=== PATIENT | female | born 1955 | race Caucasian/White ===

== ENCOUNTER 2020-03-10 13:02 | Outpatient (REF) | payer MEDICARE, OTHER, SELFPAY ==
--- NOTE | 2020-03-10 | XR_ITS ---
EXAMINATION: XR SHOULDER, RIGHT CLINICAL INFORMATION: Pain COMPARISON: None TECHNIQUE: Three views of the right shoulder. FINDINGS: Bone alignment is normal. No acute fracture or dislocation is seen. There is an old right ninth and 10th rib fractures. Glenohumeral and acromioclavicular joints are normal. Soft tissues are normal. XR/XR shoulder RT min 2V IMPRESSION: Normal right shoulder. Old right rib fractures.
== END 2020-03-10 13:03 | disposition home or self-care (01) ==
LOC: HO.HMGCX 13:02
PROVIDERS: PCP Internal Medicine; Visit Provider Internal Medicine
DX: M25.511 Pain in right shoulder (principal)
CPT/HCPCS: 73030

== ENCOUNTER 2020-03-27 13:28 | Outpatient (REF) | payer MEDICARE, OTHER, SELFPAY ==
--- NOTE | 2020-03-27 | MR_ITS ---
EXAMINATION: MR SHOULDER WITHOUT CONTRAST, RIGHT CLINICAL INFORMATION: Right shoulder pain. Limited range of motion. COMPARISON: 03/10/2020 TECHNIQUE: MRI of the shoulder without contrast was performed on a high-field scanner. FINDINGS: ROTATOR CUFF: There is mild supraspinatus and subscapularis tendinosis. No rotator cuff tears. No muscle atrophy or fatty infiltration. BICEPS: Normal. CORACOACROMIAL ARCH: The undersurface of the acromion is minimally curved with no subacromial spur. The acromioclavicular joint is normal. LABRUM/CAPSULE: The labrum is intact. The joint capsule is thickened and edematous at the inferior glenohumeral ligament around the axillary pouch and, to a lesser extent, at the coracohumeral and superior glenohumeral ligaments. GLENOHUMERAL JOINT/MARROW: Trace effusion. Small glenoid osteophytes are present. No fracture or malalignment. Articular cartilage appears relatively well-preserved. MR/MR shoulder RT wo con IMPRESSION: 1. Capsular thickening and edema at the right glenohumeral joint are most consistent with adhesive capsulitis provided the appropriate clinical suspicion. A capsular sprain is also possible. 2. Mild supraspinatus and subscapularis tendinosis. No tears. 3. Minimal glenohumeral osteoarthritis.
== END 2020-03-27 13:29 | disposition home or self-care (01) ==
LOC: HO.MRI 13:28
PROVIDERS: Visit Provider Internal Medicine
DX: R52 Pain, unspecified (principal)
CPT/HCPCS: 73221

== ENCOUNTER 2020-04-18 13:00 | Outpatient (RCR) | payer MEDICARE, OTHER, SELFPAY ==
--- NOTE | 2020-05-15 13:20 | MHC.PT.DC ---
[facility] [place] Office [place] [facility] [place] Office [address] Rai Sanders [address] [phone] F: [phone] F: [phone] F: [phone] F: [phone] Physical Therapy Discharge Report Diagnosis: This is a 64 yo female presenting to skilled PT with a script for R shoulder pain. Date of Surgery: Date of Evaluation: 04/02/20 Date of Discharge: 05/15/20 Treatments to Date: 2 Cancellations to Date: 0 No Shows to Date: 0 Discharge Status: Achieved Goals Improved Function Independent with HEP Discharge Summary: Patient tolerated all exercises well without increase in pain. She feels like she can perform the exercises at home for now. Educated her to call the office if needed to review exercises in the mean time otherwise DC to HEP (kept chart open for 30 days prior to DC). Electronically signed by: Evangelina Grant PT Please sign and return to therapist. Thank you for your referral.
== END 2020-05-15 13:20 | disposition home or self-care (01) ==
LOC: HO.PTCHIC 13:00
PROVIDERS: PCP Internal Medicine; Visit Provider Internal Medicine
DX: M25.511 Pain in right shoulder (principal)
CPT/HCPCS: 97110; 97162

== ENCOUNTER → 2020-05-27 08:14 | Outpatient (BNVA) | payer MEDICARE, OTHER, SELFPAY | PROVIDERS: Visit Provider Orthopaedic Surgery | DX: M75.01 Adhesive capsulitis of right shoulder (principal) | CPT/HCPCS: Q3014 ==

== ENCOUNTER 2020-07-02 13:00 | Outpatient (RCR) | payer MEDICARE, OTHER, SELFPAY ==
--- NOTE | 2020-06-02 08:18 | MHC.PT.EP ---
[facility] [place] Office [place] Office [place] Office [address] Rai Sanders [address] [phone] F: [phone] F: [phone] F: [phone] F: [phone] Physical Therapy Plan of Care Date of Evaluation: 06/02/20 Date of Surgery: NA Diagnosis: Adhesive capsulitis R shoulder Assessment: 64 y/o LHD female referred to skilled PT for R shoulder adhesive capsultis. Reports limited with reaching overhead into cabinets, lifting, and reaching behind her back. Examination shows decreased R shoulder A/PROM, decreased shoulder strength, very poor posturing and decreased glenohumeral joint mobility. She demos increased thoracic kyphosis, anteriorly placed GHJ and grossly rounded posturing with forward head. Recommend skilled PT 2x/week for 6 weeks to address impairments, implement HEP, and optimize functional mobility. Frequency and Duration: The patient will be seen 2x/week for 6 weeks Short Term Goals: 3 weeks: 1. I with HEP 2. Improve R shoulder AROM to 130 in standing to assist in reaching overhead 3. Pt will demonstrate no trunk compensation with shoulder AROM exercises [employer] Goals: 6 weeks: 1. I with HEP and self management of sx 2. Pt will be improve R shoulder strength by 1 MMT grade to assist in carrying 15# grocery bags with pain < 2/10 Treatment Plan: Modalities to reduce pain, spasms and effusion. Manual therapy to restore motion and function. Therapeutic exercise to improve strength and flexibility. Neuromuscular re-education for posture and balance. Therapeutic activities to return to functional activities of daily living. Electronically signed by: Kamila Reynoso PT Please sign and return to therapist. Thank you for your referral.
--- NOTE | 2020-07-11 08:29 | MHC.PT.DC ---
[facility] [place] Office [place] Office [place] Office [address] Rai Sanders [address] [phone] F: [phone] F: [phone] F: [phone] F: [phone] Physical Therapy Discharge Report Diagnosis: Adhesive capsulitis R shoulder Date of Surgery: NA Date of Evaluation: 06/02/20 Date of Discharge: 07/11/20 Treatments to Date: 6 Cancellations to Date: 0 No Shows to Date: 0 Discharge Status: Improved Function Independent with HEP Discharge Summary: Pt called and reported seeing [facility]. Per patient, they said she has full ROM and no longer needs PT. She was going to come for last visit today but she is sick so sef-discharge via phone. She is I with HEP and improved function. D/c at this time. Electronically signed by: Meg Arroyo PTA Please sign and return to therapist. Thank you for your referral.
== END 2020-07-11 08:30 | disposition home or self-care (01) ==
LOC: HO.PTCHIC 13:00
PROVIDERS: Visit Provider Orthopaedic Surgery
DX: M75.01 Adhesive capsulitis of right shoulder (principal)
CPT/HCPCS: 97110; 97140; 97161

== ENCOUNTER → 2020-07-08 11:39 | Outpatient (BNVA) | payer MEDICARE, OTHER, SELFPAY | PROVIDERS: Visit Provider Orthopaedic Surgery | DX: M75.01 Adhesive capsulitis of right shoulder (principal) | CPT/HCPCS: 99212 ==

== ENCOUNTER 2020-09-18 13:50 | Outpatient (REF) | payer MEDICARE, OTHER, SELFPAY ==
--- NOTE | ~2020-09-18 | US_ITS ---
EXAMINATION: US RETROPERITONEAL LIMITED (RENAL ONLY) CLINICAL INFORMATION: Lipomatous neoplasm of kidney. COMPARISON: Renal ultrasound 09/19/2019 and 10/20/2018. CT abdomen and pelvis 01/07/2015. TECHNIQUE: Real-time imaging of the kidneys. FINDINGS: RIGHT KIDNEY: 9.9 x 5.1 x 4.9 cm (SAG x AP x TRV). The kidney is normal in size, contour, and echogenicity. Renal cortical thickness is normal. No renal calculi or hydronephrosis. There is an anechoic cyst in the mid pole measuring 1.0 x 0.7 x 1.1 cm and a lower pole cyst measuring 0.7 x 0.6 x 0.7 cm. There is an echogenic solid mass in the mid pole medially measuring 1.2 x 1.8 x 1.7 cm, angiomyolipoma; previously it measured 2.2 x 2.0 x 1.[address] of 2014, it measured 2.1 x 1.8 x 1.6 cm. LEFT KIDNEY: 10.6 x 4.9 x 5 cm (SAG x AP x TRV). The kidney is normal in size, contour, and echogenicity. Renal cortical thickness is normal. No calculi or focal parenchymal lesions. No hydronephrosis. US/US renal BI IMPRESSION: Stable right renal angiomyolipoma. There are 2 right renal cysts. The interpolar cyst was seen previously and measured 0.8 cm and appears unchanged. There is a new cyst in the mid pole measuring 1.0 cm. Unremarkable left kidney.
== END 2020-09-18 13:51 | disposition home or self-care (01) ==
LOC: HO.US 13:50
PROVIDERS: Visit Provider Urology
DX: D17.71 Benign lipomatous neoplasm of kidney (principal)
CPT/HCPCS: 76775

== ENCOUNTER → 2020-09-23 13:32 | Outpatient (BNVA) | payer MEDICARE, OTHER, SELFPAY | PROVIDERS: PCP Internal Medicine; Referring Provider Internal Medicine; Visit Provider Urology | DX: D17.71 Benign lipomatous neoplasm of kidney (principal) | CPT/HCPCS: Q3014 ==

== ENCOUNTER 2020-10-10 15:53 | Outpatient (REF) | payer MEDICARE, OTHER, SELFPAY ==
--- NOTE | ~2020-10-10 | MM_ITS ---
EXAMINATION: MM SCREENING DIGITAL BREAST TOMOSYNTHESIS, BILATERAL CLINICAL INFORMATION: Screening. Asymptomatic. The lifetime risk of breast cancer based on the Tyrer-Cuzick Model is 5%. COMPARISON: Mammography: 02/05/2019, 12/15/2017, 11/10/2016 TECHNIQUE: Digital breast tomosynthesis is performed in both the craniocaudal and mediolateral oblique views along with computer-aided detection (CAD). Synthesized 2D images are generated from the tomosynthesis. FINDINGS: The breasts are heterogeneously dense, which may obscure small masses (ACR BI-RADS breast composition Category c). Breast tissue composition borders on extremely dense. Parenchymal pattern is similar to prior studies. There is asymmetry of the breasts, larger on left similar to prior exam. Again, there are diffuse calcifications present, more numerous on left. There is no interval mass or architectural abnormality or developing density. The axilla and skin contours are unremarkable. MM/MM tomosynthesis screening BI IMPRESSION: No mammographic evidence of malignancy. No significant changes from prior studies. ASSESSMENT: BI-RADS 2: Benign RECOMMENDATION: Routine annual mammography screening. This patient's information was entered into a reminder system with a target due date for their next mammogram.
== END 2020-10-10 15:54 | disposition home or self-care (01) ==
LOC: HO.MAMMO 15:53
PROVIDERS: PCP Internal Medicine; Visit Provider Internal Medicine
DX: Z12.31 Encounter for screening mammogram for malignant neoplasm of breast (principal)
CPT/HCPCS: 77063; 77067

== ENCOUNTER 2020-12-29 08:32 | Day surgery (SDC) | payer MEDICARE, OTHER, SELFPAY ==
[2020-12-19 16:11] VITALS: BMI 18.9
--- NOTE | 2020-12-29 07:05 | MHC.SHP ---
Pre-Procedural Eval Section A Date of Service: 12/29/20 Section B Chief Complaint: Right Eye Cataract Allergies: Allergies Allergy/AdvReac Type Severity Reaction Status Date / Time aspirin AdvReac Unknown has an Uncoded 12/19/20 16:11 ulcer naproxen AdvReac Unknown ulcer Uncoded 12/19/20 16:11 Plan I have reviewed the history and physical and performed a pertinent physical examination on my patient. No changes have occurred unless specified.
[2020-12-29 11:29] VITALS: BP 153/69; PULSE 72; RESP 16; TEMP 37.1; O2SAT 99
[2020-12-29] MEDS: Lactated Ringers 500 ML 50 ML IVCONT (11:43)
[2020-12-29] MEDS: Tetracaine HCl/PF 0.5% Oph Sol 4 ML DROPS 1 DROP EYE-RIGHT (11:46)
[2020-12-29] MEDS: Tropicamide 1 % Ophth Sol 3 ML BTL 1 DROP EYE-RIGHT ×3 (11:47→11:56)
[2020-12-29] MEDS: Phenylephrine HCL 2.5% Oph SoL 2 ML BOTTLE 1 DROP EYE-RIGHT ×3 (11:50→11:59)
--- NOTE | 2020-12-29 12:00 | P.CONAN_ITS ---
HPI - Anesthesia Eval Consult details Narrative: Right eye cataract PMFSH Active Problems Active Problems: All Active Problems (Updated 12/19/20 @ 16:11 by Ava Sherman) Adhesive capsulitis of right shoulder (Acute) Angiomyolipoma of kidney (Acute) Past Medical History Medical History Benign tumor of kidney COVID-19 vaccine series completed Hx of gastric ulcer Hypertension Osteoporosis Family History Family history of problems with anesthesia: No Surgical History Surgical History History of tonsillectomy and adenoidectomy Hx of colonoscopy Hx of left cataract extraction S/P ear surgery [place] teeth extracted History of Problems with Anesthesia: No Social History Social History Are you a primary aged or disabled care worker to a significant other at home: No Do you presently have visiting nurse or other home services: No Patient Tobacco Use Status: Never used Tobacco Use of substances other than those prescribed or required for medical reasons: No Have you been hit, kicked, punched, or otherwise hurt by someone within the past year? If so, by whom?: No Are you DNR?: No Advance Directives: No Advance Directives Information Provided: No Advance Directives on File: No Recently lost weight without trying: No Eating poorly because of decreased appetite: No Nutrition Risks: No Nutritional Risk Patient : No Current occupational status: retired Current occupation: Left Handed Meds Allergies Allergy/AdvReac Type Severity Reaction Status Date / Time aspirin AdvReac Unknown has an Uncoded 12/29/20 11:28 ulcer naproxen AdvReac Unknown ulcer Uncoded 12/29/20 11:28 Active Medications: Current Medications Generic Name Dose Route Start Last Admin Trade Name Freq PRN Reason Stop Dose Admin Lactated Ringer's 1,000 mls @ 50 mls/hr 12/26/20 12:15 Lr IVCONT .Q20H CLOVER Lactated Ringer's 500 mls @ 50 mls/hr 12/29/20 07:45 12/29/20 11:43 Lr IVCONT 50 mls/hr .Q10H CL[place] Administration Povidone Iodine 1 appl 12/29/20 07:05 Povidone Iodine 5 % Ophth Soln 30 Ml Bottle EYE-RIGHT PREOP PRN Pre-Op Surgical Implant Prophy Home Medications Medication Instructions Recorded Confirmed Last Taken Type alendronate 70 mg tablet 70 mg PO QWEEK 04/15/20 12/19/20 Unknown History atorvastatin 20 mg tablet 20 mg PO BEDTIME 04/15/20 12/19/20 Unknown History losartan 50 mg tablet 50 mg PO DAILY 09/23/20 12/19/20 12/29/20 06:00 History omeprazole 20 mg capsule,delayed 20 mg PO DAILY 12/19/20 12/19/20 12/29/20 06:00 History release Exam Exam Date and Time: December 29, 20201199 Height,Weight and Vital Signs: Height 5 ft 5 in Weight 51.71 kg Last Vital Signs Temp 98.7 F 12/29/20 11:29 Pulse 72 12/29/20 11:29 Resp 16 12/29/20 11:29 BP 153/69 H 12/29/20 11:29 Pulse Ox 99 12/29/20 11:29 Airway Mallampati Class: II TM Dist: >3cm Neck ROM: Full Denture: Upper and Lower Loose/Missing/Broken Teeth: Yes Heart: [id number] Lungs: cta b/l Assessment and Plan Assessment Anesthesia Assessment: Anesthesia Plan Discussed and Chart Reviewed Final Anesthetic Review Family History of Problems with Anesthesia: No History of Problems with Anesthesia: No NPO: Yes ASA Class: III Final Preanesthetic Review: No Changes in Pt Med Stat, Meds/Allgs Chart Reviewed, Consent Obtained/Reviewed and Anes Risks/Benef Reviewed Patient Risk: Intermediate Procedure Risk: Low Assessment/Block/Sedation in SS: Assess/Block/Sedation-SS Anesthetic Plan Anesthetic Plan: MAC: and Agree w/ Assess. and Plan Disposition: Standard PACU
--- NOTE | 2020-12-29 12:42 | HO.PNOPHT ---
Ophthalmology Procedure Procedure Date of Service: 12/29/20 Ophthalmology Viscoelastic: Crystal Oharat Dual Pack Pro Ophthalmology Lenses: TECNIS [id number] (16.5) Procedure Notes: PREOPERATIVE DIAGNOSIS: Decreased visual acuity right eye secondary to cataract POSTOPERATIVE DIAGNOSIS: Same PROCEDURE: Right cataract extraction with intraocular lens insertion with Posterior Capsulotomy SURGEON: Damien Bui M.D. ANESTHESIA: Topical/MAC ESTIMATED BLOOD LOSS: None COMPLICATIONS: None After obtaining informed consent, the patient was brought to the operating room suite and placed in the supine position. After adequate sedation per anesthesia, topical drops of Tetracaine were given to the right eye. The eye was then prepped and draped in the usual sterile fashion. The operating room microscope was then positioned over the operative eye and a lid speculum placed. A paracentesis was created. Viscoelastic was then instilled into the anterior chamber. A three plane incision was then created temporally, utilizing a 2.85 mm keratome. Capsulotomy forceps were then utilized to create a circular tear capsulotomy. Hydrodissection and hydrodelineation were carried out until adequate mobilization of the nucleus occurred. Phacoemulsification was then utilized to remove the dense central nucleus followed by removal of the cortical material utilizing the automated aspiration irrigation unit. Viscoelastic was instilled into the posterior capsular bag followed by a Posterior Capsulotomy due to a dense posterior capsular opcaity. Placement of a posterior chamber intraocular lens withoutdifficulty into the sulcus with Optic capture The residual Viscoelastic was then removed utilizing the automated IA machine. The wound was checked and found to be watertight. The patient tolerated the procedure well and the lid speculum was removed. Intracameral injection of Vigamox 0.1 mL followed by a subtenon injection of Kenalog-40 0.2 mL were administered. The patient will be seen in the a.m.
[2020-12-29 13:30] VITALS: BP 146/64; PULSE 58; RESP 16; TEMP 36.7; O2SAT 98
[2020-12-29] MEDS: Acetaminophen 325 MG TABLET 650 MG PO (13:30)
== END 2020-12-29 13:46 | disposition home or self-care (01) ==
PROVIDERS: PCP Internal Medicine; Visit Provider Ophthalmology
PROC: (CPT 66985; principal; 2020-12-29 11:40)
DX: H25.11 Age-related nuclear cataract, right eye (principal); H54.7 Unspecified visual loss; Z96.1 Presence of intraocular lens; I10 Essential (primary) hypertension; M81.0 Age-related osteoporosis without current pathological fracture; Z79.899 Other long term (current) drug therapy
CPT/HCPCS: 66984; J3010; J3300; V2632

== ENCOUNTER 2021-09-23 15:36 | Outpatient (REF) | payer MEDICARE, OTHER, SELFPAY ==
--- NOTE | ~2021-09-23 | US_ITS ---
EXAMINATION: US RETROPERITONEAL LIMITED (RENAL ONLY) CLINICAL INFORMATION: Calculus of kidney. COMPARISON: Renal ultrasound 09/18/2020, renal ultrasound 09/19/2019, CT abdomen and pelvis 01/07/2015 TECHNIQUE: Real-time imaging of the kidneys. FINDINGS: RIGHT KIDNEY: 9.4 x 3.3 x 4.3 cm (SAG x AP x TRV). Renal cortical thickness is normal. No renal calculi or hydronephrosis. There are 3 subcentimeter cysts present two of which are within the midpole region and the third is in the lower pole. Within the interpolar region there is a homogeneously hyperechoic lesion measuring 2.0 x 1.7 x 1.7 cm in size representing a stable angiomyolipoma. LEFT KIDNEY: 10.3 x 4.8 x 4.3 cm (SAG x AP x TRV). The kidney is normal in size, contour, and echogenicity. Renal cortical thickness is normal. No calculi or focal parenchymal lesions. No hydronephrosis. US/US renal BI IMPRESSION: Stable renal ultrasound study demonstrating multiple right renal subcentimeter cysts as well as a stable angiomyolipoma.
== END 2021-09-23 15:37 | disposition home or self-care (01) ==
LOC: HO.US 15:36
PROVIDERS: Visit Provider Urology
DX: D17.71 Benign lipomatous neoplasm of kidney (principal); N20.0 Calculus of kidney
CPT/HCPCS: 76775

== ENCOUNTER → 2021-11-17 10:08 | Outpatient (BNVA) | payer MEDICARE, OTHER, SELFPAY | PROVIDERS: PCP Internal Medicine | DX: D17.71 Benign lipomatous neoplasm of kidney (principal) | CPT/HCPCS: Q3014 ==

== ENCOUNTER 2021-11-26 10:11 | Outpatient (REF) | payer MEDICARE, OTHER, SELFPAY ==
--- NOTE | ~2021-11-26 | MM_ITS ---
EXAMINATION: MM SCREENING DIGITAL BREAST TOMOSYNTHESIS, BILATERAL CLINICAL INFORMATION: Screening. Asymptomatic. The lifetime risk of breast cancer based on the Tyrer-Cuzick Model is 5%. COMPARISON: Mammography: 10/10/2020, 02/05/2019, 12/15/2017 TECHNIQUE: Digital breast tomosynthesis is performed in both the craniocaudal and mediolateral oblique views along with computer-aided detection (CAD). Synthesized 2D images are generated from the tomosynthesis. Additional bilateral MLO views are provided. FINDINGS: The breasts are heterogeneously dense, which may obscure small masses (ACR BI-RADS breast composition Category c). Mammography and is similar to prior studies. There is no interval mass or developing density or architectural abnormality. Breast tissue composition borders on extremely dense. The axilla and skin contours are unremarkable. Again, there are numerous punctate round calcifications, greater in number on left. Distribution and number appears similar to prior studies. Again, there are breast asymmetry, left larger. No significant changes. MM/MM tomosynthesis screening BI IMPRESSION: No significant changes from prior studies. ASSESSMENT: BI-RADS 2: Benign RECOMMENDATION: Routine annual mammography screening. This patient's information was entered into a reminder system with a target due date for their next mammogram.
== END 2021-11-26 10:12 | disposition home or self-care (01) ==
LOC: HO.MAMMO 10:11
PROVIDERS: Visit Provider Internal Medicine
DX: Z12.31 Encounter for screening mammogram for malignant neoplasm of breast (principal)
CPT/HCPCS: 77063; 77067

== ENCOUNTER 2022-04-05 12:40 | Outpatient (REF) | payer MEDICARE, OTHER, SELFPAY | END 2022-04-05 12:41 | disposition home or self-care (01) | LOC: HO.HAP 12:40 | PROVIDERS: Visit Provider Internal Medicine | DX: Z13.89 Encounter for screening for other disorder (principal) ==

== ENCOUNTER 2022-05-03 08:23 | Outpatient (REF) | payer SELFPAY | END 2022-05-03 08:24 | disposition home or self-care (01) | LOC: HO.HAP 08:23 | PROVIDERS: Visit Provider Internal Medicine | DX: Z46.1 Encounter for fitting and adjustment of hearing aid (principal); H90.3 Sensorineural hearing loss, bilateral | CPT/HCPCS: V5014 ==

== ENCOUNTER 2022-08-23 10:23 | Outpatient (REF) | payer MEDICARE, OTHER, SELFPAY ==
--- NOTE | ~2022-08-23 | US_ITS ---
EXAMINATION: US RETROPERITONEAL LIMITED (RENAL ONLY) CLINICAL INFORMATION: Benign lipomatous neoplasm of kidney. COMPARISON: Renal ultrasound 09/23/2021 CT abdomen and pelvis 01/07/2015. TECHNIQUE: Real-time imaging of the kidneys. FINDINGS: RIGHT KIDNEY: 9.8 x 3.8 x 5.6 cm (SAG x AP x TRV). The kidney is normal in size, contour, and echogenicity. Renal cortical thickness is normal. No hydronephrosis. Benign-appearing renal cysts measuring up to 0.9 cm. A 1.7 cm echogenic avascular right lower pole renal lesion corresponding to a macroscopic fat-containing angiomyolipoma on prior CT, previously 1.8 cm. Right renal parenchymal cortical scarring. 2 mm nonobstructing lower pole renal stone. LEFT KIDNEY: 10.9 x 3.7 x 4.5 cm (SAG x AP x TRV). The kidney is normal in size, contour, and echogenicity. Renal cortical thickness is normal. No calculi or focal parenchymal lesions. No hydronephrosis. US/US renal BI IMPRESSION: 1. A 2.7 cm echogenic avascular right lower pole renal lesion corresponding to a macroscopic fat-containing angiomyolipoma on prior CT. 2. A 2 mm nonobstructing right lower pole renal stone.
== END 2022-08-23 10:24 | disposition home or self-care (01) ==
LOC: HO.HMGCX 10:23
PROVIDERS: PCP Internal Medicine; Visit Provider Nurse Practitioner Family
DX: D17.71 Benign lipomatous neoplasm of kidney (principal)
CPT/HCPCS: 76775

== ENCOUNTER 2022-12-23 14:16 | Outpatient (REF) | payer MEDICARE, OTHER, SELFPAY ==
--- NOTE | ~2022-12-23 | MM_ITS ---
EXAMINATION: MM SCREENING DIGITAL BREAST TOMOSYNTHESIS, BILATERAL CLINICAL INFORMATION: Screening. Asymptomatic. COMPARISON: Mammography: This study is compared with prior exams dating back to 2018. TECHNIQUE: Digital breast tomosynthesis is performed in both the craniocaudal and mediolateral oblique views along with computer-aided detection (CAD). Synthesized 2D images are generated from the tomosynthesis. FINDINGS: The breasts are heterogeneously dense, which may obscure small masses (ACR BI-RADS breast composition Category c). There are no significant masses, abnormal calcifications, or other abnormalities. Bilateral benign calcifications are present in each breast. MM/MM tomosynthesis screening BI IMPRESSION: No mammographic evidence of malignancy. ASSESSMENT: BI-RADS BI-RADS 2 - Benign Findings RECOMMENDATION: Routine annual mammography screening. 1 year F/U This examination should not preclude the clinical evaluation of a suspicious palpable abnormality. This patient's information was entered into a reminder system with a target due date for their next mammogram.
== END 2022-12-23 14:17 | disposition home or self-care (01) ==
LOC: HO.MAMMO 14:16
PROVIDERS: PCP Internal Medicine; Visit Provider Internal Medicine
DX: Z12.31 Encounter for screening mammogram for malignant neoplasm of breast (principal)
CPT/HCPCS: 77063; 77067

== ENCOUNTER → 2022-12-23 15:15 | Outpatient (BNV) | payer MEDICARE, OTHER, SELFPAY | PROVIDERS: PCP Internal Medicine; Visit Provider Radiology Diagnostic Radiology | DX: Z12.31 Encounter for screening mammogram for malignant neoplasm of breast (principal) | CPT/HCPCS: 77063; 77067 ==

== ENCOUNTER 2022-12-24 09:40 | Outpatient (AMB) | payer MEDICARE, OTHER, SELFPAY ==
--- NOTE | 2022-12-24 09:45 | A.OFFVIS_ITS ---
Intake Intake Visit Reasons: 1 year follow up with US(set) Intake Note: Patient is present for follow up angiomyolipoma of kidney/ultrasound (imaging 08/23/22) Urology Medication: None Blood Thinner: None Software Quality Assurance Analyst Required: No Accompanied by: Self / Same As Patient Allergies aspirin Adverse Reaction (Unknown, Uncoded 12/24/22 10:06) has an ulcer naproxen Adverse Reaction (Unknown, Uncoded 12/24/22 10:06) ulcer Medication List - Last Reconciled 12/24/22 by LESIA Danielle alendronate 70 mg PO QWEEK atorvastatin 20 mg PO BEDTIME loratadine 10 mg PO DAILY losartan 50 mg PO DAILY omeprazole 20 mg PO DAILY propranolol ER 160 mg PO DAILY pyridoxine (vitamin B6) 100 mg PO DAILY 90 days HPI HPI Comments History of Present Illness Details Zoe is a very pleasant 67-year-old female patient of Dr. Fontanez. She has a past medical history of gastric ulcer, hypertension, and osteoporosis. She presents to the office today for follow-up of her angiomyolipoma. In discussion with the patient today she reports to be doing and feeling well. Recent renal imaging results reviewed with the patient today. Right kidney with benign-appearing renal cysts measuring up to 0.9 cm. A 1.7 echogenic avascular right lower pole renal lesion corresponding to a microscopic fat containing angiolipoma on prior CT previously 1.8 cm. 2 mm non obstructing lower pole renal calculi. Left kidney with no calculi, lesions, and or hydronephrosis noted. Patient denies any urinary issues or concerns at this time. When asked she denies urinary urgency, urinary frequency, incontinence, nocturia, hematuria, dysuria, foul smelling urine, changes to urinary stream, flank pain, fever, and or chills. She is happy with her current voiding parameters. In office urinalysis results reviewed with the patient today. Discussed at length importance of drinking plenty of water daily. She otherwise offers no issues or concerns. [facility] Medical History Benign tumor of kidney COVID-19 vaccine series completed Hx of gastric ulcer Hypertension Osteoporosis Surgical History History of tonsillectomy and adenoidectomy Hx of colonoscopy Hx of left cataract extraction S/P ear surgery [place] teeth extracted Social History Are you a primary patient care provider to a significant other at home: No Do you presently have visiting nurse or other home services: No Patient Tobacco Use Status: Never used Tobacco Current occupational status: retired Current occupation: Left Handed Review of Systems Eyes Reports no additional complaints ENT Reports no additional complaints Card Reports as per HPI Resp Reports no additional complaints GI Reports no additional complaints Reports as per HPI Musc Reports as per HPI Neuro Reports no additional complaints Psych Reports no additional complaints Endo Reports no additional complaints Physical Exam Const General: cooperative, healthy appearing, comfortable, no acute distress, well developed, alert and awake Orientation/consciousness: patient oriented x3 Limitations: no limitations HEENT Head: Yes normal to inspection, Yes normocephalic and Yes atraumatic Ears: hearing grossly normal bilaterally Eyes General: appearance normal, both eyes and all related structures Neck Neck: Yes normal visual inspection and Yes trachea midline Chest Chest palpation & inspection: normal inspection of the chest Resp Effort & Inspection: normal respiratory effort and able to speak in complete sentences Cardio Rate: regular rate GI Inspection: Yes normal to inspection General: Yes no CVA tenderness Back/Spine/Pelvis Back: no CVA tenderness Skin General skin exam: no rashes or lesions noted Neuro General: patient oriented x3 Extrem General: Yes normal to inspection Psych Appearance: grossly normal and well kempt Mental Status: mental status grossly normal Speech and movement: Normal speech and movement present and Clear speech present Affect: normal affect Attitude: cooperative Thought process: Normal thought process present Thought content: Normal thought content present Insight: Good insight present (Psych) Judgement: Good judgement present (Psych) Results AMB Urinalysis, Automated UA Leukoctes 0 Peter/uL Last Edit by Bandar Plunkett on 12/24/22 09:56 UA Nitrite Negative Last Edit by Bandar Plunkett on 12/24/22 09:56 UA Urobilinogen 0.2 mg/dL Last Edit by Bandar Plunkett on 12/24/22 09:56 UA Protein 0 mg/dL Last Edit by Bandar Plunkett on 12/24/22 09:56 UA pH 6.5 Last Edit by Bandar Plunkett on 12/24/22 09:56 UA Blood 10 Jayjay/uL Last Edit by Bandar Plunkett on 12/24/22 09:56 UA Specific [place] 1.010 Last Edit by Bandar Plunkett on 12/24/22 09:56 UA Ketone Negative Last Edit by Bandar Plunkett on 12/24/22 09:56 UA Bilirubin 0 mg/dL Last Edit by Bandar Plunkett on 12/24/22 09:56 UA Glucose 0 mg/dL Last Edit by Bandar Plunkett on 12/24/22 09:56 Results Reviewed Results Reviewed: Laboratory Last Values Urine pH (Auto) 6.5 12/24/22 09:47 Specific [place] (Auto) 1.010 12/24/22 09:47 Urine Protein (Auto) 0 mg/dL 12/24/22 09:47 Glucose (UA)(Auto) 0 mg/dL 12/24/22 09:47 Urine Ketones (Auto) Negative 12/24/22 09:47 Urine Blood (Auto) 10 Jayjay/uL 12/24/22 09:47 Urine Nitrite (Auto) Negative 12/24/22 09:47 Urine Bilirubin (Auto) 0 mg/dL 12/24/22 09:47 Urine Urobilinogen (Auto) 0.2 mg/dL 12/24/22 09:47 Leukocyte Esterase (Auto) 0 Peter/uL 12/24/22 09:47 Date of Service: 08/23/22 EXAMINATION: US RETROPERITONEAL LIMITED (RENAL ONLY) FINDINGS: RIGHT KIDNEY: 9.8 x 3.8 x 5.6 cm (SAG x AP x TRV). The kidney is normal in size, contour, and echogenicity. Renal cortical thickness is normal. No hydronephrosis. Benign-appearing renal cysts measuring up to 0.9 cm. A 1.7 cm echogenic avascular right lower pole renal lesion corresponding to a macroscopic fat-containing angiomyolipoma on prior CT, previously 1.8 cm. Right renal parenchymal cortical scarring. 2 mm nonobstructing lower pole renal stone. LEFT KIDNEY: 10.9 x 3.7 x 4.5 cm (SAG x AP x TRV). The kidney is normal in size, contour, and echogenicity. Renal cortical thickness is normal. No calculi or focal parenchymal lesions. No hydronephrosis. IMPRESSION: 1.? A 2.7 cm echogenic avascular right lower pole renal lesion corresponding to a macroscopic fat-containing angiomyolipoma on prior CT. 2.? A 2 mm nonobstructing right lower pole renal stone. Assessment & Plan Assessment & Plan (1) Angiomyolipoma of kidney: Code(s): D17.71 - Benign lipomatous neoplasm of kidney (2) Nephrolithiasis: Code(s): N20.0 - Calculus of kidney (3) Renal cyst: Code(s): N28.1 - Cyst of kidney, acquired Plan In office urinalysis results reviewed with the patient today; as noted above Recent renal imaging results reviewed with the patient today; as noted above Discussed, educated, instructed on the importance of drinking plenty of water daily. Patient denies any urinary issues or concerns at this time and reports to be happy with her current voiding parameters. Discussed adding 1 oz of lemon juice to water daily. Start Vitamin B6 as discussed and prescribed Will continue with surveillance monitoring monitoring of renal cysts/angiolipoma Renal ultrasound in 1 year Follow-up in 1 year with imaging to be completed prior; or sooner with any questions, concerns, or issues. Orders: Orders US renal BI 364 Days D17.71 - Benign lipomatous neoplasm of kidney, N20.0 - Calculus of kidney AMB Urinalysis Automated Today Z13.9 - Encounter for screening, unspecified Medications: New pyridoxine (vitamin B6) 100 mg PO DAILY 90 days 90 tabs 3RF Patient Instructions: The patient had an opportunity to ask questions regarding the treatment plan. All questions were answered. Physical exam, labs, and imaging were discussed and reviewed in detail. As well as risks, benefits, and discussion of treatment choices. No major barriers to understanding were identified. The patient expressed understanding and agreement with the above treatment plan. The patient was made aware they should contact our office by phone for worsening of their current condition, the appearance of new symptoms, or with any questions or concerns. Compliance is encouraged with any medications and follow up testing that is ordered. It is a privilege to be allowed the opportunity to participate in? your urological care.? Again, if you have any questions or concerns If you have any questions or concerns please do not hesitate to contact me. The office is [phone]. This note is constructed using voice recognition software. While every effort has been made to ensure accuracy mechanical tech errors may have been included. Yours sincerely, Ciara Rocha, [employer]- Coding Level of Care Code Est Pt Level 4 (59739) Diagnoses Angiomyolipoma of kidney D17.71 Nephrolithiasis N20.0 Renal cyst N28.1
== END 2022-12-24 10:07 | disposition home or self-care (01) ==
PROVIDERS: Visit Provider Nurse Practitioner Family
DX: D17.71 Benign lipomatous neoplasm of kidney (principal); N20.0 Calculus of kidney; N28.1 Cyst of kidney, acquired
CPT/HCPCS: 99214

== ENCOUNTER → 2022-12-24 09:40 | Outpatient (BNVA) | payer MEDICARE, OTHER, SELFPAY | PROVIDERS: Visit Provider Nurse Practitioner Family | DX: N20.0 Calculus of kidney (principal); N28.1 Cyst of kidney, acquired; D17.71 Benign lipomatous neoplasm of kidney | CPT/HCPCS: 99212 ==

== ENCOUNTER 2023-09-02 11:32 | Emergency (ER) | payer MEDICARE, OTHER, SELFPAY ==
--- NOTE | ~2023-09-02 | XR_ITS ---
STUDY: Lumbar spine, AP pelvis and left hip INDICATION: Pain after fall COMPARISON: None TECHNIQUE: 3 view lumbar spine, AP pelvis, two-view left hip FINDINGS: Lumbar spine: Diffuse demineralization. Levoscoliosis. Mild anterolisthesis L5 on S1. Multilevel spurring, mild anterior wedging upper lumbar and lower thoracic vertebral bodies otherwise vertebral body heights are maintained. Due to positioning and degree of demineralization, pedicles are poorly seen. SI joints appear within normal limits. Dense vascular calcifications. Nonspecific bowel pattern. Pelvis and left hip: Demineralization. Bony pelvis appears intact. Bilateral hip joint narrowings. No acute fracture or dislocation. Phleboliths. XR/XR lumbar spine 2-3V IMPRESSION: Demineralization. Mild anterolisthesis L5 on S1. Mild bilateral hip joint narrowings. No acute bony pathology lumbar spine, pelvis and left hip.
--- NOTE | ~2023-09-02 | XR_ITS ---
STUDY: Lumbar spine, AP pelvis and left hip INDICATION: Pain after fall COMPARISON: None TECHNIQUE: 3 view lumbar spine, AP pelvis, two-view left hip FINDINGS: Lumbar spine: Diffuse demineralization. Levoscoliosis. Mild anterolisthesis L5 on S1. Multilevel spurring, mild anterior wedging upper lumbar and lower thoracic vertebral bodies otherwise vertebral body heights are maintained. Due to positioning and degree of demineralization, pedicles are poorly seen. SI joints appear within normal limits. Dense vascular calcifications. Nonspecific bowel pattern. Pelvis and left hip: Demineralization. Bony pelvis appears intact. Bilateral hip joint narrowings. No acute fracture or dislocation. Phleboliths. XR/XR hip LT w PEL1V IMPRESSION: Demineralization. Mild anterolisthesis L5 on S1. Mild bilateral hip joint narrowings. No acute bony pathology lumbar spine, pelvis and left hip.
[2023-09-02 11:42] VITALS: BP 140/90; PULSE 60; O2SAT 97
--- NOTE | 2023-09-02 11:43 | ED.FALL ---
HPI - Fall General Chief Complaint: Fall Stated Complaint: FALL LOWER BACK PAIN Time Seen by Provider: 09/02/23 11:43 Source: patient Mode of arrival: EMS Limitations: no limitations History of Present Illness HPI Narrative: Patient is a 68-year-old female who presents emergency department via EMS reports while checking out at the grocery store she reports her foot got caught on the carriage and she had lost her balance resulting in a fall landing onto her buttock. Denies any head strike or loss of consciousness. Denies use of anticoagulants or known coagulation disorders. Is experiencing pain to the lower back. reporting pain to the left buttock in the proximal thigh. She was able to stand after the fall with assistance from individuals in the store, but was not able to ambulate afterwards due to the pain. She reports pain is somewhat improved since arriving to the hospital, though she has not moving the extremity. Declines interest in acetaminophen or pain management at this time. Related Data Home Medications ?Medication ?Instructions ?Recorded ?Confirmed alendronate 70 mg tablet 70 mg PO QWEEK 04/15/20 12/19/20 atorvastatin 20 mg tablet 20 mg PO BEDTIME 04/15/20 12/19/20 losartan 50 mg tablet 50 mg PO DAILY 09/23/20 12/19/20 omeprazole 20 mg capsule,delayed 20 mg PO DAILY 12/19/20 12/19/20 release propranolol 160 mg capsule,24 160 mg PO DAILY 11/17/21 hr,extended release loratadine 10 mg tablet 10 mg PO DAILY 12/24/22 Previous Rx's ?Medication ?Instructions ?Recorded pyridoxine (vitamin B6) 100 mg 100 mg PO DAILY 90 days #90 tabs 12/24/22 tablet Allergies Allergy/AdvReac Type Severity Reaction Status Date / Time aspirin AdvReac Unknown has an Uncoded 09/02/23 11:49 ulcer naproxen AdvReac Unknown ulcer Uncoded 09/02/23 11:49 Review of Systems Review of Systems: Yes all other systems are reviewed and are negative PMFSH Past Medical History Attestation statement: The following information was validated with the patient. Source: old records reviewed Medical History Hx of gastric ulcer COVID-19 vaccine series completed Osteoporosis Benign tumor of kidney Hypertension Surgical History S/P ear surgery History of tonsillectomy and adenoidectomy Hx of colonoscopy Hx of left cataract extraction [place] teeth extracted Social History Social History Are you a primary career education teacher to a significant other at home: No Do you presently have visiting nurse or other home services: No Patient Tobacco Use Status: Never used Tobacco Advance Directives: No Advance Directives Information Provided: Yes Current occupational status: retired Current occupation: Left Handed Physical Exam Vital Signs: Vital Signs: Last Vital Signs Temp 97.8 F 09/02/23 11:48 Pulse 55 09/02/23 11:48 Resp 18 09/02/23 11:48 BP 172/78 H 09/02/23 11:48 Pulse Ox 98 09/02/23 11:48 O2 Del Method Room Air 09/02/23 11:48 BMI result Body Mass Index 20.1 Appearance: Alert.?Oriented to person, place and time. No acute distress.?Normal affect. Eyes: Pupils equal, round and reactive to light.? ENT: Pharynx normal.?? Neck: Normal inspection.? Neck supple.?? CVS: Heart sounds normal. Normal heart rate and rhythm.? Pulses normal.?? Respiratory: No respiratory distress.? Lung sounds clear to auscultation bilaterally?? Abdomen: Soft and non-tender. Normoactive bowel sounds. Skin: Skin warm and dry.? Normal skin color.? Back: no midline lumbar spine tenderness, step-offs, deformities. Extremities: No lower extremity edema.? No calf ttp. Shortening of the left lower extremity, no rotation. 2+ DP /PT pulse bilaterally. Neuro: Moves all extremities spontaneously. Sensation intact bilaterally. CN II-XII intact. No focal neuro deficits. Medical Decision Making Medical Decision Making MDM Narrative: Patient is a 68-year-old female with past medical history of nephrolithiasis, angiomyolipoma of the kidney, osteoporosis, hypertension, GERD who presents emergency department for evaluation after mechanical fall with pain to the left buttock and proximal thigh. Overall she is well-appearing. she has no focal neurological deficits there was no head strike, clinically have lower suspicion for ICH, SDH, would defer CT imaging of the head at this time. Does have mild shortening of the left lower extremity, pain with passive range of motion to the left hip. XR was obtained to evaluate for fracture /dislocation is without evidence of acute fracture / dislocation, mild anterolisthesis L5-S1. She has been ambulatory with steady gait. At this time feel that she is stable for discharge home, advised rest, ice, use acetaminophen for pain management and outpatient follow-up with her primary care provider. Discussed worrisome signs and symptoms that would need re-evaluation in the emergency department. All questions answered. Differential Diagnosis Differential Diagnoses: The differential diagnosis associated with the presentation includes ( Fracture, dislocation, contusion, mechanical fall) Admission/Observation Consideration of admission/observation: Escalation of care including admission/observation considered ( see narrative above and course narrative for further detail) Independent Interpretation I performed an independent interpretation of an: Plain X-Ray ( No acute fracture) Radiology Impression Discussion of test interpretation with radiology: I have reviewed the radiologist's reading. Radiologist Impression: XR/XR lumbar spine 2-3V IMPRESSION: Demineralization. Mild anterolisthesis L5 on S1. Mild bilateral hip joint narrowings. No acute bony pathology lumbar spine, pelvis and left hip. Independent Historian Clinical information obtained from an independent historian. History obtained from or confirmed by: EMS External Record Review External record reviewed: Outpatient record Tests considered The following testing was considered but not selected: see narrative above for further detail Prescription Management I considered prescription management with: Pain Medication ( acetaminophen) Discharge Plan Discharge Clinical Impression: Contusion of hip, Fall Patient Disposition: Home, Self-Care Instructions: Hip Contusion (ED), Fall Prevention (ED) Additional Instructions: x-ray today does not show any evidence of fracture or dislocation. Please be sure to rest over the next few days, apply ice to the area for 10-15 minutes 3-4 times daily. You can take Tylenol 500 mg, 2 tablets (1,000mg) every 4-6 hours as needed for pain, but not to exceed 3 doses daily (3,000mg). You may return back to emergency department any new or worsening symptoms or concerns. Please contact your primary care provider to arrange for outpatient follow-up as needed.? Prescriptions: No Action omeprazole 20 mg Capsule,Delayed Release(Dr/Ec) 20 mg PO DAILY losartan 50 mg tablet 50 mg PO DAILY alendronate 70 mg tablet 70 mg PO QWEEK atorvastatin 20 mg tablet 20 mg PO BEDTIME propranolol 160 mg capsule,extended release 24 hr 160 mg PO DAILY loratadine 10 mg tablet 10 mg PO DAILY pyridoxine (vitamin B6) 100 mg tablet 100 mg PO DAILY 90 Days Qty: 90 3RF Referrals: Esa Fontanez MD [Primary Care Provider] - Print Language: Ukrainian
[2023-09-02 11:45] VITALS: BP 172/78; PULSE 55; RESP 17; TEMP 36.4; O2SAT 97
[2023-09-02 11:48] VITALS: BP 172/78; PULSE 55; RESP 18; TEMP 36.6; O2SAT 98; BMI 20.1
[2023-09-02 14:04] VITALS: BP 172/78; PULSE 55; RESP 18; TEMP 36.6; O2SAT 98
== END 2023-09-02 14:04 | disposition home or self-care (01) ==
PROVIDERS: Emergency Provider Emergency Medicine; PCP Internal Medicine
DX: S70.02XA Contusion of left hip, initial encounter (principal); M54.50 Low back pain, unspecified; I10 Essential (primary) hypertension; W18.30XA Fall on same level, unspecified, initial encounter; Y93.9 Activity, unspecified; Y92.512 Supermarket, store or market as the place of occurrence of the external cause; Y99.9 Unspecified external cause status
CPT/HCPCS: 72100; 73502; 99283; 99284

== ENCOUNTER 2023-12-15 10:38 | Outpatient (REF) | payer MEDICARE, OTHER, SELFPAY ==
--- NOTE | ~2023-12-15 | US_ITS ---
EXAMINATION: US RETROPERITONEAL LIMITED (RENAL ONLY) CLINICAL INFORMATION: Calculus of kidney. COMPARISON: Renal ultrasound 08/23/2022 and 09/23/2021. CT abdomen and pelvis 01/07/2015. TECHNIQUE: Real-time imaging of the kidneys. Limited visualization due to bowel gas. FINDINGS: RIGHT KIDNEY: 8.4 x 3.3 x 4.8 cm (SAG x AP x TRV). Increased renal echogenicity. Multiple tiny renal echogenic foci may represent vascular calcifications, artifact or tiny nonobstructive renal calculi. No hydronephrosis. 0.3 cm midpole calculus. 2.5 x 2.2 x 1.5 cm echogenic mass lower pole right kidney, previously 2.0 x 1.7 x 1.7 cm on ultrasound of 09/23/2021 and 2.1 x 1.8 x [address] scan of 01/07/2015 when it was previously felt to represent an angiomyolipoma. LEFT KIDNEY: 11.0 x 4.5 x 5.8 cm (SAG x AP x TRV). Increased renal echogenicity. Multiple tiny renal echogenic foci may represent vascular calcifications, artifact or tiny nonobstructive renal calculi. No hydronephrosis. Limited visualization. US/US renal BI IMPRESSION: 1. Redemonstration of a 2.5 cm echogenic mass lower pole right kidney, previously 2.0 cm on ultrasound of 09/23/[address]21 and [address] scan of 01/07/2015 when it was previously felt to represent an angiomyolipoma. 3. A 0.3 cm midpole calculus. Multiple tiny bilateral renal echogenic foci may represent vascular calcifications, artifact or tiny nonobstructive renal calculi. No hydronephrosis.
== END 2023-12-15 10:39 | disposition home or self-care (01) ==
LOC: HO.HMGCX 10:38
PROVIDERS: PCP Internal Medicine; Visit Provider Nurse Practitioner Family
DX: N20.0 Calculus of kidney (principal); D17.71 Benign lipomatous neoplasm of kidney
CPT/HCPCS: 76775

== ENCOUNTER 2024-01-03 10:17 | Outpatient (REF) | payer MEDICARE, OTHER, SELFPAY ==
--- NOTE | ~2024-01-03 | MM_ITS ---
EXAMINATION: MM SCREENING DIGITAL BREAST TOMOSYNTHESIS, BILATERAL CLINICAL INFORMATION: Screening. Asymptomatic. COMPARISON: Mammography: This study is compared with prior exams dating back to 2019. TECHNIQUE: Digital breast tomosynthesis is performed in both the craniocaudal and mediolateral oblique views along with computer-aided detection (CAD). Synthesized 2D images are generated from the tomosynthesis. FINDINGS: The breasts are heterogeneously dense, which may obscure small masses (ACR BI-RADS breast composition Category c). There are no significant masses, abnormal calcifications, or other abnormalities. Scattered, benign calcifications are present throughout the left breast. MM/MM tomosynthesis screening BI IMPRESSION: No mammographic evidence of malignancy. ASSESSMENT: BI-RADS BI-RADS 2 - Benign Findings RECOMMENDATION: Routine annual mammography screening. 1 year F/U This examination should not preclude the clinical evaluation of a suspicious palpable abnormality. This patient's information was entered into a reminder system with a target due date for their next mammogram. Electronically signed by: Caitlyn Betts MD 01/31/2024 12:18 PM EDT
== END 2024-01-03 10:18 | disposition home or self-care (01) ==
LOC: HO.MAMMO 10:17
PROVIDERS: PCP Internal Medicine; Visit Provider Internal Medicine
DX: Z12.31 Encounter for screening mammogram for malignant neoplasm of breast (principal)
CPT/HCPCS: 77063; 77067

== ENCOUNTER → 2024-01-03 10:30 | Outpatient (BNV) | payer MEDICARE, OTHER, SELFPAY | PROVIDERS: PCP Internal Medicine; Visit Provider Radiology Diagnostic Radiology | DX: Z12.31 Encounter for screening mammogram for malignant neoplasm of breast (principal) | CPT/HCPCS: 77063; 77067 ==

== ENCOUNTER 2024-01-09 16:01 | Outpatient (AMB) | payer MEDICARE, OTHER, SELFPAY ==
--- NOTE | 2024-01-09 16:05 | A.OFFVIS_ITS ---
Intake Visit Reasons: f/u Intake Note: Patient presents today for tele visit follow up on: angiomyolipoma, nephrol ithiasis, renal cyst, and ultrasound results Imaging Completed: 12/15/23 Urology Medication: Vitamin B6 Blood Thinner: None Clay Press Operator Required: No Accompanied by: Self / Same As Patient Allergies aspirin Adverse Reaction (Unknown, Uncoded 01/09/24 16:11) has an ulcer naproxen Adverse Reaction (Unknown, Uncoded 01/09/24 16:11) ulcer Medication List - Last Reconciled 01/09/24 by LESIA Danielle alendronate 70 mg PO QWEEK atorvastatin 20 mg PO BEDTIME loratadine 10 mg PO DAILY losartan 50 mg PO DAILY omeprazole 20 mg PO DAILY primidone 50 mg PO BEDTIME propranolol ER 160 mg PO DAILY pyridoxine (vitamin B6) 100 mg PO DAILY 90 days HPI Comments Details: Zoe is a very pleasant 68-year-old female patient of Dr. Fontanez. She has a past medical history of gastric ulcer, hypertension, and osteoporosis. She is being follow-up on today via telehealth for her angiolipoma and nephrolithiasis. In discussion with the patient today she reports to be doing and feeling well. She reports no bothersome urinary issues or concerns since her last office visit here approximately 1 year ago. Recent renal imaging results reviewed with the patient today. Redemonstration of 2.5 cm echogenic mass lower pole right kidney previously 2.0 cm on ultrasound 10/04 and 2.[address] scan of 12/28 when it previously felt to represent an angiolipoma. 3 mm mid pole calculus. Bilateral kidneys with no hydronephrosis. Patient denies any urinary issues or concerns at this time. When asked she denies urinary urgency, urinary frequency, incontinence, nocturia, hematuria, dysuria, foul smelling urine, changes to urinary stream, flank pain, fever, and or chills. She is happy with her current voiding parameters. She reports compliance with vitamin B6 daily as prescribed. She otherwise offers no issues or concerns. [facility] Medical History Hx of gastric ulcer COVID-19 vaccine series completed Osteoporosis Benign tumor of kidney Hypertension Surgical History S/P ear surgery History of tonsillectomy and adenoidectomy Hx of colonoscopy Hx of left cataract extraction [place] teeth extracted Social History Are you a primary direct care staffer to a significant other at home: No Do you presently have visiting nurse or other home services: No Patient Tobacco Use Status: Never used Tobacco Current occupational status: retired Current occupation: Left Handed Review of Systems Eyes Reports no additional complaints ENT Reports no additional complaints Card Reports as per HPI Resp Reports no additional complaints GI Reports no additional complaints Reports as per HPI Musc Reports as per HPI Neuro Reports no additional complaints Psych Reports no additional complaints Endo Reports no additional complaints Physical Exam Const General: cooperative Resp Effort & Inspection: able to speak in complete sentences Psych Speech and movement: Clear speech present Attitude: cooperative Thought process: Normal thought process present Thought content: Normal thought content present Insight: Fair insight present (Psych) Judgement: Fair judgement present (Psych) Telehealth Telehealth Telehealth Platform: RETC Location of provider rendering services: practice address Location of patient: address on file Patient Identification confirmed using: Name, : Yes Telehealth method: voice only Patient verbally consented to treatment: Yes Patient verbally consented to billing insurance company: Yes Patient informed of any privacy concerns related to visit: Yes Minutes spent on Phone/Video with Pt.: 15 Results Reviewed Results Reviewed: Date of Service: 12/15/23 EXAMINATION: US RETROPERITONEAL LIMITED (RENAL ONLY) FINDINGS: RIGHT KIDNEY: 8.4 x 3.3 x 4.8 cm (SAG x AP x TRV). Increased renal echogenicity. Multiple tiny renal echogenic foci may represent vascular calcifications, artifact or tiny nonobstructive renal calculi. No hydronephrosis. 0.3 cm midpole calculus. 2.5 x 2.2 x 1.5 cm echogenic mass lower pole right kidney, previously 2.0 x 1.7 x 1.7 cm on ultrasound of 09/23/2021 and 2.1 x 1.8 x [address] scan of 01/07/2015 when it was previously felt to represent an angiomyolipoma. LEFT KIDNEY: 11.0 x 4.5 x 5.8 cm (SAG x AP x TRV). Increased renal echogenicity. Multiple tiny renal echogenic foci may represent vascular calcifications, artifact or tiny nonobstructive renal calculi. No hydronephrosis. Limited visualization. IMPRESSION: 1. Redemonstration of a 2.5 cm echogenic mass lower pole right kidney, previously 2.0 cm on ultrasound of 09/23/2021 and [address] scan of 01/07/2015 when it was previously felt to represent an angiomyolipoma. 3. A 0.3 cm midpole calculus. Multiple tiny bilateral renal echogenic foci may represent vascular calcifications, artifact or tiny nonobstructive renal calculi. No hydronephrosis. Assessment & Plan Assessment & Plan (1) Renal cyst: Code(s): N28.1 - Cyst of kidney, acquired Category: Medical (2) Nephrolithiasis: Code(s): N20.0 - Calculus of kidney Category: Medical (3) Angiomyolipoma of kidney: Code(s): D17.71 - Benign lipomatous neoplasm of kidney Category: Medical Plan Recent renal imaging results reviewed with the patient today; as noted above. Discussed at length potential causes of angiolipoma and nephrolithiasis. Continue vitamin B6 as discussed and prescribed; refill provided Continue adding 1 oz of lemon juice to water daily. Patient currently denies any bothersome urinary issues or concerns. She reports be happy with current voiding parameters. Discussed surveillance monitoring of nephrolithiasis as well as angiolipoma. Will obtain MRI for further assessment evaluation Follow-up in 6 months with imaging to be completed prior; or sooner with any issues, concerns, and or questions. Patient Instructions: The patient had an opportunity to ask questions regarding the treatment plan. All questions were answered. Physical exam, labs, and imaging were discussed and reviewed in detail. As well as risks, benefits, and discussion of treatment choices. No major barriers to understanding were identified. The patient expressed understanding and agreement with the above treatment plan. The patient was made aware they should contact our office by phone for worsening of their current condition, the appearance of new symptoms, or with any questions or concerns. Compliance is encouraged with any medications and follow up testing that is ordered. It is a privilege to be allowed the opportunity to participate in? your urological care.? Again, if you have any questions or concerns If you have any questions or concerns please do not hesitate to contact me. The office is [phone]. This note is constructed using voice recognition software. While every effort has been made to ensure accuracy logistics system engineer errors may have been included. Yours sincerely, EDNA Danielle-PARTH Coding Level of Care Code Tele Est Pt Level 3 (28572) Diagnoses Renal cyst N28.1 Nephrolithiasis N20.0 Angiomyolipoma of kidney D17.71
== END 2024-01-09 16:40 | disposition home or self-care (01) ==
LOC: HO.HUSH 16:01
PROVIDERS: PCP Internal Medicine; Visit Provider Nurse Practitioner Family
DX: N28.1 Cyst of kidney, acquired (principal); N20.0 Calculus of kidney; D17.71 Benign lipomatous neoplasm of kidney
CPT/HCPCS: 99213

== ENCOUNTER → 2024-01-09 16:01 | Outpatient (BNVA) | payer MEDICARE, OTHER, SELFPAY | PROVIDERS: PCP Internal Medicine; Visit Provider Nurse Practitioner Family ==

== ENCOUNTER → 2024-07-21 15:20 | Outpatient (BNV) | payer MEDICARE, OTHER, SELFPAY | PROVIDERS: PCP Internal Medicine; Visit Provider Radiology Diagnostic Radiology | DX: D17.71 Benign lipomatous neoplasm of kidney (principal) | CPT/HCPCS: 74183 ==

== ENCOUNTER 2024-07-21 15:24 | Outpatient (REF) | payer MEDICARE, OTHER, SELFPAY ==
--- NOTE | ~2024-07-21 | MR_ITS ---
EXAMINATION: MRI Abdomen without and with contrast HISTORY: h/o angiolipoma COMPARISON: Correlation is made with a renal ultrasound dated 12/15/[address] of the abdomen dated 01/01/2013. TECHNIQUE: Axial in and out of phase T1-weighted gradient echo, axial diffusion weighted, and axial and coronal HASTE T2 with fat saturation images were obtained through the abdomen. Subsequently, fat suppressed axial and coronal T1-weighted images were obtained after the intravenous administration of 5.5 mL Gadavist. FINDINGS: The examination is somewhat limited by patient motion. There is a 2.0 x 1.2 x 1.7 cm mass at the anterior aspect of the interpolar region of the right kidney. The mass is hypointense on T2-weighted images and mildly hyperintense on T1 weighted images. There is suppression of signal intensity on fat suppressed images. Multiple septations are noted. No definite enhancement is seen. Findings are consistent with an angiomyolipoma. There is right renal scarring. Multiple small left renal cysts are noted. There is no significant loss of signal intensity within the liver on opposed phase imaging to suggest steatosis. There is no enhancing liver mass. The hepatic and portal veins are patent. There is no intra or extrahepatic biliary ductal dilatation. The gallbladder, spleen, pancreas, and adrenals are unremarkable. 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 Electronically signed by: Fareed Jhaveri MD 07/23/2024 01:25 PM EDT
--- OUTSIDE RECORDS SUMMARY | 2024-07-21 15:27 | XMS_ITS ---
Author Organization [facility] Address [address] [place] [address] Care Team Providers Care Mate Chief Name Role Phone Esa Fontanez MD Primary Care Provider Unavailab rose mary Guzman Jr, Alejandro Ruiz [phone] REASON FOR VISIT ov appt Encounters Encounter Location Date Provider Diagnosis [facility] [address] [place] [address] 06/05/2024 Alejandro Guzman Jr Plan Of Treatment Next Appt Details Provider Name:Alejandro rosado Jr, 08/31/2024 10:20:00 AM, [address], [address], [place], [address], Progress Notes * NYDIA CARSON ADOB:[birth year] (68 yo F)Acc No.[id number]:06/05/2024 Patient:?NYDIA CARSON :1955???Age:68 Y???Sex:Female Address:[address] [place], [address] * true * Date:? Generated for Printi ng/Faxing/eTransmitting on:?07/21/2024 03:26 PM EST
--- OUTSIDE RECORDS SUMMARY | 2024-07-21 15:27 | XMS_ITS ---
Author Organization [facility] Address [address] [place] [address] Care Team Providers Care Scene Shifter Name Role Phone Esa Fontanez MD Primary Care Provider Unavailab rose mary Guzman Jr, Alejandro Ruiz [phone] REASON FOR VISIT ov recall Encounters Encounter Location Date Provider Diagnosis [facility] [address] [facility] [address] [place] [address] 03/31/2023 Alejandro Guzman Jr Plan Of Treatment Next Appt Details Provider Name:Alejandro rosado Jr, 08/31/2024 10:20:00 AM, [address] [facility], [address], [place], [address], Progress Notes * NYDIA CARSON ADOB:[birth year] (67 yo F)Acc No.[id number]:03/31/2023 Patient:?NYDIA CARSON :1955???Age:67 Y???Sex:Female Address:[address] [place], [address] * true * Date:? Generated for Printi ng/Fatyrelg/eTransmitting on:?07/21/2024 03:26 PM EST
--- OUTSIDE RECORDS SUMMARY | 2024-07-21 15:27 | XMS_ITS | Patient Health Record ---
Author Organization [facility] Address [address] [place] [address] Care Team Providers Care Mobile Home Laborer Name Role Phone Esa Fontanez MD Primary Care Provider UnavailDonya Donaldson Unavailable [phone] Allergies Allergen (clinical drug ingredient) Drug/Non Drug Allergy documented on EMR Reaction Allergy Type Onset Date Status Aspirin bleeding ulcer Drug Allergy Ac tive Reason For Referral No Information Medications Medication SIG (Take, Route, Frequency, Duration) Notes Start Date End Date Status Sucralfate 1 GM (Prior Auth: Rx Ref#:[id number]) Oral for 30 Not-Taking Atorvastatin Calcium 20 MG (Prior Auth: Rx Ref#:[id number]) Oral for 30 Active Losartan Potassium 50 MG 1 tablet Orally Once a day Active Propranolol HCl ER 120 MG Orally Not-Taking Valsartan 40 MG (Prior Auth: Rx Ref#:[id number]) Oral for 30 Not-Taking Dicyclomine HCl 10 MG (Prior Auth: Rx Ref#:[id number]) Oral for 20 Not-Taking Loratadine 10 MG as directed A ctive Omeprazole 40 MG (Prior Auth: Rx Ref#:[id number]) Oral for 30 Active Alendronate Sodium 70 MG (Prior Auth: Rx Ref#:[id number]) Oral for 28 Active Cyanocobalamin 1000 MCG/ML (Prior Auth: Rx Ref#:[id number]) Injection for 30 Not-Taking Metoprolol Tartrate 25 MG (Prior Auth: R x Ref#:[id number]) Oral for 30 Not-Taking Immunizations Vaccine Route Administration Date Status Comme nts COVID-19 Pfizer BioNTech Vaccine Unknown 07/22/2020 Administered Second Dose: 08/12/2020 Social History Tobacco Use: Social History Observation Description Date Details (start date - stop date) Never Smoker NA - NA Tobacco Use/Smoking Question Answer Notes Are you a: nonsmoker Additional Findings: Tobacco Non-User Current no n-smoker Alcohol Screen Question Answer Notes Did you have a drink contain ing alcohol in the past year? Yes How often did you have a dri nk containing alcohol in the past year? Monthly or less (1 point) Points 1 Interpretation Negative Tobacco use other than smoking: Question Answer Notes Are you an other tobacco user? No Problems Problem Type SNOMED Code ICD Code Onset Dates Problem Status W/U Status Risk Notes Problem Plantar wart (09035411) Plantar wart (B07.0) Active confirmed Plan Of Treatment Pending Test Test Name Order Date [id number] NAIL, -07/15/2015 [id number] NAIL, -11/20/2015 [id number] NAIL, -04/19/2017 [id number] Destruction, -04/19/2017 Insurance Providers Payer Name Payer Address Payer Phone Subscriber Number Group Number Insured Name Patient Relationship to Insured Coverage Start Date Coverage End Date Medicare National Govt [facility] [address] [place] [phone] [id number] Zoe [place] Self - patient is the insured [employer] Medicare Supplemen t [address] [place] [phone] [id number] Zoe [place] Self - patient is the insured Medical (General) History Medical History History ICD Code Anxiety Cholesterol High blood pressure keloids Osteoporosis Reflux Stomach ulcer Measles Mumps Chicken pox Transfusions Surgical History Surgery Date(Month/Year) cataract surgery 2007 tonsillectomy 1963 teeth extraction 1965 wisdom teeth extraction 1972 ear surgery 1963 kidney surgery 2008 Cataract surgery 2020
--- OUTSIDE RECORDS SUMMARY | 2024-07-21 15:27 | XMS_ITS | Patient Health Record ---
Author Organization [facility] Address [address] [place] [address] Care Team Providers Care Rake Operator Name Role Phone Esa Fontanez MD Primary Care Provider UnavailAlejandro Choudhury Jr Unavailable Allergies Allergen (clinical drug ingredient) Drug/Non Drug Allergy documented on EMR Reaction Allergy Type Onset Date Status aspirin Aspirin Unknown Drug Allergy Active Non-steroidal anti-inflammatory agent (FN) NDAIDS (uncoded) Unknown Allergy Active Reason For Referral No Information Medications Medication SIG (Take, Route, Frequency, Duration) Notes Start Date End Date Status Omeprazole 20 MG 1 capsule Orally Onc e a day for 30 day(s) 10/28/2016 Active Losartan Potassium 50 MG 1/2 tablet Oral ly Once a day Active Atorvastatin Calcium 20 MG 1 tablet Oral ly Once a day Active Alendronate Sodium 40 MG 1/2 tablet Oral ly once a week Active Omeprazole 20 MG 1 capsule 30 minutes before morning meal Orally Once a day for 30 day(s) Active Propranolol HCl 60 MG 1 tablet on an emp ty stomach Orally Once a day Active Vitamin B-6 25 MG TAKE 1 TABLET BY JR TH EVERY DAY Oral for 90 Active Immunizations Vaccine Route Administration Date Status Comme nts Influenza Unknown 01/14/2019 Administered Influenza Unknown 05/16/2020 Administered Influenza Unknown 03/29/2018 Refused Problems Problem Type SNOMED Code ICD Code Onset Dates Problem Status W/U Status Risk Notes Problem 359485241 Colon cancer screening (Z12.11) Active confirmed Problem 403689708 Right upper quad rant pain (R10.11) Active confirmed Problem Fatigue (78688354) Other fatigue (R53.83) Active confirmed Problem 722811365 Gastroesophageal reflux disease without esophagitis (K21.9) Active confirmed Problem 05720082 Duodenal ulcer w ith hemorrhage (K26.4) Active confirmed Problem 54063429 Peptic ulcer dis ease (K27.9) Active confirmed Encounters Encounter Location Date Provider Diagnosis [facility] [address] [place] [address] 06/05/2024 Alejandro Guzman Jr Plan Of Treatment Future Test Test Name Order Date COLONOSCOPY 05/03/2019 Next Appt Details Provider Name:Alejandro rosado Jr, 08/31/2024 10:20:00 AM, [address], [address], [place], [address], Insurance Providers Payer Name Payer Address Payer Phone Subscriber Number Group Number Insured Name Patient Relationship to Insured Coverage Start Date Coverage End Date MEDICARE OF [place] [address] [place] [address] [id number] NYDIA CARSON Self - patient is the insured [facility] [address] [place] [address] [id number] NYDIA CARSON Self - patient is the insured Medical (General) History Medical History History ICD Code hypertension hyperlipidemia osteoporosis renal lesion treated with embolization colonoscopy for screening 07/05 normal, t en-year followup right shoulder adhesive capsulitis urinary incontinence 2022 kidney stone Surgical History Surgery Date(Month/Year) right ear surgery 1963 oral surgery 1964/1971 kidney surgery [id number]
[2024-07-21] MEDS: gadobutroL 7.5 ML VIAL IVPUSH (15:56)
== END 2024-07-21 15:25 | disposition home or self-care (01) ==
LOC: HO.MRI 15:24
PROVIDERS: PCP Internal Medicine; Visit Provider Nurse Practitioner Family
DX: N28.89 Other specified disorders of kidney and ureter (principal)
CPT/HCPCS: 74183; A9585

== ENCOUNTER 2024-07-31 13:18 | Outpatient (AMB) | payer MEDICARE, OTHER, SELFPAY ==
--- NOTE | 2024-07-31 13:39 | MHC.OFFVIS ---
Intake Visit Reasons: 6M w/ MRI(set) Intake Note: Patient presents to office today for 6 month follow up/MRI Urology Medication: Vitamin B6 Blood Thinner: None Violin Mechanic Required: No Accompanied by: Self / Same As Patient Allergies aspirin Adverse Reaction (Unknown, Uncoded 01/09/24 16:11) has an ulcer naproxen Adverse Reaction (Unknown, Uncoded 01/09/24 16:11) ulcer Medication List - Last Reconciled 07/31/24 by EDNA Danielle- alendronate 70 mg PO QWEEK atorvastatin 20 mg PO BEDTIME loratadine 10 mg PO DAILY losartan 50 mg PO DAILY omeprazole 20 mg PO DAILY primidone 50 mg PO BEDTIME propranolol ER 160 mg PO DAILY pyridoxine (vitamin B6) 100 mg PO DAILY 90 days HPI Comments Details: Zoe is a very pleasant 68-year-old female patient of Dr. Fontanez. She has a past medical history of gastric ulcer, hypertension, and osteoporosis. She presents to the office today for follow-up of her angiolipoma and nephrolithiasis. In discussion with the patient today she reports having recently followed up with her PCP at which time urinalysis noted potential urinary tract infection and she is currently on Bactrim full strength b.i.d. for 10 days. She reports typical UTI like symptoms in the past have been dysuria however she did not feel she had any UTI like symptoms. In office urinalysis today negative leukocytes negative nitrates however patient was currently on antibiotic therapy. Recent MRI imaging results reviewed with the patient today 08/07 findings are consistent with angiolipoma. There is right renal scarring. Multiple small left renal cysts are noted. She currently denies any urinary issues or concerns again however is currently on antibiotic therapy. She denies urinary urgency, urinary frequency, incontinence, nocturia, hematuria, dysuria, foul smelling urine, changes to urinary stream, flank pain, fever, and or chills. She is happy with her current voiding parameters. She reports compliance with vitamin B6 daily as prescribed. She reports her upcoming [place] with [facility] [place] as she transitions with new care as her PCP is retiring. She otherwise offers no issues or concerns. Plan The current management plan involves completing the prescribed Bactrim course for the urinary tract infection. Preventive measures discussed include adequate water intake and maintaining hygienic practices. The renal angiomyolipoma remains stable and will be monitored with periodic imaging. A three-month follow-up is planned to reassess the UTI treatment efficacy. The patient understands the importance of reaching out should symptoms recur before the next scheduled visit. Patient was informed and verbally consented to the use of an ambient scribe for clinic note documentation during this visit. [facility] Medical History Hx of gastric ulcer COVID-19 vaccine series completed Osteoporosis Benign tumor of kidney Hypertension Surgical History S/P ear surgery History of tonsillectomy and adenoidectomy Hx of colonoscopy Hx of left cataract extraction Rangely teeth extracted Social History Are you a primary critical care technician to a significant other at home: No Do you presently have visiting nurse or other home services: No Patient Tobacco Use Status: Never used Tobacco Current occupational status: retired Current occupation: Left Handed Review of Systems Eyes Reports no additional complaints ENT Reports no additional complaints Card Reports as per HPI Resp Reports no additional complaints GI Reports no additional complaints Reports as per HPI Musc Reports as per HPI Neuro Reports no additional complaints Psych Reports no additional complaints Endo Reports no additional complaints Physical Exam Const General: cooperative, healthy appearing, comfortable, no acute distress, well developed, alert and awake Nutritional Appearance: thin Orientation/consciousness: patient oriented x3 Limitations: no limitations HEENT Head: Yes normal to inspection, Yes normocephalic and Yes atraumatic Ears: hearing grossly normal bilaterally Eyes General: appearance normal, both eyes and all related structures Neck Neck: Yes normal visual inspection and Yes trachea midline Chest Chest palpation & inspection: normal inspection of the chest Resp Effort & Inspection: normal respiratory effort and able to speak in complete sentences Cardio Rate: regular rate GI Inspection: Yes normal to inspection General: Yes no CVA tenderness Back/Spine/Pelvis Back: no CVA tenderness Skin General skin exam: no rashes or lesions noted Neuro General: patient oriented x3 Extrem General: Yes normal to inspection Psych Appearance: grossly normal and well kempt Mental Status: mental status grossly normal Speech and movement: Normal speech and movement present and Clear speech present Affect: normal affect Attitude: cooperative Thought process: Normal thought process present Thought content: Normal thought content present Insight: Fair insight present (Psych) Judgement: Fair judgement present (Psych) Results Reviewed Results Reviewed: Date of Service: 07/21/24 Procedure(s): MR abdomen wo/w con FINDINGS: The examination is somewhat limited by patient motion. There is a 2.0 x 1.2 x 1.7 cm mass at the anterior aspect of the interpolar region of the right kidney. The mass is hypointense on T2-weighted images and mildly hyperintense on T1 weighted images. There is suppression of signal intensity on fat suppressed images. Multiple septations are noted. No definite enhancement is seen. Findings are consistent with an angiomyolipoma. There is right renal scarring. Multiple small left renal cysts are noted. There is no significant loss of signal intensity within the liver on opposed phase imaging to suggest steatosis. There is no enhancing liver mass. The hepatic and portal veins are patent. There is no intra or extrahepatic biliary ductal dilatation. The gallbladder, spleen, pancreas, and adrenals are unremarkable. 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 Assessment & Plan Assessment & Plan (1) Angiomyolipoma of kidney: Code(s): D17.71 - Benign lipomatous neoplasm of kidney Category: Medical (2) Nephrolithiasis: Code(s): N20.0 - Calculus of kidney Category: Medical (3) Renal cyst: Code(s): N28.1 - Cyst of kidney, acquired Category: Medical (4) Urinary tract infection: Code(s): N39.0 - Urinary tract infection, site not specified Category: Medical Plan In office urinalysis results reviewed the patient today; as noted above. We discussed importance of completing antibiotic therapy as prescribed. Recent MRI imaging results reviewed with the patient today; as noted above. She currently denies any UTI like symptoms however is currently on treatment. We discussed preventative measures;Discussed UTI prevention with D mannose supplement, vitamin-C, increasing fluid intake, behavioral therapy with timed voiding, perineal hygiene and postcoital voiding, and management of constipation with stool softeners and increased fiber intake. She currently denies any bothersome urinary issues. Will continue with surveillance monitoring of angiolipoma as well as nephrolithiasis. Continue vitamin B6. Follow-up in 3 months with [facility]; or sooner with any issues, concerns, and or questions. Patient Instructions: The patient had an opportunity to ask questions regarding the treatment plan. All questions were answered. Physical exam, labs, and imaging were discussed and reviewed in detail. As well as risks, benefits, and discussion of treatment choices. No major barriers to understanding were identified. The patient expressed understanding and agreement with the above treatment plan. The patient was made aware they should contact our office by phone for worsening of their current condition, the appearance of new symptoms, or with any questions or concerns. Compliance is encouraged with any medications and follow up testing that is ordered. It is a privilege to be allowed the opportunity to participate in? your urological care.? Again, if you have any questions or concerns If you have any questions or concerns please do not hesitate to contact me. The office is [phone]. This note is constructed using voice recognition software. While every effort has been made to ensure accuracy separator inserter errors may have been included. Yours sincerely, LESIA Danielle Coding Level of Care Code Est Pt Level 3 (47795) Complex EM visit Add On G2211 Diagnoses Angiomyolipoma of kidney D17.71 Nephrolithiasis N20.0 Renal cyst N28.1 Urinary tract infection N39.0
--- OUTSIDE RECORDS SUMMARY | 2024-07-31 15:36 | XMS_ITS ---
Author Organization [facility] Address [address] [address] [place] [address] Care Team Providers Care Pomologist Name Role Phone Estee ANDREA, Esa Primary Care Provider Unavailab rose mary Guzman Jr, Alejandro Unavailable REASON FOR VISIT Patient presents today for a peptic ulcer disease Encounters Encounter Location Date Provider Diagnosis [facility] [address] [facility] [address] [place] [address] 06/06/2024 Alejandro Guzman Jr Plan Of Treatment Next Appt Details Provider Name:Alejandro rosado Jr, 08/31/2024 10:20:00 AM, [address] [facility], [address], [place], [address], Progress Notes * NYDIA CARSON ADOB:[birth year] (68 yo F)Acc No.[id number]:06/06/2024 Progress Notes Patient:?NYDIA CARSON Provider:?Alejandro Guzman MD :1955???Age:68 Y???Sex:Female D ate:06/06/2024 Address:[facility] [address], [id number] Pcp:Esa Fontanez MD Subjective: * Chief Complaints: * ???1. Patient presents today for a peptic ulcer disease. * Medical History:? Objective: * Vitals:? Assessment: Plan: * Treatment: * * The named appointment provid er may or may not be the originator of this progress note, and it is not deemed complete until electronically signed by the appointment provider. Sign off status: Pending * Provider:?Alejandro Guzman MD Date:?0 06/06/2024 Generated for Ousmane talavera/Thomas/Janneth on:?07/31/2024 03:36 PM EDT
--- OUTSIDE RECORDS SUMMARY | 2024-07-31 15:37 | XMS_ITS | Patient Health Record ---
Author Organization [facility] Address [address] [place] [address] Care Team Providers Care Upholstery Tech Name Role Phone Esa Fontanez MD Primary Care Provider UnavailDonya Donaldson Unavailable [phone] Allergies Allergen (clinical drug ingredient) Drug/Non Drug Allergy documented on EMR Reaction Allergy Type Onset Date Status aspirin Aspirin bleeding ulcer Drug Allergy Ac tive Reason For Referral No Information Medications Medication SIG (Take, Route, Frequency, Duration) Notes Start Date End Date Status Sucralfate 1 GM (Prior Auth: Rx Ref#:[id number]) Oral for 30 Not-Taking Atorvastatin Calcium 20 MG (Prior Auth: Rx Ref#:[id number]) Oral for 30 Active Losartan Potassium 50 MG 1 tablet Orally Once a day Active Propranolol HCl ER 120 MG Orally Not-Taking Valsartan 40 MG (Prior Auth: Rx Ref#:[id number]) Oral for 30 Not-Taking Dicyclomine HCl 10 MG (Prior Auth: Rx Ref#:[id number]) Oral for 20 Not-Taking Loratadine 10 MG as directed A ctive Omeprazole 40 MG (Prior Auth: Rx Ref#:[id number]) Oral for 30 Active Alendronate Sodium 70 MG (Prior Auth: Rx Ref#:[id number]) Oral for 28 Active Cyanocobalamin 1000 MCG/ML (Prior Auth: Rx Ref#:[id number]) Injection for 30 Not-Taking Metoprolol Tartrate 25 MG (Prior Auth: R x Ref#:[id number]) Oral for 30 Not-Taking Immunizations Vaccine Route [...] W/U Status Risk Notes Problem Plantar wart (54655046) Plantar wart (B07.0) Active confirmed Plan Of Treatment Pending Test Test Name Order Date [id number] NAIL, -07/15/2015 [id number] NAIL, -11/20/2015 [id number] NAIL, -04/19/2017 [id number] Destruction, -04/19/2017 Insurance Providers Payer Name Payer Address Payer Phone Subscriber Number Group Number Insured Name Patient Relationship to Insured Coverage Start Date Coverage End Date Medicare National Govt [facility] [address] [place] [phone] [id number] Zoe Stafford Self - patient is the insured [employer] Medicare Supplemen t [address] [place] [phone] [id number] Zoe Stafford Self - patient is the insured Medical (General) History Medical History History ICD Code Anxiety Cholesterol High blood pressure keloids Osteoporosis Reflux Stomach ulcer Measles Mumps Chicken pox Transfusions Surgical History Surgery Date(Month/Year) cataract surgery 2007 tonsillectomy 1963 teeth extraction 1965 wisdom teeth extraction 1972 ear surgery 1963 kidney surgery 2008 Cataract surgery 2020
--- OUTSIDE RECORDS SUMMARY | 2024-07-31 15:37 | XMS_ITS | Patient Health Record ---
Author Organization [facility] Address [address] [place] [address] Care Team Providers Care Synthetic Soil Blocks Pulper Name Role Phone Esa Fontanez MD Primary [...] Problem Status W/U Status Risk Notes Problem 315645810 Colon cancer screening (Z12.11) Active confirmed Problem 707062636 Right upper quad rant pain (R10.11) Active confirmed Problem Fatigue (46207551) Other fatigue (R53.83) Active confirmed Problem 288342417 Gastroesophageal reflux disease without esophagitis (K21.9) Active confirmed Problem 45239616 Duodenal ulcer w ith hemorrhage (K26.4) Active confirmed Problem 23485796 Peptic ulcer dis ease (K27.9) Active confirmed Encounters Encounter Location Date Provider Diagnosis [facility] [address] [place] [address] 06/05/2024 Alejandro Guzman Jr Plan Of Treatment Future Test Test Name Order Date COLONOSCOPY 05/03/2019 Next Appt Details Provider Name:Alejandro rosado Jr, 08/31/2024 10:20:00 AM, [address], [address], [place], [address], Insurance Providers Payer Name Payer Address Payer Phone Subscriber Number Group Number Insured Name Patient Relationship to Insured Coverage Start Date Coverage End Date MEDICARE OF [place] [address] [place] [address] [id number] NYDIA CARSON Self - patient is the insured [facility] [address] [place] [address] [id number] NYDIA CARSON Self - patient is the insured Medical (General) History Medical History History ICD Code hypertension hyperlipidemia osteoporosis renal lesion treated with embolization colonoscopy for screening 07/05 normal, t en-year followup right shoulder adhesive capsulitis urinary incontinence 2022 kidney stone Surgical History Surgery Date(Month/Year) right ear surgery 1963 oral surgery 1964/1971 kidney surgery [id number]
--- OUTSIDE RECORDS SUMMARY | 2024-07-31 15:37 | XMS_ITS ---
Author Organization [facility] Address [address] [facility] [address] [place] [address] Care Team Providers Care Equipment Hire Manager Name Role Phone Esa Fontanez MD Primary Care Provider Unavailab rose mary Guzman Jr, Alejandro Ruiz [phone] REASON FOR VISIT ov recall Encounters Encounter Location Date Provider Diagnosis [facility] [address] [facility] [address] [place] [address] 03/31/2023 Alejandro Guzman Jr Plan Of Treatment Next Appt Details Provider Name:Alejandro rosado Jr, 08/31/2024 10:20:00 AM, [address] [facility], [address], [place], [address], Progress Notes * NYDIA CARSON ADOB:[birth year] (67 yo F)Acc No.[id number]:03/31/2023 Patient:?NYDIA CARSON :1955???Age:67 Y???Sex:Female Address:[address], [place], [address] * true * Date:? Generated for Printi ng/Faxing/eTransmitting on:?07/31/2024 03:36 PM EDT
--- OUTSIDE RECORDS SUMMARY | 2024-07-31 15:37 | XMS_ITS ---
Author Organization [facility] Address [address] [place] [address] Care Team Providers Care Law Office Receptionist Name Role Phone Esa Fontanez MD Primary Care Provider Unavailab rose mary Guzman Jr, Alejandro Ruiz REASON FOR VISIT ov appt Encounters Encounter Location Date Provider Diagnosis [facility] [address] [facility] [address] [place] [address] 06/05/2024 Alejandro Guzman Jr Plan Of Treatment Next Appt Details Provider Name:Alejandro rosado Jr, 08/31/2024 10:20:00 AM, [address] [facility], [address], [place], [address], Progress Notes * NYDIA CARSON ADOB:[birth year] (68 yo F)Acc No.[id number]:06/05/2024 Patient:?NYDIA CARSON :1955???Age:68 Y???Sex:Female Address:[address], [place], [address] * true * Date:? Generated for Printi ng/Faxing/eTransmitting on:?07/31/2024 03:36 PM EDT
== END 2024-07-31 14:19 | disposition home or self-care (01) ==
LOC: HO.HUSH 13:19
PROVIDERS: PCP Internal Medicine; Visit Provider Nurse Practitioner Family
DX: D17.71 Benign lipomatous neoplasm of kidney (principal); N20.0 Calculus of kidney; N28.1 Cyst of kidney, acquired; N39.0 Urinary tract infection, site not specified; Z13.9 Encounter for screening, unspecified
CPT/HCPCS: 99213; G2211

== ENCOUNTER → 2024-07-31 13:18 | Outpatient (BNVA) | payer MEDICARE, OTHER, SELFPAY | PROVIDERS: PCP Internal Medicine; Visit Provider Nurse Practitioner Family | DX: N20.0 Calculus of kidney (principal); N28.1 Cyst of kidney, acquired; N39.0 Urinary tract infection, site not specified; D17.71 Benign lipomatous neoplasm of kidney | CPT/HCPCS: 81003; 99212 ==

== ENCOUNTER 2024-10-05 08:50 | Outpatient (REF) | payer MEDICARE, OTHER, SELFPAY ==
--- OUTSIDE RECORDS SUMMARY | 2024-10-05 09:11 | XMS_ITS ---
Author Organization [facility] Address [address] [facility] [address] [place] [address] Care Team Providers Care Vp Business Development Name Role Phone Estee ANDREA, Esa Primary Care Provider Unavailab rose mary Guzman Jr, Alejandro Unavailable REASON FOR VISIT Patient presents today for a peptic ulcer disease Encounters Encounter Location Date Provider Diagnosis [facility] [address] [facility] [address] [place] [address] 06/06/2024 Alejandro Guzman Jr Plan Of Treatment Next Appt Details Provider Name:Alejandro rosado Jr, 12/26/2024 10:20:00 AM, [address] [facility], [address], [place], [address], Progress Notes * NYDIA CARSON ADOB:[birth year] (69 yo F)Acc No.[id number]:06/06/2024 Progress Notes Patient:?NYDIA CARSON Provider:?Alejandro Guzman MD :1955???Age:68 Y???Sex:Female D ate:06/06/2024 Address:[facility] [address], [place] Pcp:Esa Fontanez MD Subjective: * Chief Complaints: [...] MD Date:?0 06/06/2024 Generated for Ousmane talavera/Thomas/Janneth on:?10/05/2024 09:11 AM EDT
--- NOTE | 2024-10-05 12:43 | MHC.AU.HA3 ---
Hearing Instrument Follow-Up- Binaural Date of Visit: 10/05/24 Right Ear: Make, Model, Color, Serial Number: Jessica CROS B-13 ITE Serial # [id number] Reel Cart Operator Repair Warranty: 04/17/2023 Reel Cart Operator Loss and Damage Warranty: 01/25/2021 [employer] Service Plan: 01/25/2023 Battery Size: 13 Supervisor Sterile Processing/Slim Tube: Earmold/Dome/CShell/SlimTip: Type of Wax Guard: CeruStop Dispensed By: [employer] Date of Fittin01/24/2020 Left Ear: Make, Model, Color, Serial Number: Jessica Virto B 50-13 Serial # [id number] Reel Cart Operator Repair Warranty: 03/26/2023 Reel Cart Operator Loss and Damage Warranty: 01/25/2023 [employer] Service Plan: 01/23/2023 Battery Size: 13 Supervisor Sterile Processing/Slim Tube: Earmold/Dome/CShell/SlimTip: Type of Wax Guard: CeruStop Dispensed By: [employer] Date of Fittin01/24/2020 Follow-Up Summary: Here for evaluation and hearing aid check- left shell broken and missing pieces. Called [facility] for quote as aid is still turning on, they staate will need standard repair plus recase fee, quoted patient $450. Discussed new hearing aids but patient is not interested at this time. New impression taken as shell is missing pieces. Patient requested loaner, programmed Bolero B90 for interim use, some difficulty with insertion but able to do independently in office. Will call when aid returns. Pt has right cros device. Recommendations: Recommendations: Patient will be contacted when materials have arrived. Diagnosis Code(s): Primary Diagnosis: H90.3 Bilateral Sensorineural Hearing Loss Signature: Provider: Jim Brooks, CCC-A
== END 2024-10-05 08:51 | disposition home or self-care (01) ==
LOC: HO.SH 08:50
PROVIDERS: Visit Provider Internal Medicine
DX: Z01.118 Encounter for examination of ears and hearing with other abnormal findings (principal); H90.3 Sensorineural hearing loss, bilateral
CPT/HCPCS: 92557

== ENCOUNTER 2024-10-31 10:40 | Outpatient (AMB) | payer MEDICARE, OTHER, SELFPAY ==
--- OUTSIDE RECORDS SUMMARY | 2024-06-06 05:40 | XMS_ITS ---
Author Organization [facility] Address [address] [place] [address] Care Team Providers Care Zoning Engineer Name Role Phone Estee ANDREA, Esa Primary Care Provider Unavailab rose mary Guzman Jr, Alejandro Unavailable REASON FOR VISIT Patient presents today for a peptic ulcer disease Encounters Encounter Location Date Provider Diagnosis [facility] [address] [place] [address] 06/06/2024 Alejandro Guzman Jr Plan Of Treatment Next Appt Details Provider Name:Alejandro rosado Jr, 12/26/2024 10:20:00 AM, [address] [facility], [address], [place], [address], Progress Notes * NYDIA CARSON ADOB:[birth year] (69 yo F)Acc No.[id number]:06/06/2024 Progress Notes Patient: NYDIA SANTILLAN Provider: Corky Guzman MD :1955 A ge:68 Y S ex:Female Date:06/06/2024 Address:[address], [place] Pcp:Esa Fontanez MD Subjective: * Chief Complaints: * 1 . [...] 0 06/06/2024 Generated for Ousmane talavera/Thomas/Janneth on: 0 10/31/2024 12:09 PM EDT
--- NOTE | 2024-10-31 10:40 | A.OFFVIS_ITS ---
Intake Visit Reasons: 3m/PVR Intake Note: Patient presents today for Telehealth visit follow up nephrolithiasis, renal cyst Urology Medication: none Blood Thinner: None Senior Copywriter Required: No Accompanied by: Self / Same As Patient Allergies aspirin Adverse Reaction (Unknown, Uncoded 01/09/24 16:11) has an ulcer naproxen Adverse Reaction (Unknown, Uncoded 01/09/24 16:11) ulcer Medication List - Last Reconciled 10/31/24 by LESIA Danielle alendronate 70 mg PO QWEEK atorvastatin 20 mg PO BEDTIME losartan 50 mg PO DAILY omeprazole 20 mg PO DAILY primidone 50 mg PO BEDTIME propranolol ER 160 mg PO DAILY HPI Comments Details: Zoe is a very pleasant 69-year-old female patient of Dr. Fontanez. She has a past medical history of gastric ulcer, hypertension, and osteoporosis. She is being followed up on today via telehealth for her recent urinary tract infection, angiolipoma, and nephrolithiasis. In discussion with the patient stephanie arellano she reports having had a cough over the last week in therefore changed her appointment today to telehealth. She reports having completed Bactrim therapy as prescribed and has had no UTI like symptoms. She reports previously she had been experiencing dysuria in this has since subsided. 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 There is right renal scarring Multiple small left renal cysts are noted. She currently denies any bothersome urinary issues or concerns. She denies urinary urgency, urinary frequency, incontinence, nocturia, hematuria, dysuria, foul smelling urine, changes to urinary stream, flank pain, fever, and or chills. She is happy with her current voiding parameters. Will continue with surveillance monitoring of angiolipoma and nephrolithiasis. She reports compliance with vitamin B6 daily as prescribed. She otherwise offers no issues or concerns. [facility] Medical History Hx of gastric ulcer COVID-19 vaccine series completed Osteoporosis Benign tumor of kidney Hypertension Surgical History S/P ear surgery History of tonsillectomy and adenoidectomy Hx of colonoscopy Hx of left cataract extraction [place] teeth extracted Social History Are you a primary animal daycare provider to a significant other at home: No Do you presently have visiting nurse or other home services: No Patient Tobacco Use Status: Never used Tobacco Current occupational status: retired Current occupation: Left Handed Review of Systems Eyes Reports no additional complaints ENT Reports no additional complaints Card Reports as per HPI Resp Reports no additional complaints GI Reports no additional complaints Reports as per HPI Musc Reports as per HPI Neuro Reports no additional complaints Psych Reports no additional complaints Endo Reports no additional complaints Physical Exam Const General: cooperative Orientation/consciousness: patient oriented x3 Resp Effort & Inspection: able to speak in complete sentences Neuro General: patient oriented x3 Psych Speech and movement: Clear speech present Attitude: cooperative Thought process: Normal thought process present Thought content: Normal thought content present Insight: Fair insight present (Psych) Judgement: Fair judgement present (Psych) Telehealth Telehealth Telehealth Platform: Telephone Location of provider rendering services: practice address Location of patient: address on file Patient Identification confirmed using: Name, : Yes Telehealth method: voice only Patient verbally consented to treatment: Yes Patient verbally consented to billing insurance company: Yes Patient informed of any privacy concerns related to visit: Yes Minutes spent on Phone/Video with Pt.: 15 Assessment & Plan Assessment & Plan (1) Nephrolithiasis: Code(s): N20.0 - Calculus of kidney Category: Medical (2) Renal cyst: Code(s): N28.1 - Cyst of kidney, acquired Category: Medical (3) Urinary tract infection: Code(s): N39.0 - Urinary tract infection, site not specified Category: Medical Plan Patient currently denies any bothersome urinary issues or concerns. Will continue with surveillance monitoring of angiolipoma and nephrolithiasis. We discussed at length the importance of adequate hydration relation to urinary tract infections and nephrolithiasis. She reports be happy with current voiding parameters. Will obtain retroperitoneal ultrasound in 6 months. Follow-up in 6 months with imaging and PVR; or sooner with any issues, concerns, and or questions. Orders: Orders US retroperitoneal comp 6 Months N20.0 - Calculus of kidney, N28.1 - Cyst of kidney, acquired, N39.0 - Urinary tract infection, site not specified Patient Instructions: The patient had an opportunity to ask questions regarding the treatment plan. All questions were answered. Physical exam, labs, and imaging were discussed and reviewed in detail. As well as risks, benefits, and discussion of treatment choices. No major barriers to understanding were identified. The patient expressed understanding and agreement with the above treatment plan. The patient was made aware they should contact our office by phone for worsening of their current condition, the appearance of new symptoms, or with any questions or concerns. Compliance is encouraged with any medications and follow up testing that is ordered. It is a privilege to be allowed the opportunity to participate in? your urological care.? Again, if you have any questions or concerns If you have any questions or concerns please do not hesitate to contact me. The office is [phone]. This note is constructed using voice recognition software. While every effort has been made to ensure accuracy acetone recovery worker errors may have been included. Yours sincerely, LESIA Danielle Coding Level of Care Code Tele Est Pt Level 3 (48171) Diagnoses Nephrolithiasis N20.0 Renal cyst N28.1 Urinary tract infection N39.0
== END 2024-10-31 11:57 | disposition home or self-care (01) ==
LOC: HO.HUSH 10:40
PROVIDERS: PCP Internal Medicine; Visit Provider Nurse Practitioner Family
DX: N20.0 Calculus of kidney (principal); N28.1 Cyst of kidney, acquired; N39.0 Urinary tract infection, site not specified
CPT/HCPCS: 99213

== ENCOUNTER → 2024-10-31 10:40 | Outpatient (BNVA) | payer MEDICARE, OTHER, SELFPAY | PROVIDERS: PCP Internal Medicine; Visit Provider Nurse Practitioner Family ==

== ENCOUNTER 2024-11-09 09:46 | Outpatient (REF) | payer SELFPAY ==
--- OUTSIDE RECORDS SUMMARY | 2024-06-06 05:40 | XMS_ITS ---
Author Organization [facility] Address [address] [place] [address] Care Team Providers Care Telephone Betting Clerk Name Role Phone Estee ANDREA, Esa Primary Care Provider Unavailab rose mary Guzman Jr, Alejandro Unavailable REASON FOR VISIT Patient presents today for a peptic ulcer disease Encounters Encounter Location Date Provider Diagnosis [facility] [address] [place] [address] 06/06/2024 Alejandro Guzman Jr Plan Of Treatment Next Appt Details Provider Name:Alejandro rosado Jr, 12/26/2024 10:20:00 AM, [address] [facility], [address], [place], [address], Progress Notes * NYDIA CARSON ADOB:[birth year] (69 yo F)Acc No.[id number]:06/06/2024 Progress Notes Patient: NYDIA SANTILLAN Provider: Corky Guzman MD :1955 A ge:68 Y S ex:Female Date:06/06/2024 Address:[address], [place] Pcp:Esa Fontanez MD Subjective: * Chief Complaints: [...] 06/06/2024 Generated for Ousmane talavera/Thomas/Janneth on: 0 11/09/2024 10:16 AM EDT
== END 2024-11-09 09:47 | disposition home or self-care (01) ==
LOC: HO.HAP 09:46
PROVIDERS: PCP Internal Medicine; Visit Provider Internal Medicine
DX: Z46.1 Encounter for fitting and adjustment of hearing aid (principal)
CPT/HCPCS: V5014

== ENCOUNTER 2024-11-29 09:48 | Outpatient (AMB) | payer OTHER, SELFPAY ==
--- OUTSIDE RECORDS SUMMARY | 2024-06-06 05:40 | XMS_ITS ---
Author Organization [facility] Address [address] [place] [address] Care Team Providers Care Supervisor Fiberglass Boat Assembly Name Role Phone NONE, NONE Primary Care Provider Alejandro Preston Jr [phone] REASON FOR VISIT Patient presents today for a peptic ulcer disease Encounters Encounter Location Date Provider Diagnosis [facility] [address] [place] [address] 06/06/2024 Alejandro Guzman Jr Plan Of Treatment Next Appt Details Provider Name:Alejandro rosado Jr, 12/26/2024 10:20:00 AM, [address], [address], [place], [address], Progress Notes * NYDAI CARSON ADOB:[birth year] (69 yo F)Acc No.[id number]:06/06/2024 Progress Notes Patient: Edgar CATESSANJAY NYDIA Leslee Provider: Corky Guzman MD :1955 A ge:68 Y S ex:Female Date:06/06/2024 Address:[facility] [address] [place] Subjective: * Chief Complaints: * 1 . [...] MD Date: 0 06/06/2024 Generated for Ousmane talavera/Thomas/Sonaliitting on: 0 11/29/2024 10:11 AM EDT
--- OUTSIDE RECORDS SUMMARY | 2024-09-21 05:00 | XMS_ITS ---
Author Organization [facility] Address [address] [place] [address] Care Team Providers Care Club Car Attendant Name Role Phone Estee ANDREA, Esa Primary Care Provider Unavailab Donya Rodarte Unavailable [phone] Verma Encounters Encounter Location Date Provider Diagnosis [facility] [address] [place] [address] 09/21/2024 Donya Lepe Plan Of Treatment No Information Progress Notes * Raymond STAFFORDannine ADOB:[birth year] (69 yo F)Acc No.[id number]:09/21/2024 Progress Note Patient: Zoe SANTILLAN Provider: Jeri Lepe DPM :1955 A ge:69 Y S ex:Female Date:09/21/2024 Address:[address], [place] Pcp:Esa Fontanez MD Subjective: * Chief Complaints: [...] DPM Date: 0 09/21/2024 Generated for Ousmane talavera/Thomas/Sonaliitting on: 0 11/29/2024 10:11 AM EDT
--- NOTE | 2024-11-29 09:48 | A.OFFPC_ITS ---
Vital Signs 11/29/24 09:58 11/29/24 10:37 Height 5 ft 2.4 in Weight 113 lb BMI 20.4 BP 150/70 H 140/78 H Blood Pressure Location Rt brachial Rt brachial Position Sitting Sitting Respiration 16 Pulse 55 Pulse Source Pulse Oximeter Temp 99.6 F Temp Source Temporal Artery Scan Pulse Oximetry (%) 96 Oxygen Delivery Method Room Air Intake Visit Reasons: Establish Care Material Distributor Required: No Accompanied by: Self / Same As Patient Allergies aspirin Adverse Reaction (Unknown, Uncoded 11/29/24 10:16) has an ulcer naproxen Adverse Reaction (Unknown, Uncoded 11/29/24 10:16) ulcer Medication List - Last Reconciled 11/29/24 by Alka Mcginnis PA-C alendronate 70 mg PO QWEEK atorvastatin 20 mg PO BEDTIME losartan 100 mg PO DAILY omeprazole 20 mg PO DAILY primidone 50 mg PO BEDTIME propranolol ER 160 mg PO DAILY pyridoxine (vitamin B6) 10 mg PO DAILY Tobacco use date assessed: 11/29/24 Fall risk assessment: 2 + Falls in past year Last assessed Fall Risk: 11/29/24 Dental Screening Dental Screen Date: 11/29/24 Did you have a dental visit in the last 12 months?: Yes Did you have a dental problem in the last 6 months where you did not have access to dental care?: No Was dental information given to patient?: Patient has dentist HPI Establish Care HPI Details The patient is a 69-year-old female presenting for establishment of care, annual physical exam and management of chronic conditions. The patient has been on alendronate for osteoporosis for approximately 20 to 30 years without a recent bone density scan. She has not experienced any fractures, but the prolonged use of alendronate is concerning due to potential adverse effects. The patient is currently on atorvastatin for hyperlipidemia and losartan and propranolol for hypertension. Her blood pressure was initially recorded at 150/70 mmHg but improved to 140/78 mmHg upon re-evaluation. She takes omeprazole for gastroesophageal reflux disease and reports no current symptoms of acid reflux. 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 She underwent cataract surgery in 2020 and has a history of kidney stones. Preventative care measures include a colonoscopy performed in 2019, which was normal, and a mammogram last year. She is due for a bone density scan and routine blood work, including CBC, CMP, lipid profile, and thyroid function tests. Social History - Housing: The patient shares living arr angements in a program. [facility] Medical History (Updated 11/29/24 @ 10:53 by Alka Mcginnis PA-C) History of mammogram (~01/03/24) Preventative health care GERD (gastroesophageal reflux disease) Hyperlipidemia Annual physical exam Establishing care with new doctor, encounter for Hx of gastric ulcer COVID-19 vaccine series completed Osteoporosis Benign tumor of kidney Hypertension Surgical History S/P ear surgery History of tonsillectomy and adenoidectomy Hx of colonoscopy (~06/17/19) Hx of left cataract extraction [place] extracted Family History Father Prostate cancer [place] on the lung Mother H/O: hysterectomy Heart problem Cancer Social History Housing: Apartment Are you a primary progressive care nurse to a significant other at home: No Do you presently have visiting nurse or other home services: No Alcohol intake: current Alcohol intake frequency: holidays/special occasions only Patient Tobacco Use Status: Never used Tobacco service: No Current occupational status: retired Cognitive needs: No Hearing needs: Yes ((b/l hearing aids)) Vision needs: Yes (rx glasses) Questionnaire PHQ-9 Over the last 2 weeks, how often have you been bothered by any of the following problems? 1. Little interest or pleasure in doing things: not at all 2. Feeling down, depressed, or hopeless: not at all 3. Trouble falling or staying asleep, or sleeping too much: not at all 4. Feeling tired or having little energy: not at all 5. Poor appetite or overeating: not at all 6. Feeling bad about yourself - or that you are a failure or have let yourself or your family down: not at all 7. Trouble concentrating on things, such as reading the newspaper or watching television: not at all 8. Moving or speaking so slowly that other people could have noticed. Or the opposite - being so fidgety or restless that you have been moving around a lot more than usual: not at all 9. Thoughts that you would be better off or of hurting yourself in some way: not at all Total score: 0 Depression Screening Interpretation: Negative Depression Screening Done: Yes 96615 - PHQ-9 Billing: Yes Source: Developed by Drs. Fareed Cavazos, Calli Hanson, Raciel Hogan and colleagues, with an educational jeremiah from [employer]. Thrive Questionnaire Date Thrive assessed: 11/29/24 I am a: Patient What is your living situation today?: I have a steady place to live Within the past 12 months, did the food you bought not last and you didn't have the money to get more?: Never true Within the past 12 months, did you worry whether your food would run out before you got money to buy more?: Never true Do you have trouble paying for medicines?: No Do you have trouble getting transportation to medical appointments?: No Do you have trouble paying your heating and electricity bill?: No Do you have trouble taking care of your child, family member or friend?: No Do you have trouble with day-to-day activities such as bathing, preparing meals, shopping, managing finances, etc.?: No Are you currently unemployed and looking for a job?: No Are you interested in more education?: No Please select the resources that you would like help with: None Currently or been in a relationship where the following occur: No concerns reported THRIVE Score: 0 AUDIT C Alcohol Use Questionnaire (AUDIT-C) 1. How often do you have a drink containing alcohol?: Monthly or less 2. How many drinks containing alcohol do you have on a typical day when you are drinking?: 1 or 2 3. How often do you have six or more drinks on one occasion?: Never Total Score: 1 Score Reviewed/Action Taken: No KIANNA-7 AMB Questionnaire KIANNA-7 Date KIANNA - 7 assessed: 11/29/24 Feeling nervous, anxious, or on edge: 2 = More than half the days Not being able to stop or control worryin = Several days Worrying too much about different things: 0 = Not at all Trouble relaxin = Not at all Being so restless that it is hard to sit still: 0 = Not at all Becoming easily annoyed or irritable: 0 = Not at all Feeling afraid as if something awful might happen: 0 = Not at all Total KIANNA-7 score (0-4 normal; 5-9 mild; 10-14 moderate; 15-21 severe): 3 Source: Developed by Drs. Fareed Cavazos, Calli Hanson, Raciel Hogan and colleagues, with an educational jeremiah from [employer]. KIANNA-7 Assessment Billing KIANNA-7 Assessment Tool: KIANNA-7 Assessment 02285 Review of Systems Const Details: - Cardiovascular: Denies chest pain, dyspnea, or dizziness. - Gastrointestinal: Denies black or bloody stools, unintentional weight loss, or abdominal pain. - Neurological: Denies seizures. - Musculoskeletal: Denies leg swelling. Physical exam (Primary Care) Vital Signs: Last Vital Signs Temp 99.6 F 11/29/24 09:58 Pulse 55 11/29/24 09:58 Resp 16 11/29/24 09:58 BP 150/70 H 11/29/24 09:58 Pulse Ox 96 11/29/24 09:58 Oxygen Delivery Method Room Air 11/29/24 09:58 Care Plan Goal for BP management: <140/90 at Goal BMI result Body Mass Index 20.4 normal bmi Tobacco/Smoking Status: Tobacco use Status Tobacco use date assessed 11/29/24 11/29/24 09:55 Patient Tobacco Use Status Never used Tobacco 11/29/24 10:09 PHQ-9: PHQ-9 Score PHQ-9: Total score 0 11/29/24 09:55 Depression Screening Interpretation: Negative Thrive Assessment: Date of Thrive Assessment Date Thrive assessed 11/29/24 11/29/24 09:55 Currently or been in a relationship where the following occur: No concerns reported Const Other: Appearance: Alert. Oriented X3. No acute distress. Head: Normal external exam. Normocephalic. Atraumatic. Eyes: Pupils are equal, round, and reactive to light. Extraocular movements intact. Conjunctiva and sclera normal. Eyelids normal. Ears: External auditory canal normal. Tympanic membranes normal. Throat: Pharynx normal. Uvula midline. Moist mucous membranes. Neck: Normal inspection. Neck supple. Full range of motion. No adenopathy. Thyroid Normal. No meningeal signs. No neck mass noted. Cardiovascular: Normal heart rate and rhythm. Heart sound normal. No murmurs noted. Pulses normal throughout. Respiratory: No respiratory distress. Painless inspiration. Breath sounds normal. No wheezes/rales/rhonchi noted. Chest nontender. No accessory muscle usage noted or decreased air movement noted. Abdomen: Soft and nontender. Bowel sounds normal in all 4 quadrants. No distention noted. No organomegaly noted. No visible injury noted. Back: No costovertebral angle tenderness. Full range of motion noted. Skin: Skin warm and dry. Normal skin color. Normal skin turgor. No rashes/lesions/lacerations noted. Extremities: No lower extremity edema. Extremities exhibit normal range of mot ion. Extremities nontender. Neuro: Oriented X 3. No motor deficit. No sensory deficit. Reflexes normal. Results Reviewed Results Reviewed: - Colonoscopy (07/13/2019): Normal findings. - Urinalysis (July 2022): Normal findings. Coding Level of Care Code New Pt Level 5 (33400) New Pt Prev Care >65yr (88146) Diagnoses Establishing care with new doctor, encounter for Z76. Annual physical exam Z00.00 Osteoporosis M81.0 Hyperlipidemia E78.5 GERD (gastroesophageal reflux disease) K21.9 Angiomyolipoma of kidney D17.71 Preventative health care Z00.00 Hypertension I10 Additional Codes PHQ-9 - 76662 - PHQ-9 Billing: Yes ([id number]) KIANNA-7 Assessment Billing - KIANNA-7 Assessment Tool: KIANNA-7 Assessment 91026 ([id number]) Assessment & Plan Assessment & Plan (1) Establishing care with new doctor, encounter for: Code(s): Z76.89 - Persons encountering health services in other specified circumstances Category: Medical (2) Annual physical exam: Code(s): Z00.00 - Encounter for general adult medical examination without abnormal findings Category: Medical (3) Osteoporosis: Code(s): M81.0 - Age-related osteoporosis without current pathological fracture Category: Medical Plan: The patient has been on alendronate for osteoporosis for 20 to 30 years without a recent bone density scan. A bone density scan is recommended to assess the current status of bone health and determine the necessity of continuing a lendronate therapy. (4) Hyperlipidemia: Code(s): E78.5 - Hyperlipidemia, unspecified Category: Medical Plan: The patient is currently on atorvastatin for hyperlipidemia. Routine lipid profile testing is planned to evaluate the effectiveness of the current treatment regimen. (5) GERD (gastroesophageal reflux disease): Code(s): K21.9 - Gastro-esophageal reflux disease without esophagitis Category: Medical Plan: The patient is taking omeprazole for gastroesophageal reflux disease and reports no current symptoms. Continued use of omeprazole is recommended, with monitoring for any potential side effects. (6) Angiomyolipoma of kidney: Code(s): D17.71 - Benign lipomatous neoplasm of kidney Category: Medical Plan: The patient has a history of a benign neoplasm of the kidney, which is currently stable. No immediate intervention is required, but regular monitoring is advised. (7) Preventative health care: Code(s): Z00.00 - Encounter for general adult medical examination without abnormal findings Category: Medical Plan: Preventative care measures include scheduling a bone density scan and routine blood work, including CBC, CMP, lipid profile, and thyroid function tests. A mammogram is also recommended as part of routine screening. (8) Hypertension: Code(s): I10 - Essential (primary) hypertension Category: Medical Plan: The patient is on losartan and propranolol for hypertension, with blood pressure readings of 150/70 mmHg initially and 140/78 mmHg upon re-evaluation. Continued monitoring of blood pressure is advised, and medications should be maintained as prescribed. Plan Plan Patient was informed and verbally consented to the use of an ambient scribe for clinic note documentation during this visit. 1. Osteoporosis The patient has been on alendronate for osteoporosis for 20 to 30 years without a recent bone density scan. A bone density scan is recommended to assess the current status of bone health and determine the necessity of continuing alendronate therapy. 2. Hypertension The patient is on losartan and propranolol for hypertension, with blood pressure readings of 150/70 mmHg initially and 140/78 mmHg upon re-evaluation. Continued monitoring of blood pressure is advised, and medications should be maintained as prescribed. 3. Hyperlipidemia The patient is currently on atorvastatin for hyperlipidemia. Routine lipid prof ile testing is planned to evaluate the effectiveness of the current treatment regimen. 4. Gastroesophageal Reflux Disease The patient is taking omeprazole for gastroesophageal reflux disease and reports no current symptoms. Continued use of omeprazole is recommended, with monitoring for any potential side effects. 5. Benign Neoplasm Of Kidney The patient has a history of a benign neoplasm of the kidney, which is currently stable. No immediate intervention is required, but regular monitoring is advised. 6. Preventative Care Preventative care measures include scheduling a bone density scan and routine blood work, including CBC, CMP, lipid profile, and thyroid function tests. A mammogram is also recommended as part of routine screening. During the visit, we discussed the importance of a bone density scan given the prolonged use of alendronate for osteoporosis. We also reviewed the patient's current medications for hypertension and hyperlipidemia, emphasizing the need for continued monitoring and adherence to prescribed treatments. Preventative care measures, including a mammogram and routine blood work, were recommended to ensure comprehensive health maintenance. Orders: Orders XR DEXA axial skeleton Today M81.0 - Age-related osteoporosis without current pathological fracture Vitamin B6 Today N20.0 - Calculus of kidney, N28.1 - Cyst of kidney, acquired, N39.0 - Urinary tract infection, site not specified Liver Panel Today Z00.00 - Encounter for general adult medical examination without abnormal findings C Reactive Protein Today Z00.00 - Encounter for general adult medical examination without abnormal findings Complete Blood Count Auto Diff Today Z00.00 - Encounter for general adult medical examination without abnormal findings Vitamin B12 and Folate Today Z00.00 - Encounter for general adult medical examination without abnormal findings Magnesium Today Z00.00 - Encounter for general adult medical examination without abnormal findings Vitamin D 25-OH Total Today Z00.00 - Encounter for general adult medical examination without abnormal findings TSH reflex Free T4 Today Z00.00 - Encounter for general adult medical examination without abnormal findings MM screening mammo BI Today Z12.31 - Encounter for screening mammogram for malignant neoplasm of breast Lipid Panel Today Z00.00 - Encounter for general adult medical examination without abnormal findings Comprehensive [place]. Panel Fast Today Z00.00 - Encounter for general adult medical examination without abnormal findings Hemoglobin A1c Today Z00.00 - Encounter for general adult medical examination without abnormal findings Medications: New losartan 100 mg PO DAILY 90 tabs 3RF propranolol ER 160 mg PO DAILY 90 caps 3RF Patient Instructions: - Continue taking all prescribed medications as directed. - Schedule and attend a bone density scan to evaluate bone health. - Complete routine blood work, including CBC, CMP, lipid profile, and thyroid function tests, while fasting for 10-12 hours prior. - Schedule a mammogram as part of routine preventative care. - Follow up in three months for blood pressure monitoring and medication review.
[2024-11-29 09:58] VITALS: BP 150/70; PULSE 55; RESP 16; TEMP 37.6; O2SAT 96; BMI 20.4
[2024-11-29 10:37] VITALS: BP 140/78
== END 2024-11-29 10:35 | disposition home or self-care (01) ==
LOC: HO.HMCSH 09:49
PROVIDERS: PCP Internal Medicine; Visit Provider Physician Assistant Medical
DX: Z00.00 Encounter for general adult medical examination without abnormal findings (principal); M81.0 Age-related osteoporosis without current pathological fracture; E78.5 Hyperlipidemia, unspecified; K21.9 Gastro-esophageal reflux disease without esophagitis; D17.71 Benign lipomatous neoplasm of kidney; I10 Essential (primary) hypertension

== ENCOUNTER → 2024-11-29 09:48 | Outpatient (BNVA) | payer OTHER, SELFPAY | PROVIDERS: PCP Internal Medicine; Visit Provider Physician Assistant Medical | DX: Z00.00 Encounter for general adult medical examination without abnormal findings (principal); M81.0 Age-related osteoporosis without current pathological fracture; E78.5 Hyperlipidemia, unspecified; I10 Essential (primary) hypertension; K21.9 Gastro-esophageal reflux disease without esophagitis; D17.71 Benign lipomatous neoplasm of kidney; N28.1 Cyst of kidney, acquired; N20.0 Calculus of kidney; Z79.899 Other long term (current) drug therapy; Z76.89 Persons encountering health services in other specified circumstances | CPT/HCPCS: 96127 ==

== ENCOUNTER 2024-12-03 08:14 | Outpatient (REF) | payer OTHER, MEDICARE, SELFPAY ==
--- OUTSIDE RECORDS SUMMARY | 2024-06-06 05:40 | XMS_ITS ---
Author Organization [facility] Address [address] [place] [address] Care Team Providers Care Mandate Retail Service Merchandiser Name Role Phone NONE, NONE Primary Care Provider Alejandro Preston Jr REASON FOR VISIT Patient presents today for a peptic ulcer disease Encounters Encounter Location Date Provider Diagnosis [facility] [address] [facility] [place] [address] 06/06/2024 Alejandro Guzman Jr Plan Of Treatment Next Appt Details Provider Name:Alejandro rosado Jr, 12/26/2024 10:20:00 AM, [address] [facility], [address], [place], [address], Progress Notes * NYDIA CARSON ADOB:[birth year] (69 yo F)Acc No.[id number]:06/06/2024 Progress Notes Patient: Edgar CATESSANJAY NYDIA Leslee Provider: Corky Guzman MD :1955 A ge:68 Y S ex:Female Date:06/06/2024 Address:[facility] [address] [place] Subjective: * Chief Complaints: * 1 . [...] 06/06/2024 Generated for Ousmane talavera/Thomas/Janneth on: 0 12/03/2024 08:21 AM EDT
--- OUTSIDE RECORDS SUMMARY | 2024-09-21 05:00 | XMS_ITS ---
Author Organization [facility] Address [address] [place] [address] Care Team Providers Care Maintenance Craftsman Name Role Phone Estee ANDREA, Esa Primary Care Provider Unavailab Donya Rodarte Unavailable [phone] Verma Encounters Encounter Location Date Provider Diagnosis [facility] [address] [place] [address] 09/21/2024 Donya Lepe Plan Of Treatment No Information Progress Notes * Raymond STAFFORDannine ADOB:[birth year] (69 yo F)Acc No.[id number]:09/21/2024 Progress Note Patient: Zoe SANTILLAN Provider: Jeri Lepe DPM :1955 A ge:69 Y S ex:Female Date:09/21/2024 Address:[address], [place] Pcp:Esa Fontanez MD Subjective: * Chief Complaints: [...] 09/21/2024 Generated for Ousmane talavera/Thomas/Sonaliitting on: 0 12/03/2024 08:21 AM EDT
[2024-12-03 10:05] LABS: MANUAL DIFF FLAG NO
[2024-12-03 10:23] LABS: Hematocrit 40.8 % (37.0-47.0); Hemoglobin 12.9 g/dl (12.0-16.0); Imm Gran Abs Auto 0.02 X10*3/uL (0.00-0.03); Imm Gran Pct Auto 0.4 % (0.0-0.4); Lymphocytes Absolute Auto 1.4 X10*3/uL (1.2-4.9); Mean Corpuscular HGB Conc 31.6 g/dl (31.0-35.0); Mean Corpuscular Hemoglobin 28.8 pg (27.0-33.0); Mean Corpuscular Volume 91.1 fL (80.0-98.0); NRBC Abs Auto 0.000 X10*3/uL (0.0-0.012); NRBC Pct Auto 0.0 /100WBC (0.0-0.2); Platelet Count 250 X10*3/uL (160-400); Red Blood Count 4.48 X10*6/uL (4.20-5.50); White Blood Count 5.3 X10*3/uL (4.8-10.8)
[2024-12-03 10:30] LABS: Hemoglobin A1C 117.5492 umol/L; Total Hemoglobin (HGBA1C) 3362.6189 umol/L
[2024-12-03 10:51] LABS: Alanine Aminotransferase 11 U/L (0-31); Albumin Level 3.8 g/dL (3.5-5.0); Alkaline Phosphatase 54 U/L (39-117); Anion Gap 12 (12-20); Aspartate Amino Transferase 18 U/L (5-31); Blood Urea Nitrogen 19 mg/dL (9-16); Calcium 8.6 mg/dL (8.4-10.2); Carbon Dioxide 26 mmol/L (22-29); Chloride 111 mmol/L (96-108); Cholesterol 215 mg/dL (<200); Estimated Glomerular Filt Rate > 60; HDL Cholesterol 45 mg/dL (>40); Magnesium 2.1 mg/dL (1.6-2.6); Potassium 4.6 mmol/L (3.3-5.1); Sodium 144 mmol/L (135-145); Total Protein 6.5 g/dL (6.5-8.0); Triglycerides 64 mg/dL (<150)
[2024-12-03 10:55] LABS: Folate 11.0 ng/mL (> or = 4.0); Vitamin B12 190 pg/mL (200-900)
== END 2024-12-03 08:15 | disposition home or self-care (01) ==
LOC: HO.HMGCLDS 08:14
PROVIDERS: Visit Provider Physician Assistant Medical
DX: Z00.00 Encounter for general adult medical examination without abnormal findings (principal); N28.1 Cyst of kidney, acquired; N20.0 Calculus of kidney; N39.0 Urinary tract infection, site not specified; Z13.1 Encounter for screening for diabetes mellitus
CPT/HCPCS: 36415; 80053; 80061; 80076; 82248; 82306; 82607; 82746; 83036; 83735; 84207; 84443; 85025; 86140

== ENCOUNTER 2025-02-18 08:41 | Outpatient (REF) | payer MEDICARE, OTHER, SELFPAY ==
--- OUTSIDE RECORDS SUMMARY | 2024-08-31 06:20 | XMS_ITS ---
Author Organization [facility] Address [address] [place] [address] Care Team Providers Care Cardiology Manager Name Role Phone NEHEMIAS LYNN Primary Care Provider Alejandro Weiss Jr REASON FOR VISIT peptic ulcer disease Encounters Encounter Location Date Provider Diagnosis [facility] [address] [facility] [address] [place] [address] 08/31/2024 Alejandro Guzman Jr Plan Of Treatment Next Appt Details Provider Name:Alejandro rosado Jr, 12/30/2025 10:00:00 AM, [address], [address], [place], [address], Progress Notes * NYDIA CARSON ADOB:[birth year] (69 yo F)Acc No.[id number]:08/31/2024 Progress Notes Patient: Edgar CATESSANJAY NYDIA Leslee Provider: Corky Guzman MD :1955 A ge:69 Y S ex:Female Date:08/31/2024 Address:[address], [id number] Pcp:NEHEMIAS LYNN Subjective: * Chief Complaints: * [...] 08/31/2024 Generated for Ousmane talavera/Thomas/Janneth on: 1 09:23 AM EDT
--- OUTSIDE RECORDS SUMMARY | 2024-09-21 05:00 | XMS_ITS ---
Author Organization [facility] Address [address] [place] [address] Care Team Providers Care Dispute Resolution Analyst Name Role Phone Alka Mcginnis Primary Care Provider Donya Rodriguez [phone] Verma Encounters Encounter Location Date Provider Diagnosis [facility] [address] [place] [address] 09/21/2024 Donya Lepe Plan Of Treatment No Information Progress Notes * SÁNCHEZEVELINE Zoe ADOB:[birth year] (69 yo F)Acc No.[id number]:09/21/2024 Progress Note Patient: Nathan SANTILLANine Leslee Provider: Jeri Lepe DPM :1955 A ge:69 Y S ex:Female Date:09/21/2024 Address:[address], [place] Pcp:Alka Mcginnis Subjective: * Chief Complaints: * [...] 09/21/2024 Generated for Ousmane talavera/Thomas/eTransmitting on: 1 09:23 AM EDT
--- OUTSIDE RECORDS SUMMARY | 2024-09-21 06:30 | XMS_ITS ---
Author Organization [facility] Address [address] [place] [address] Care Team Providers Care Mastic Sprayer Name Role Phone Mcginnis Alka Primary Care Provider Donya Rodriguez Unavailable [phone] Allergies Allergen (clinical drug ingredient) Drug/Non Drug Allergy documented on EMR Reaction Allergy Type Onset Date Status aspirin Aspirin bleeding ulcer Drug Allergy Ac tive Medications Medication SIG (Take, Route, Frequency, Duration) Notes Start Date End Date Status Alendronate Sodium 70 MG (Prior Auth: Rx Ref#:[id number]) Oral; Duration: 28 Active Propranolol HCl ER 120 MG Orally Not-Taking Loratadine 10 MG as directed N ot-Taking Losartan Potassium 50 MG 1 tablet Orally Once a day Active Atorvastatin Calcium 20 MG (Prior Auth: Rx Ref#:[id number]) Oral; Duration: 30 Active Propranolol HCl ER 160 MG 1 capsule Oral ly Once a day Active Omeprazole 40 MG (Prior Auth: Rx Ref#:[id number]) Oral; Duration: 30 Active Vitamin B6 Active Primidone Active Vitamin B12 Active Dicyclomine HCl 10 MG (Prior Auth: Rx Ref#:[id number]) Oral; Duration: 20 Not-Taking Metoprolol Tartrate 25 MG (Prior Auth: R x Ref#:[id number]) Oral; Duration: 30 Not-Taking Cyanocobalamin 1000 MCG/ML (Prior Auth: Rx Ref#:[id number]) Injection; Duration: 30 Not-Taking Sucralfate 1 GM (Prior Auth: Rx Ref#:[id number]) Oral; Duration: 30 Not-Taking Valsartan 40 MG (Prior Auth: Rx Ref#:[id number]) Oral; Duration: 30 Not-Taking Encounters Encounter Location Date Provider Diagnosis [facility] [place] [address] [place] [address] 09/21/2024 Donya Lepe Plan Of Treatment No Information Progress Notes * Zoe STAFFORD ADOB:[birth year] (69 yo F)Acc No.[id number]:09/21/2024 Progress Note Patient: Zoe SANTILLAN Provider: Jeri Lepe DPM :1955 A ge:69 Y S ex:Female Date:09/21/2024 Address:[address] [place] [address] , [address], [facility] Pcp:Alka Mcginnis Subjective: * Chief Complaints: * [...] MG Capsule Delayed Release (Prior Auth: Rx Ref#:[id number]) Oral , Taking Alendronate Sodium 70 MG Tablet (Prior Auth: Rx Ref#:[id number]) Oral , Taking Atorvastatin Calcium 20 MG Tablet (Prior Auth: Rx Ref#:[id number]) Oral , Taking Losartan Potassium 50 MG Tablet 1 tablet Orally Once a day , Not-Taking/PRN Loratadine 10 MG Tablet as directed , Not-Taking/PRN Propranolol HCl ER 120 MG Capsule Extended Release 24 Hour Orally , Not-Taking/PRN Valsartan 40 MG Tablet (Prior Auth: Rx Ref#:[id number]) Oral , Not-Taking/PRN Sucralfate 1 GM Tablet (Prior Auth: Rx Ref#:[id number]) Oral , Not-Taking/PRN Cyanocobalamin 1000 MCG/ML Solution (Prior Auth: Rx Ref#:[id number]) Injection , Not-Taking/PRN Metoprolol Tartrate 25 MG Tablet (Prior Auth: Rx Ref#:[id number]) Oral , Not-Taking/PRN Dicyclomine HCl 10 MG Capsule (Prior Auth: Rx Ref#:[id number]) Oral * Allergies: A spirin: bleeding ulcer. [...] 09/21/2024 Generated for Ousmane talavera/Thomas/Sonaliitting on: 1 09:23 AM EDT
--- NOTE | ~2025-02-18 | XR_ITS ---
EXAMINATION: XR KNEE, RIGHT CLINICAL INFORMATION: M25.561 - Pain in right knee COMPARISON: X-ray 10/27/2016 TECHNIQUE: Four views of the right knee. FINDINGS: Acute, mildly distracted/displaced comminuted fracture of the patella. Prominent transverse fracture planes. There probably is intra-articular extension into the patellofemoral joint. Small effusion. Joint spaces are maintained. No abnormal soft tissue calcification. Anterior soft tissue swelling. No radiopaque foreign body. XR/XR knee RT 4V IMPRESSION: Acute, mildly distracted/displaced comminuted fractures of patella, with suspected intra-articular extension. Electronically signed by: Dheeraj Kendall MD 02/18/2025 09:16 AM EDT
--- OUTSIDE RECORDS SUMMARY | 2025-02-18 09:23 | XMS_ITS | Patient Health Record ---
Author Organization [facility] Address [address] [place] [phone] Care Team Providers Care Iron Assorter Name Role Phone NEHEMIAS LYNN Primary Care Provider Alejandro Weiss Jr Unavailable [phone] Allergies Allergen (clinical drug ingredient) Drug/Non Drug Allergy documented on EMR Reaction Allergy Type Onset Date Status aspirin Aspirin Unknown Drug Allergy Active Non-steroidal anti-inflammatory agent (FN) NDAIDS (uncoded) Unknown Allergy Active Reason For Referral No Information Medications Medication SIG (Take, Route, Frequency, Duration) Notes Start Date End Date Status Losartan Potassium 100 MG 1 tablet Orall y Once a day Active Vitamin B-6 25 MG TAKE 1 TABLET BY JR EVERY DAY Oral for 90 Active Propranolol HCl 60 MG 1 tablet on an emp ty stomach Orally Once a day Active Primidone 50 MG 2 tablets Orally Onc e a day Active Omeprazole 20 MG 1 capsule Orally Onc e a day for 30 day(s) 10/28/2016 Active Cholecalciferol 25 MCG (1000 UT) 2 capsule Orally Once a day Active Alendronate Sodium 70 MG/75ML 75 mL 30 m inutes before the first food, beverage or medicine of the day with plain water Orally once a week Active Atorvastatin Calcium 20 MG 1 tablet Oral ly Once a day Active Immunizations Vaccine Route Administration Date Status Comme nts Influenza Unknown 01/14/2019 Administered Influenza Unknown 05/16/2020 Administered Influenza Unknown 03/29/2018 Refused Problems Problem Type SNOMED Code ICD Code Onset Dates Problem Status W/U Status Risk Notes Problem 222720924 Colon cancer screening (Z12.11) Active confirmed Problem 115577506 Right upper quad rant pain (R10.11) Active confirmed Problem Fatigue (87097092) Other fatigue (R53.83) Active confirmed Problem 047655058 Gastroesophageal reflux disease without esophagitis (K21.9) Active confirmed Problem 95661759 Duodenal ulcer w ith hemorrhage (K26.4) Active confirmed Problem 13876933 Peptic ulcer dis ease (K27.9) Active confirmed Vital Signs Heart Rate 60 /min 12/26/2024 Temperature 98.6 degrees Fahrenheit 12/26/2024 Blood pressure diastolic 01 mm Hg 12/26/2024 Height 65 in 12/26/2024 Blood pressure systolic 001 mm Hg 12/26/2024 Weight 112.8 lbs 12/26/2024 BMI 18.77 kg/m2 12/26/2024 Encounters Encounter Location Date Provider Diagnosis [facility] [address] [place] [phone] 12/26/2024 Alejandro Guzman Jr Gastroesophageal reflux disease without esophagitis K21.9 and Peptic ulcer disease K27.9 [facility] [address] [place] [phone] 06/05/2024 Alejandro Guzman Jr [facility] [address] [place] [phone] 08/30/2024 Alejandro Guzman Jr [facility] [address] [place] [phone] 12/26/2024 Alejandro Guzman Jr [facility] [address] [place] [phone] 12/26/2024 Alejandro Guzman Jr [facility] [address] [place] [phone] 02/01/2025 Alejandro Guzman Jr Assessments Encounter Date Diagnosis (ICD Code) Assessment Notes Treatment Notes Treatment Clinical Notes Section Notes 12/26/2024 Gastroesophageal reflux disease without esophagitis (ICD-10 - K21.9) Currently, she is doing well. We have recommended she continue a proton pump inhibitor. She will stay on this for the time being. We discussed diet, lifestyle modifications, and weight management regarding the treatment of reflux. She will call if she has problems. Follow-up will be in 1 year. 12/26/2024 Peptic ulcer disease (ICD-10 - K27.9) Currently, she is doing well. We have recommended she continue a proton pump inhibitor. She will stay on this for the time being. We discussed diet, lifestyle modifications, and weight management regarding the treatment of reflux. She will call if she has problems. Follow-up will be in 1 year. Plan Of Treatment Future Test Test Name Order Date COLONOSCOPY 05/03/2019 Next Appt Details Provider Name:Alejandro Rosa Suman rosado Jr, 12/30/2025 10:00:00 AM, [address] [place] [address], [address], [place], [phone], Insurance Providers Payer Name Payer Address Payer Phone Subscriber Number Group Number Insured Name Patient Relationship to Insured Coverage Start Date Coverage End Date MEDICARE OF [place] [address] [place] [id number] [phone] [id number] NYDIA CARSON Self - patient is the insured [facility] [address] [place] [phone] [id number] NYDIA CARSON Self - patient is the insured Medical (General) History Medical History History ICD Code hypertension hyperlipidemia osteoporosis renal lesion treated with embolization colonoscopy for screening 07/05 normal, t en-year followup right shoulder adhesive capsulitis urinary incontinence 2022 kidney stone Surgical History Surgery Date(Month/Year) kidney surgery oral surgery right ear surgery 1962
--- OUTSIDE RECORDS SUMMARY | 2025-02-18 09:23 | XMS_ITS | Patient Health Record ---
[facility] Address [address] [facility] [place] [address] Care Team Providers Care Document Image Technician Name Role Phone Rahel Alka Primary Care Provider Donya Rodriguez Unavailable [phone] Brandi Arredondo Unavailable [phone] Allergies Allergen (clinical drug ingredient) Drug/Non Drug Allergy documented on EMR Reaction Allergy Type Onset Date Status aspirin Aspirin bleeding ulcer Drug Allergy Ac tive Reason For Referral No Information Medications Medication SIG (Take, Route, Frequency, Duration) Notes Start Date End Date Status Atorvastatin Calcium 20 MG (Prior Auth: Rx Ref#:[id number]) Oral; Duration: 30 Not-Taking Vitamin B6 Not-Takin g Propranolol HCl ER 120 MG Orally Not-Taking Loratadine 10 MG as directed N ot-Taking Alendronate Sodium 70 MG (Prior Auth: Rx Ref#:[id number]) Oral; Duration: 28 Active Omeprazole 40 MG (Prior Auth: Rx Ref#:[id number]) Oral; Duration: 30 Active Dicyclomine HCl 10 MG (Prior Auth: Rx Ref#:[id number]) Oral; Duration: 20 Not-Taking Losartan Potassium 50 MG 1 tablet Orally Once a day Active Vitamin B12 Active Sucralfate 1 GM (Prior Auth: Rx Ref#:[id number]) Oral; Duration: 30 Not-Taking Rosuvastatin Calcium Active Valsartan 40 MG (Prior Auth: Rx Ref#:[id number]) Oral; Duration: 30 Not-Taking Propranolol HCl ER 160 MG 1 capsule Oral ly Once a day Active Metoprolol Tartrate 25 MG (Prior Auth: R x Ref#:[id number]) Oral; Duration: 30 Not-Taking Primidone Active Cyanocobalamin 1000 MCG/ML (Prior Auth: Rx Ref#:[id number]) Injection; Duration: 30 Not-Taking Immunizations Vaccine Route Administration Date Status Comme nts Influenza Unknown 04/15/2024 Administered COVID-19 Pfizer BioNTech Vaccine Unknown 07/22/2020 Administered Second Dose: 08/12/2020 Social History Tobacco Use: Social History Observation Description Date Details (start date - stop date) Never Smoker NA - NA Tobacco use other than smoking: Question Answer Notes Are you an other tobacco user? No Tobacco Control (Standard) Question Answer Notes Tobacco use: Nonsmoker Additional Findings: Tobacco non-user Current no nsmoker AUDIT-C (Standard) Question Answer Notes Did you have a drink containing alcohol in the p ast year? No Points 0 Interpretation Negative Problems Problem Type SNOMED Code ICD Code Onset Dates Problem Status W/U Status Risk Notes Problem Plantar wart (88659598) Plantar wart (B07.0) Active confirmed Problem Bilateral atherosclerosis of arteries of lower limbs (disorder) (13223290023741224 ) Atherosclerosis of [place] artery of both lower extremities, with unspecified presence of clinical manifestation (I70.203) Active confirmed Q7(A), Q8(2B), Q9(1B,2 C) Vital Signs Blood pressure diastolic 65 mm Hg 12/04/2024 Height 5ft4in in 12/04/2024 Blood pressure systolic 120 mm Hg 12/04/2024 Weight 119 lbs 12/04/2024 BMI 20.42 kg/m2 12/04/2024 Encounters Encounter Location Date Provider Diagnosis [facility] [place] [address] [place] [address] 2024 Donya Lepe Atherosclerosis of [place] artery of both lower extremities, with unspecified presence of clinical manifestation I70.203 ; Closed nondisplaced fracture of proximal phalanx of right great toe, initial encounter S92.414A ; Tinea unguium B35.1 ; Pain in right toe(s) M79.674 ; Pain in left toe(s) M79.675 ; Right foot pain M79.671 ; Plantar wart B07.0 ; Left foot pain M79.672 and Contusion of right great toe without damage to nail, initial encounter S90.111A [address] [address] 09/26/2024 Brandi Arredondo Plantar wart B07.0 ; Left foot pain M79.672 ; Atherosclerosis of [place] artery of both lower extremities, with unspecified presence of clinical manifestation I70.203 ; Closed nondisplaced fracture of proximal phalanx of right great toe, initial encounter S92.414A ; Right foot pain M79.671 and Contusion of right great toe without damage to nail, initial encounter S90.111A [address] [address] 12/04/2024 Donya Lepe Plantar wart B07.0 ; Closed nondisplaced fracture of proximal phalanx of right great toe with routine healing S92.414D ; Atherosclerosis of [place] artery of both lower extremities, with unspecified presence of clinical manifestation I70.203 ; Right foot pain M79.671 ; Tinea unguium B35.1 ; Pain in right toe(s) M79.674 ; Pain in left toe(s) M79.675 and Contusion of left lesser toe(s) without damage to nail, initial encounter S90.122A [address] [address] 09/21/2024 Donya Lepe [address] [address] 10/23/2024 Donya Lepe Assessments Encounter Date Diagnosis (ICD Code) Assessment Notes Treatment Notes Treatment Clinical Notes Section Notes 2024 Atherosclerosis of [place] artery of both lower extremities, with unspecified presence of clinical manifestation (ICD-10 - I70.203) Q7(A), Q8(2B), Q9(1B,2C) 2024 Closed nondisplaced fracture of proximal phalanx of right great toe, initial encounter (ICD-10 - S92.414A) 09/26/2024 Plantar wart (ICD-10 - B07.0) 12/04/2024 Plantar wart (ICD-10 - B07.0) 12/04/2024 Closed nondisplaced fracture of proximal phalanx of right great toe with routine healing (ICD-10 - S92.414D) 12/04/2024 Atherosclerosis of [place] artery of both lower extremities, with unspecified presence of clinical manifestation (ICD-10 - I70.203) Q7(A), Q8(2B), Q9(1B,2C) 09/26/2024 Left foot pain (ICD-10 - M79.672) 2024 Tinea unguium (ICD-10 - B35.1) 2024 Pain in right toe(s) (ICD-10 - M79.674) 09/26/2024 Atherosclerosis of [place] artery of both lower extremities, with unspecified presence of clinical manifestation (ICD-10 - I70.203) Q7(A), Q8(2B), Q9(1B,2C) 12/04/2024 Right foot pain (ICD-10 - M79.671) 09/26/2024 Closed nondisplaced fracture of proximal phalanx of right great toe, initial encounter (ICD-10 - S92.414A) 12/04/2024 Tinea unguium (ICD-10 - B35.1) 09/26/2024 Right foot pain (ICD-10 - M79.671) 2024 Pain in left toe(s) (ICD-10 - M79.675) 2024 Right foot pain (ICD-10 - M79.671) 09/26/2024 Contusion of right great toe without damage to nail, initial encounter (ICD-10 - S90.111A) 12/04/2024 Pain in right toe(s) (ICD-10 - M79.674) 12/04/2024 Pain in left toe(s) (ICD-10 - M79.675) 2024 Plantar wart (ICD-10 - B07.0) 12/04/2024 Contusion of left lesser toe(s) without damage to nail, initial encounter (ICD-10 - S90.122A) 2024 Left foot pain (ICD-10 - M79.672) 2024 Contusion of right great toe without damage to nail, initial encounter (ICD-10 - S90.111A) Plan Of Treatment Pending Test Test Name Order Date X ray : Foot, left 3V 12/04/2024 X ray : Foot, right 3V 2024 X ray : Foot, right 3V 12/04/2024 [id number] NAIL, -07/15/2015 [id number] NAIL, -11/20/2015 [id number] NAIL, -04/19/2017 [id number] Destruction, -04/19/2017 Insurance Providers Payer Name Payer Address Payer Phone Subscriber Number Group Number Insured Name Patient Relationship to Insured Coverage Start Date Coverage End Date Medicare National [employer]t [employer] [address] [place] [phone] [id number] Zoe Stafford Self - patient is the insured [employer] Medicare Supplemen t [address] [place] [address] [id number] Zoe Stafford Self - patient is the insured Medical (General) History Medical History History ICD Code Anxiety Cholesterol High blood pressure keloids Osteoporosis Reflux Stomach ulcer Measles Mumps Chicken pox Transfusions Surgical History Surgery Date(Month/Year) cataract surgery 2007 tonsillectomy 1963 teeth extraction 1965 wisdom teeth extraction 1972 ear surgery 1962 kidney surgery 2008 Cataract surgery 2020
== END 2025-02-18 08:42 | disposition home or self-care (01) ==
LOC: HO.HMGCX 08:41
PROVIDERS: PCP Physician Assistant Medical; Visit Provider Physician Assistant Medical
DX: M25.561 Pain in right knee (principal)
CPT/HCPCS: 73564

== ENCOUNTER → 2025-02-18 08:49 | Outpatient (BNV) | payer MEDICARE, OTHER, SELFPAY | PROVIDERS: PCP Physician Assistant Medical; Visit Provider Radiology Diagnostic Ultrasound | DX: S82.034A Nondisplaced transverse fracture of right patella, initial encounter for closed fracture (principal); M25.461 Effusion, right knee; W19.XXXA Unspecified fall, initial encounter | CPT/HCPCS: 73700 ==

== ENCOUNTER 2025-02-18 11:00 | Emergency (ER) | payer MEDICARE, OTHER, SELFPAY ==
--- NOTE | ~2025-02-18 | CT_ITS ---
EXAMINATION: CT KNEE WITHOUT CONTRAST, RIGHT CLINICAL INFORMATION: Fall, pain and swelling , patellar fracture COMPARISON: X-ray from earlier on the same day TECHNIQUE: Axial CT was performed through the right knee without contrast Coronal and sagittal reformatted images were generated from the original axial data set. ALARA: The examination used one or more of the following radiation dose reduction techniques: Automated exposure control, iterative reconstruction, and/or adjustment of mA and/or KV. FINDINGS: Again seen is a transverse fracture through the middle third patella extending to the articular surface. There is no step-off or gap. There is a joint effusion without a fluid/fluid level. No other fractures are identified. Multifocal atherosclerotic ossifications are visible in the popliteal artery . CT/CT knee RT wo IV con IMPRESSION: Acute nondisplaced transverse fracture across the mid third patella extending to the deep articular surface. There is an associated joint effusion. Electronically signed by: Davonte Lopez MD 02/18/2025 11:41 AM EDT
[2025-02-18 11:09] VITALS: BP 118/68; BP 139/65; PULSE 52; RESP 16; TEMP 36.3; O2SAT 98; O2SAT 99; BMI 19.6
--- NOTE | 2025-02-18 11:27 | ED.LOWEXIN ---
HPI - Extremity Injury (Lower) General Chief Complaint: Extremity Injury, Lower Stated Complaint: KNEE PAIN--FALL 5 DAYS AGO Time Seen by Provider: 02/18/25 11:08 Source: patient and old records reviewed Mode of arrival: ambulatory Limitations: no limitations History of Present Illness ED Provider: SANJUANITA BROTHERS Narrative: 69 yo female with PMH of HTN, HLD, GERD, not on blood thinners here with c/o tripping and fallling landing on R knee - no other injuries reported. She has been walking and has pain with walking. She had xray done with PCP and they got a call that she has a patella fracture. She denies numbness, weakness. She was sent to ED for further management of the fracture. MD complaint: knee injury Onset (ago): day(s) (5) Injury: Right: knee Type of Injury: blunt Place: home Severity: mild Relieving factors: immobilization Exacerbating factors: weight bearing, movement and palpation Context: direct blow Other symptoms: none Related Data Home Medications ?Medication ?Instructions ?Recorded ?Confirmed alendronate 70 mg tablet 70 mg PO QWEEK 04/15/20 11/29/24 omeprazole 20 mg capsule,delayed 20 mg PO DAILY 12/19/20 11/29/24 release primidone 50 mg tablet 50 mg PO BEDTIME 01/09/24 11/29/24 pyridoxine (vitamin B6) 10 mg 10 mg PO DAILY 11/29/24 11/29/24 tablet Previous Rx's ?Medication ?Instructions ?Recorded losartan 100 mg tablet 100 mg PO DAILY #90 tabs 11/29/24 propranolol 160 mg capsule,24 160 mg PO DAILY #90 caps 11/29/24 hr,extended release cholecalciferol (vitamin D3) 50 50 mcg PO DAILY #90 caps 12/03/24 mcg (2,000 unit) capsule cyanocobalamin (vitamin B-12) 1,000 mcg PO DAILY #90 caps 12/03/24 1,000 mcg capsule rosuvastatin 20 mg tablet (Crestor) 20 mg PO DAILY #90 tabs 12/03/24 Allergies Allergy/AdvReac Type Severity Reaction Status Date / Time aspirin AdvReac Unknown has an Uncoded 02/18/25 11:12 ulcer naproxen AdvReac Unknown ulcer Uncoded 02/18/25 11:12 Review of Systems Review of Systems: Constitutional : No Fever, No Chills Cardiovascular : No Chest Pain, No SOB Respiratory : No Cough, No Dyspnea Gastrointestinal : No Nausea, No Vomiting, No Diarrhea, No abdominal Pain Musculoskeletal : positive joint pain, No Myalgias, pos Joint Swelling Skin : No Skin lacerations, No rash Neuro : No Weakness, No Numbness, All other systems reviewed and are negative PMFSH Past Medical History Attestation statement: The following information was validated with the patient. Source: old records reviewed Medical History Right patella fracture Right knee pain Vitamin B12 deficiency Vitamin D deficiency History of mammogram (~01/03/24) Preventative health care GERD (gastroesophageal reflux disease) Hyperlipidemia Annual physical exam Establishing care with new doctor, encounter for Hx of gastric ulcer COVID-19 vaccine series completed Osteoporosis Benign tumor of kidney Hypertension Surgical History S/P ear surgery History of tonsillectomy and adenoidectomy Hx of colonoscopy (~06/17/19) Hx of left cataract extraction [place] teeth extracted Family History Family History Father Prostate cancer Water on the lung Mother H/O: hysterectomy Heart problem Cancer Social History Social History Housing: Apartment Are you a primary day care teacher to a significant other at home: No Do you presently have visiting nurse or other home services: No Alcohol intake: current Alcohol intake frequency: holidays/special occasions only Patient Tobacco Use Status: Never used Tobacco Advance Directives: Yes Advance Directives Information Provided: No Advance Directives on File: No Do you have a plan to hurt others: No Plan service: No Current occupational status: retired Cognitive needs: No Hearing needs: Yes ((b/l hearing aids)) Vision needs: Yes (rx glasses) Physical Exam Vital Signs: Vital Signs: Last Vital Signs Temp 97.4 F 02/18/25 11:09 Pulse 52 02/18/25 11:09 Resp 16 02/18/25 11:09 BP 139/65 02/18/25 11:09 Pulse Ox 99 02/18/25 11:09 O2 Del Method Room Air 02/18/25 11:09 BMI result Body Mass Index 19.6 Appearance: Alert. Oriented X3. No acute distress. Eyes: Pupils equal, round and reactive to light. ENT: Pharynx normal. Neck: Normal inspection. Neck supple. CVS: Normal heart rate and rhythm. Pulses normal. Respiratory: No respiratory distress. Breath sounds normal. Abdomen: Soft and nontender. Skin: Skin warm and dry. Normal skin color. Extremities: No lower extremity edema. R patella and prox tibia is ecchymosis and mild ttp there is a small joint effusion normal hip and ankle distal NV intact Neuro: Oriented X 3. No motor deficit. No sensory deficit. Medical Decision Making Medical Decision Making MDM Narrative: 69 yo female with PMH of HTN, HLD, GERD, not on blood thinners here with c/o fall 5 days ago has been walking on it - now with known patella fracture sent in by PCP for further management. At this time CT scan to rule out tib fib. I am going to place in immobilizer and referal outpatient ortho. She is NV intact and no other injuries noted. Differential Diagnosis Differential Diagnoses: The differential diagnosis associated with the presentation includes fracture, effusion Admission/Observation Consideration of admission/observation: Escalation of care including admission/observation considered can ambulate safely stable for DC Consult Healthcare Provider Management of the patient was discussed with: Access Control Specialist immobilizer ordered Independent Interpretation I performed an independent interpretation of an: CT Scan (patella fracture) Radiology Impression Discussion of test interpretation with radiology: I have reviewed the radiologist's reading. External Record Review External record reviewed: Outpatient record Prescription Management I considered prescription management with: Pain Medication Procedures Orthopedic Splinting/Casting Injury #1: Side: right Lower Extremity Injury Location: knee Lower Extremity Immobilizer: knee immobilizer Discharge Plan Discharge Clinical Impression: Fracture, patella Patient Disposition: Home, Self-Care Instructions: Patellar Fracture (ED) Additional Instructions: CT scan shows patella fracture you need to wear immobilizer but are able to weight bear as tolerated follow up with orthopedics do not bend the knee monitor for increased swelling, pain, chest pain, trouble breathing, rash or any other concerns. Prescriptions: No Action rosuvastatin [Crestor] 20 mg tablet 20 mg PO DAILY Qty: 90 3RF cholecalciferol (vitamin D3) 50 mcg (2,000 unit) capsule 50 mcg PO DAILY Qty: 90 3RF cyanocobalamin (vitamin B-12) 1,000 mcg capsule 1,000 mcg PO DAILY Qty: 90 0RF omeprazole 20 mg Capsule,Delayed Release(Dr/Ec) 20 mg PO DAILY alendronate 70 mg tablet 70 mg PO QWEEK primidone 50 mg tablet 50 mg PO BEDTIME pyridoxine (vitamin B6) 10 mg tablet 10 mg PO DAILY losartan 100 mg tablet 100 mg PO DAILY Qty: 90 3RF propranolol 160 mg capsule,extended release 24 hr 160 mg PO DAILY Qty: 90 3RF Referrals: [facility] [Provider Group] Print Language: Belarusian
== END 2025-02-18 14:50 | disposition home or self-care (01) ==
PROVIDERS: Emergency Provider Emergency Medicine; PCP Internal Medicine
DX: S82.034A Nondisplaced transverse fracture of right patella, initial encounter for closed fracture (principal); W01.0XXA Fall on same level from slipping, tripping and stumbling without subsequent striking against object, initial encounter; Y93.9 Activity, unspecified; Y92.9 Unspecified place or not applicable; Y99.9 Unspecified external cause status; M25.561 Pain in right knee
CPT/HCPCS: 29505; 73700; 99284

== ENCOUNTER 2025-02-26 10:34 | Outpatient (AMB) | payer MEDICARE, OTHER, SELFPAY ==
--- OUTSIDE RECORDS SUMMARY | 2024-08-31 06:20 | XMS_ITS ---
Author Organization [facility] Address [address] [place] [address] Care Team Providers Care Sales And Service Technician Name Role Phone NEHEMIAS LYNN Primary Care Provider Alejandro Weiss Jr REASON FOR VISIT peptic ulcer disease Encounters Encounter Location Date Provider Diagnosis [facility] [address] [place] [address] 08/31/2024 Alejandro Guzman Jr Plan Of Treatment Next Appt Details Provider Name:Alejandro rosado Jr, 12/30/2025 10:00:00 AM, [address], [address], [place], [address], Progress Notes * NYDIA CARSON ADOB:[birth year] (69 yo F)Acc No.[id number]:08/31/2024 Progress Notes Patient: Edgar CATESSANJAY NYDIA Leslee Provider: Corky Guzman MD :1955 A ge:69 Y S ex:Female Date:08/31/2024 Address:[address], [id number] Pcp:NEHEMIAS LYNN Subjective: * Chief Complaints: * [...] 08/31/2024 Generated for Ousmane talavera/Thomas/Janneth on: 1 12:27 PM EDT
--- OUTSIDE RECORDS SUMMARY | 2024-09-21 05:00 | XMS_ITS ---
Author Organization [facility] Address [address] [place] [address] Care Team Providers Care Aircraft Cabin Cleaner Name Role Phone Alka Mcginnis Primary Care Provider Donya Rodriguez [phone] Verma Encounters Encounter Location Date Provider Diagnosis [facility] [address] [place] [address] 09/21/2024 Donya Lepe Plan Of Treatment No Information Progress Notes * SÁNCHEZEVELINE Zoe ADOB:[birth year] (69 yo F)Acc No.[id number]:09/21/2024 Progress Note Patient: Raymond SANTILLANannine Leslee Provider: Jeri Lepe DPM :1955 A ge:69 Y S ex:Female Date:09/21/2024 Address:[address], [place] Pcp:Alka Mcginnis Subjective: * Chief Complaints: * [...] 09/21/2024 Generated for Ousmane talavera/Thomas/eTransmitting on: 1 12:27 PM EDT
--- OUTSIDE RECORDS SUMMARY | 2024-09-21 06:30 | XMS_ITS ---
Author Organization [facility] Address [address] [facility] [place] [address] Care Team Providers Care Senior Internet Sales Consultant Name Role Phone Mcginnis Alka Primary Care Provider Donya Rodriguez Unavailable [phone] Allergies Allergen (clinical drug ingredient) Drug/Non Drug Allergy documented on EMR Reaction Allergy Type Onset Date Status aspirin Aspirin bleeding ulcer Drug Allergy Ac tive Medications Medication SIG (Take, Route, Frequency, Duration) Notes Start Date End Date Status Alendronate Sodium 70 MG (Prior Auth: Rx Ref#:[id number]) Oral; Duration: 28 Active Propranolol HCl ER 120 MG Orally Not-Taking Loratadine 10 MG as directed N ot-Taking Losartan Potassium 50 MG 1 tablet Orally Once a day Active Atorvastatin Calcium 20 MG (Prior Auth: Rx Ref#:[id number]) Oral; Duration: 30 Active Propranolol HCl ER 160 MG 1 capsule Oral ly Once a day Active Omeprazole 40 MG (Prior Auth: Rx Ref#:[id number]) Oral; Duration: 30 Active Vitamin B6 Active Primidone Active Vitamin B12 Active Dicyclomine HCl 10 MG (Prior Auth: Rx Ref#:[id number]) Oral; Duration: 20 Not-Taking Metoprolol Tartrate 25 MG (Prior Auth: R x Ref#:[id number]) Oral; Duration: 30 Not-Taking Cyanocobalamin 1000 MCG/ML (Prior Auth: Rx Ref#:[id number]) Injection; Duration: 30 Not-Taking Sucralfate 1 GM (Prior Auth: Rx Ref#:[id number]) Oral; Duration: 30 Not-Taking Valsartan 40 MG (Prior Auth: Rx Ref#:[id number]) Oral; Duration: 30 Not-Taking Encounters Encounter Location Date Provider Diagnosis [facility] [place] [address] [place] [address] 09/21/2024 Donya Lepe Plan Of Treatment No Information Progress Notes * Zoe STAFFORD ADOB:[birth year] (69 yo F)Acc No.[id number]:09/21/2024 Progress Note Patient: Zoe SANTILLAN Provider: Jeri Lepe DPM :1955 A ge:69 Y S ex:Female Date:09/21/2024 Address:[address] [place] [address] , [address], [facility] Pcp:Alka Mcginnis Subjective: * Chief Complaints: * [...] MG Capsule Delayed Release (Prior Auth: Rx Ref#:[id number]) Oral , Taking Alendronate Sodium 70 MG Tablet (Prior Auth: Rx Ref#:[id number]) Oral , Taking Atorvastatin Calcium 20 MG Tablet (Prior Auth: Rx Ref#:[id number]) Oral , Taking Losartan Potassium 50 MG Tablet 1 tablet Orally Once a day , Not-Taking/PRN Loratadine 10 MG Tablet as directed , Not-Taking/PRN Propranolol HCl ER 120 MG Capsule Extended Release 24 Hour Orally , Not-Taking/PRN Valsartan 40 MG Tablet (Prior Auth: Rx Ref#:[id number]) Oral , Not-Taking/PRN Sucralfate 1 GM Tablet (Prior Auth: Rx Ref#:[id number]) Oral , Not-Taking/PRN Cyanocobalamin 1000 MCG/ML Solution (Prior Auth: Rx Ref#:[id number]) Injection , Not-Taking/PRN Metoprolol Tartrate 25 MG Tablet (Prior Auth: Rx Ref#:[id number]) Oral , Not-Taking/PRN Dicyclomine HCl 10 MG Capsule (Prior Auth: Rx Ref#:[id number]) Oral * Allergies: A spirin: bleeding ulcer. [...] 09/21/2024 Generated for Ousmane talavera/Thomas/Sonaliitting on: 1 12:27 PM EDT
[2025-02-26 11:11] VITALS: BP 132/76; PULSE 57; RESP 16; TEMP 36; O2SAT 100; BMI 20.1
--- NOTE | 2025-02-26 11:11 | MHC.PC.OV ---
Vital Signs 02/26/25 11:11 Height 5 ft 2.4 in Weight 111 lb 4 oz BMI 20.1 BP 132/76 Blood Pressure Location Lt brachial Position Sitting Respiration 16 Pulse 57 Pulse Source Pulse Oximeter Temp 96.8 F Temp Source Temporal Artery Scan Pulse Oximetry (%) 100 Oxygen Delivery Method Room Air Intake Visit Reasons: 3 month follow up Hardscape Foreman Required: No Accompanied by: Self / Same As Patient Allergies aspirin Adverse Reaction (Unknown, Uncoded 02/26/25 11:11) has an ulcer naproxen Adverse Reaction (Unknown, Uncoded 02/26/25 11:11) ulcer Tobacco use date assessed: 02/26/25 Fall risk assessment: No Falls in past year Last assessed Fall Risk: 02/26/25 Dental Screening Dental Screen Date: 11/29/24 Did you have a dental visit in the last 12 months?: Yes Did you have a dental problem in the last 6 months where you did not have access to dental care?: No Was dental information given to patient?: Patient has dentist [facility] Medical History Right patella fracture Right knee pain Vitamin B12 deficiency Vitamin D deficiency History of mammogram (~01/03/24) Preventative health care GERD (gastroesophageal reflux disease) Hyperlipidemia Annual physical exam Establishing care with new doctor, encounter for Hx of gastric ulcer COVID-19 vaccine series completed Osteoporosis Benign tumor of kidney Hypertension Surgical History S/P ear surgery History of tonsillectomy and adenoidectomy Hx of colonoscopy (~07/13/19) Hx of left cataract extraction [place] teeth extracted Family History Father Prostate cancer Water on the lung Mother H/O: hysterectomy Heart problem Cancer Social History Housing: Apartment Are you a primary home care provider to a significant other at home: No Do you presently have visiting nurse or other home services: No Alcohol intake: current Alcohol intake frequency: holidays/special occasions only Patient Tobacco Use Status: Never used Tobacco service: No Current occupational status: retired Cognitive needs: No Hearing needs: Yes ((b/l hearing aids)) Vision needs: Yes (rx glasses) Questionnaire PHQ-9 Over the last 2 weeks, how often have you been bothered by any of the following problems? 1. Little interest or pleasure in doing things: not at all 2. Feeling down, depressed, or hopeless: not at all 3. Trouble falling or staying asleep, or sleeping too much: not at all 4. Feeling tired or having little energy: not at all 5. Poor appetite or overeating: not at all 6. Feeling bad about yourself - or that you are a failure or have let yourself or your family down: not at all 7. Trouble concentrating on things, such as reading the newspaper or watching television: not at all 8. Moving or speaking so slowly that other people could have noticed. Or the opposite - being so fidgety or restless that you have been moving around a lot more than usual: not at all 9. Thoughts that you would be better off or of hurting yourself in some way: not at all Total score: 0 Depression Screening Interpretation: Negative Depression Screening Done: Yes 73925 - PHQ-9 Billing: Yes Source: Developed by Drs. Fareed Cavazos, Calli Hanson, Raciel Hogan and colleagues, with an educational jeremiah from [employer]. Thrive Questionnaire Date Thrive assessed: 11/29/24 I am a: Patient What is your living situation today?: I have a steady place to live Within the past 12 months, did the food you bought not last and you didn't have the money to get more?: Never true Within the past 12 months, did you worry whether your food would run out before you got money to buy more?: Never true Do you have trouble paying for medicines?: No Do you have trouble getting transportation to medical appointments?: No Do you have trouble paying your heating and electricity bill?: No Do you have trouble taking care of your child, family member or friend?: No Do you have trouble with day-to-day activities such as bathing, preparing meals, shopping, managing finances, etc.?: No Are you currently unemployed and looking for a job?: No Are you interested in more education?: No Please select the resources that you would like help with: None Currently or been in a relationship where the following occur: No concerns reported THRIVE Score: 0 AUDIT C Alcohol Use Questionnaire (AUDIT-C) 1. How often do you have a drink containing alcohol?: Monthly or less 2. How many drinks containing alcohol do you have on a typical day when you are drinking?: 1 or 2 3. How often do you have six or more drinks on one occasion?: Never Total Score: 1 Score Reviewed/Action Taken: No KIANNA-7 AMB Questionnaire KIANNA-7 Date KIANNA - 7 assessed: 11/29/24 Feeling nervous, anxious, or on edge: 2 = More than half the days Not being able to stop or control worryin = Several days Worrying too much about different things: 0 = Not at all Trouble relaxin = Not at all Being so restless that it is hard to sit still: 0 = Not at all Becoming easily annoyed or irritable: 0 = Not at all Feeling afraid as if something awful might happen: 0 = Not at all Total KIANNA-7 score (0-4 normal; 5-9 mild; 10-14 moderate; 15-21 severe): 3 Source: Developed by Drs. Fareed Cavazos, Calli Hanson, Raciel Hogan and colleagues, with an educational jeremiah from [employer]. KIANNA-7 Assessment Billing KIANNA-7 Assessment Tool: KIANNA-7 Assessment 68213 Physical exam (Primary Care) Vital Signs: Last Vital Signs Temp 96.8 F 02/26/25 11:11 Pulse 57 02/26/25 11:11 Resp 16 02/26/25 11:11 BP 132/76 02/26/25 11:11 Pulse Ox 100 02/26/25 11:11 Oxygen Delivery Method Room Air 02/26/25 11:11 BMI result Body Mass Index 20.1 Tobacco/Smoking Status: Tobacco use Status Tobacco use date assessed 02/26/25 02/26/25 11:12 Patient Tobacco Use Status Never used Tobacco 02/26/25 11:12 PHQ-9: PHQ-9 Score PHQ-9: Total score 0 02/26/25 12:00 Depression Screening Interpretation: Negative Thrive Assessment: Date of Thrive Assessment Date Thrive assessed 11/29/24 02/26/25 11:12 Currently or been in a relationship where the following occur: No concerns reported Coding Level of Care Code Est Pt Level 4 (35459) Complex EM visit Add On G2211 Diagnoses Hypertension I10 Additional Codes KAINNA-7 Assessment Billing - KIANNA-7 Assessment Tool: KIANNA-7 Assessment 12185 ([id number]) PHQ-9 - 70713 - PHQ-9 Billing: Yes ([id number]) Assessment & Plan Assessment & Plan (1) Hypertension: Code(s): I10 - Essential (primary) hypertension Category: Medical Plan: History of Present Illness - The patient is a 69-year-old female presenting with a patellar fracture in the right knee. - The fracture occurred at home when the patient tripped over a fan, approximately two weeks ago. - The patient has undergone an X-ray and CT scan but has not yet had a consultation with an orthopedic surgeon. - The patient visited the emergency room where the fracture was identified as a transverse fracture of the patella. - The patient is currently on medications including propranolol, Crestor, omeprazole, and losartan. - Blood work conducted in November was reported as normal. - The patient has postponed a mammogram due to concerns about COVID-19 but plans to have it done in mid-March. Social History - Transportation: The patient does not own a car and uses a van or Uber for transportation. Review of Systems - Musculoskeletal: Reports right knee pain due to patellar fracture. - General: Denies any other health concerns. Physical Exam General: Cooperative and healthy appearing Nutritional Appearance: Well nourished Orientation/consciousness: Patient oriented x3 Limitations: No limitations Head: Normal to inspection General: Appearance normal, both eyes and all related structures Neck: Normal visual inspection Chest: Normal palpation of entire chest wall Respiratory: Lungs auscultated, no abnormalities noted. ormal respiratory effort Neurology: Patient oriented x3. Results - Imaging: X-ray and CT scan of the right knee showing a transverse fracture of the patella. Plan - Continue current medications: propranolol, Crestor, omeprazole, and losartan. - Schedule a consultation with an orthopedic surgeon for surgical evaluation of the patellar fracture. - Complete the postponed mammogram in mid-March. - Follow-up visit in six months. Discussion Notes I discussed with the patient the nature of her patellar fracture, explaining that it is a transverse fracture and may require surgical intervention with wire fixation. We reviewed her current medications and confirmed that no additional blood work is necessary at this time. I advised her to proceed with the mammogram she had postponed and scheduled a follow-up visit in six months to reassess her condition and overall health. Patient Instructions - Continue taking your current medications as prescribed. - Schedule and attend a consultation with an orthopedic surgeon for your knee fracture. - Complete your mammogram appointment in mid-March. - Return for a follow-up visit in six months.
--- OUTSIDE RECORDS SUMMARY | 2025-02-26 12:27 | XMS_ITS | Patient Health Record ---
Author Organization [facility] Address [address] [place] [id number] Care Team Providers Care Nitrate Operator Name Role Phone NEHEMIAS LYNN Primary Care Provider Alejandro Weiss Jr Unavailable Allergies Allergen (clinical drug ingredient) [...] TAKE 1 TABLET BY JR EVERY DAY Oral; Duration: 90 Active Propranolol HCl 60 MG 1 tablet on an emp ty stomach Orally Once a day Active Primidone 50 MG 2 tablets Orally Onc e a day Active Omeprazole 20 MG 1 capsule Orally Onc e a day; Duration: 30 day(s) 10/28/2016 Active Cholecalciferol 25 MCG [...] Problem Status W/U Status Risk Notes Problem Colon cancer screening (327400305) Colon cancer screening (Z12.11) Active confirmed Problem Right upper quadrant pain (453795873) Right upper quadrant pain (R10.11) Active confirmed Problem Fatigue (05780894) Other fatigue (R53.83) Active confirmed Problem Gastroesophageal reflux disease without esophagitis (050727723) Gastroesophageal reflux disease without esophagitis (K21.9) Active confirmed Problem Duodenal ulcer with hemorrhage (84856558) Duodenal ulcer with hemorrhage (K26.4) Active confirmed Problem Peptic ulcer disease (70979572) Peptic ulcer disease (K27.9) Active confirmed Vital Signs Heart Rate 60 /min 12/26/2024 Temperature 98.6 degrees Fahrenheit 12/26/2024 Blood pressure diastolic 01 mm Hg 12/26/2024 Height 65 in 12/26/2024 Blood pressure systolic 001 mm Hg 12/26/2024 Weight 112.8 lbs 12/26/2024 BMI 18.77 kg/m2 12/26/2024 Encounters Encounter Location Date Provider Diagnosis [facility] [address] [place] [phone] 12/26/2024 Alejandro Guzman Jr Gastroesophageal reflux disease without esophagitis K21.9 and Peptic ulcer disease K27.9 [facility] [address] [place] [phone] 06/05/2024 Alejandro Guzman Jr [facility] [address] [place] [phone] 08/30/2024 Alejandro Guzman Jr [facility] [address] [place] [phone] 12/26/2024 Alejandro Guzman Jr [facility] [address] [place] [phone] 12/26/2024 Alejandro Guzman Jr [facility] [address] [place] [phone] 02/01/2025 Alejandro Guzman Jr Assessments Encounter Date [...] Provider Name:Alejandro rosado Jr, 12/30/2025 10:00:00 AM, [address] [place] [address], [address], [place], [address], Insurance Providers Payer Name Payer Address Payer Phone Subscriber Number Group Number Insured Name Patient Relationship to Insured Coverage Start Date Coverage End Date MEDICARE OF [place] [address] [place] [address] [phone] [id number] NYDIA CARSON Self - patient is the insured [facility] [address] [place] [address] [id number] NYDIA CARSON Self - patient is the insured Medical (General) History Medical History History ICD Code hypertension hyperlipidemia osteoporosis renal lesion treated with embolization colonoscopy for screening 07/05 normal, t en-year followup right shoulder adhesive capsulitis urinary incontinence 2022 kidney stone Surgical History Surgery Date(Month/Year) kidney surgery oral surgery right ear surgery 1962
--- OUTSIDE RECORDS SUMMARY | 2025-02-26 12:28 | XMS_ITS | Patient Health Record ---
Author Organization [facility] Address [address] [facility] [address] Care Team Providers Care Antenna Installer Name Role Phone Rahel Alka Primary Care Provider Donya Rodriguez Unavailable [phone] Brandi Arredondo Unavailable [phone] Allergies Allergen (clinical drug ingredient) Drug/Non Drug Allergy documented on EMR Reaction Allergy Type Onset Date Status aspirin Aspirin bleeding ulcer Drug Allergy Ac tive Reason For Referral No Information Medications Medication SIG (Take, Route, Frequency, Duration) Notes Start Date End Date Status Atorvastatin Calcium 20 MG (Prior Auth: Rx Ref#:[id number]) Oral; Duration: 30 Not-Taking Vitamin B6 Not-Takin g Propranolol HCl ER 120 MG Orally Not-Taking Loratadine 10 MG as directed N ot-Taking Alendronate Sodium 70 MG (Prior Auth: Rx Ref#:[id number]) Oral; Duration: 28 Active Omeprazole 40 MG (Prior Auth: Rx Ref#:[id number]) Oral; Duration: 30 Active Dicyclomine HCl 10 MG (Prior Auth: Rx Ref#:[id number]) Oral; Duration: 20 Not-Taking Losartan Potassium 50 MG 1 tablet Orally Once a day Active Vitamin B12 Active Sucralfate 1 GM (Prior Auth: Rx Ref#:[id number]) Oral; Duration: 30 Not-Taking Rosuvastatin Calcium Active Valsartan 40 MG (Prior Auth: Rx Ref#:[id number]) Oral; Duration: 30 Not-Taking Propranolol HCl ER 160 MG 1 capsule Oral ly Once a day Active Metoprolol Tartrate 25 MG (Prior Auth: R x Ref#:[id number]) Oral; Duration: 30 Not-Taking Primidone Active Cyanocobalamin 1000 MCG/ML (Prior Auth: Rx Ref#:[id number]) Injection; Duration: 30 Not-Taking Immunizations Vaccine Route [...] W/U Status Risk Notes Problem Plantar wart (42511116) Plantar wart (B07.0) Active confirmed Problem Bilateral atherosclerosis of arteries of lower limbs (disorder) (71720865840351332 ) Atherosclerosis of [place] artery of both lower extremities, with unspecified presence of clinical manifestation (I70.203) Active confirmed Q7(A), Q8(2B), Q9(1B,2 C) Vital Signs Blood pressure diastolic 65 mm Hg 12/04/2024 Height 5ft4in in 12/04/2024 Blood pressure systolic 120 mm Hg 12/04/2024 Weight 119 lbs 12/04/2024 BMI 20.42 kg/m2 12/04/2024 Encounters Encounter Location Date Provider Diagnosis [facility] [place] [address] [place] [address] 2024 Donya Lepe Atherosclerosis of [place] artery of both lower extremities, with unspecified [...] without damage to nail, initial encounter S90.111A [address] [address] 09/26/2024 Brandi Arredondo Plantar wart B07.0 ; Left foot pain M79.672 ; Atherosclerosis of [place] artery of both lower extremities, with unspecified presence of clinical manifestation I70.203 ; Closed nondisplaced fracture of proximal phalanx of right great toe, initial encounter S92.414A ; Right foot pain M79.671 and Contusion of right great toe without damage to nail, initial encounter S90.111A [address] [address] 12/04/2024 Donya Lepe Plantar wart B07.0 ; Closed nondisplaced fracture of proximal phalanx of right great toe with routine healing S92.414D ; Atherosclerosis of [place] artery of both lower extremities, with unspecified presence of clinical manifestation I70.203 ; Right foot pain M79.671 ; Tinea unguium B35.1 ; Pain in right toe(s) M79.674 ; Pain in left toe(s) M79.675 and Contusion of left lesser toe(s) without damage to nail, initial encounter S90.122A [address] [address] 09/21/2024 Donya Lepe [address] [address] 10/23/2024 Donya Lepe Assessments Encounter Date Diagnosis (ICD Code) Assessment Notes Treatment Notes Treatment Clinical Notes Section Notes 09/26/2024 Plantar wart (ICD-10 - B07.0) 12/04/2024 Plantar wart (ICD-10 - B07.0) 12/04/2024 Closed nondisplaced fracture of proximal phalanx of right great toe with routine healing (ICD-10 - S92.414D) 2024 Atherosclerosis of [place] artery of both lower extremities, with unspecified presence of clinical manifestation (ICD-10 - I70.203) Q7(A), Q8(2B), Q9(1B,2C) 2024 Closed nondisplaced fracture of proximal phalanx of right great toe, initial encounter (ICD-10 - S92.414A) 2024 Tinea unguium (ICD-10 - B35.1) 12/04/2024 Atherosclerosis of [place] artery of both lower extremities, with unspecified presence of clinical manifestation (ICD-10 - I70.203) Q7(A), Q8(2B), Q9(1B,2C) 09/26/2024 Left foot pain (ICD-10 - M79.672) 09/26/2024 Atherosclerosis of [place] artery of both lower extremities, with unspecified presence of clinical manifestation (ICD-10 - I70.203) Q7(A), Q8(2B), Q9(1B,2C) 12/04/2024 Right foot pain (ICD-10 - M79.671) 2024 Pain in right toe(s) (ICD-10 - M79.674) 2024 Pain in left toe(s) (ICD-10 - M79.675) 12/04/2024 Tinea unguium (ICD-10 - B35.1) 09/26/2024 Closed nondisplaced fracture of proximal phalanx of right great toe, initial encounter (ICD-10 - S92.414A) 09/26/2024 Right foot pain (ICD-10 - M79.671) 09/26/2024 Contusion of right great toe without damage to nail, initial encounter (ICD-10 - S90.111A) 12/04/2024 Pain in right toe(s) (ICD-10 - M79.674) 2024 Right foot pain (ICD-10 - M79.671) 2024 Plantar wart (ICD-10 - B07.0) 12/04/2024 Pain in left toe(s) (ICD-10 - M79.675) 12/04/2024 Contusion of left lesser toe(s) without [...] X ray : Foot, right 3V 12/04/2024 [id number] NAIL, -04/19/2017 [id number] NAIL, -11/20/2015 [id number] NAIL, -07/15/2015 [id number] Destruction, -04/19/2017 Insurance Providers Payer Name Payer Address Payer Phone Subscriber Number Group Number Insured Name Patient Relationship to Insured Coverage Start Date Coverage End Date Medicare National [employer] [address] [place] [phone] [id number] Zoe Stafford Self - patient is the insured [employer] Medicare Supplemen t [address] [place] [phone] [id number] Zoe Stafford Self - patient is the insured Medical (General) History Medical History History ICD Code Anxiety Cholesterol High blood pressure keloids Osteoporosis Reflux Stomach ulcer Measles Mumps Chicken pox Transfusions Surgical History Surgery Date(Month/Year) cataract surgery 2007 tonsillectomy 1963 teeth extraction 1965 wisdom teeth extraction 1972 ear surgery 1962 kidney surgery 2008 Cataract surgery 2020
== END 2025-02-26 12:14 | disposition home or self-care (01) ==
LOC: HO.HMCSH 10:35
PROVIDERS: PCP Internal Medicine; Visit Provider Internal Medicine
DX: I10 Essential (primary) hypertension (principal)

== ENCOUNTER → 2025-02-26 10:34 | Outpatient (BNVA) | payer MEDICARE, OTHER, SELFPAY | PROVIDERS: PCP Internal Medicine; Visit Provider Internal Medicine | DX: I10 Essential (primary) hypertension (principal); S82.031A Displaced transverse fracture of right patella, initial encounter for closed fracture; W22.8XXA Striking against or struck by other objects, initial encounter; Y93.9 Activity, unspecified; Y92.9 Unspecified place or not applicable; Y99.8 Other external cause status | CPT/HCPCS: 96127; 99212 ==

== ENCOUNTER 2025-03-01 08:12 | Outpatient (REF) | payer MEDICARE, OTHER, SELFPAY ==
--- OUTSIDE RECORDS SUMMARY | 2024-06-06 05:40 | XMS_ITS ---
Author Organization [facility] Address [address] [place] [address] Care Team Providers Care Renal Dialysis Rn Name Role Phone NEHEMIAS LYNN Primary Care Provider Alejandro Weiss Jr REASON FOR VISIT Patient presents today for a peptic ulcer disease Encounters Encounter Location Date Provider Diagnosis [facility] [address] [place] [address] 06/06/2024 Alejandro Guzman Jr Plan Of Treatment Next Appt Details Provider Name:Alejandro rosado Jr, 12/30/2025 10:00:00 AM, [address], [address], [place], [address], Progress Notes * NYDIA CARSON ADOB:[birth year] (69 yo F)Acc No.[id number]:06/06/2024 Progress Notes Patient: Edgar NYDIA SIFUENTES Provider: Corky Guzman MD :1955 A ge:68 Y S ex:Female Date:06/06/2024 Address:[facility] [address] [place] Pcp:NEHEMIAS LYNN Subjective: * Chief Complaints: * [...] 0 06/06/2024 Generated for Ousmane talavera/Thomas/Janneth on: 08:26 AM EDT
--- OUTSIDE RECORDS SUMMARY | 2024-08-31 06:20 | XMS_ITS ---
Author Organization [facility] Address [address] [place] [address] Care Team Providers Care Cascade Operator Name Role Phone NEHEMIAS LYNN Primary Care Provider Alejandro Weiss Jr [phone] REASON FOR VISIT peptic ulcer disease Encounters Encounter Location Date Provider Diagnosis [facility] [address] [place] [address] 08/31/2024 Alejandro Guzman Jr Plan Of Treatment Next Appt Details Provider Name:Alejandro rosado Jr, 12/30/2025 10:00:00 AM, [address], [address], [place], [address], Progress Notes * NYDIA CARSON ADOB:[birth year] (69 yo F)Acc No.[id number]:08/31/2024 Progress Notes Patient: Edgar CATESSANJAY NYDIA Leslee Provider: Corky Guzman MD :1955 A ge:69 Y S ex:Female Date:08/31/2024 Address:[address], [place] Pcp:NEHEMIAS LYNN Subjective: * Chief Complaints: * [...] 0 08/31/2024 Generated for Ousmane talavera/Thomas/Janneth on: 1 08:27 AM EDT
--- OUTSIDE RECORDS SUMMARY | 2024-09-21 05:00 | XMS_ITS ---
Author Organization [facility] Address [address] [place] [address] Care Team Providers Care Endless Track Vehicle Mechanic Name Role Phone Alka Mcginnis Primary Care Provider Donya Rodriguez [phone] Verma Encounters Encounter Location Date Provider Diagnosis [facility] [address] [place] [address] 09/21/2024 Donya Lepe Plan Of Treatment No Information Progress Notes * SÁNCHEZEVELINE Zoe ADOB:[birth year] (69 yo F)Acc No.[id number]:09/21/2024 Progress Note Patient: Raymond SANTILLANannine Leslee Provider: Jeri Lepe DPM :1955 A ge:69 Y S ex:Female Date:09/21/2024 Address:[address], [place] [facility] Pcp:Alka Mcginnis Subjective: * Chief Complaints: * [...] 0 09/21/2024 Generated for Ousmane talavera/Thomas/eTransmitting on: 1 08:26 AM EDT
--- OUTSIDE RECORDS SUMMARY | 2024-09-21 06:30 | XMS_ITS ---
Author Organization [facility] Address [address] [facility] [place] [address] Care Team Providers Care Inspector Wire Products Name Role Phone Mcginnis Alka Primary Care Provider Donya Rodriguez Unavailable [phone] Allergies Allergen (clinical drug ingredient) Drug/Non Drug Allergy documented on EMR Reaction Allergy Type Onset Date Status aspirin Aspirin bleeding ulcer Drug Allergy Ac tive Medications Medication SIG (Take, Route, Frequency, Duration) Notes Start Date End Date Status Alendronate Sodium 70 MG (Prior Auth: Rx Ref#:[id number]) Oral; Duration: 28 Active Propranolol HCl ER 120 MG Orally Not-Taking Loratadine 10 MG as directed N ot-Taking Losartan Potassium 50 MG 1 tablet Orally Once a day Active Atorvastatin Calcium 20 MG (Prior Auth: Rx Ref#:[id number]) Oral; Duration: 30 Active Propranolol HCl ER 160 MG 1 capsule Oral ly Once a day Active Omeprazole 40 MG (Prior Auth: Rx Ref#:[id number]) Oral; Duration: 30 Active Vitamin B6 Active Primidone Active Vitamin B12 Active Dicyclomine HCl 10 MG (Prior Auth: Rx Ref#:[id number]) Oral; Duration: 20 Not-Taking Metoprolol Tartrate 25 MG (Prior Auth: R x Ref#:[id number]) Oral; Duration: 30 Not-Taking Cyanocobalamin 1000 MCG/ML (Prior Auth: Rx Ref#:[id number]) Injection; Duration: 30 Not-Taking Sucralfate 1 GM (Prior Auth: Rx Ref#:[id number]) Oral; Duration: 30 Not-Taking Valsartan 40 MG (Prior Auth: Rx Ref#:[id number]) Oral; Duration: 30 Not-Taking Encounters Encounter Location Date Provider Diagnosis [facility] [place] [address] [place] [address] 09/21/2024 Donya Lepe Plan Of Treatment No Information Progress Notes * Zoe STAFFORD ADOB:[birth year] (69 yo F)Acc No.[id number]:09/21/2024 Progress Note Patient: Zoe SANTILLAN Provider: Jeri Lepe DPM :1955 A ge:69 Y S ex:Female Date:09/21/2024 Address:[address] [place] [address] , [address], [facility] Pcp:Alka Mcginnis Subjective: * Chief Complaints: * [...] MG Capsule Delayed Release (Prior Auth: Rx Ref#:[id number]) Oral , Taking Alendronate Sodium 70 MG Tablet (Prior Auth: Rx Ref#:[id number]) Oral , Taking Atorvastatin Calcium 20 MG Tablet (Prior Auth: Rx Ref#:[id number]) Oral , Taking Losartan Potassium 50 MG Tablet 1 tablet Orally Once a day , Not-Taking/PRN Loratadine 10 MG Tablet as directed , Not-Taking/PRN Propranolol HCl ER 120 MG Capsule Extended Release 24 Hour Orally , Not-Taking/PRN Valsartan 40 MG Tablet (Prior Auth: Rx Ref#:[id number]) Oral , Not-Taking/PRN Sucralfate 1 GM Tablet (Prior Auth: Rx Ref#:[id number]) Oral , Not-Taking/PRN Cyanocobalamin 1000 MCG/ML Solution (Prior Auth: Rx Ref#:[id number]) Injection , Not-Taking/PRN Metoprolol Tartrate 25 MG Tablet (Prior Auth: Rx Ref#:[id number]) Oral , Not-Taking/PRN Dicyclomine HCl 10 MG Capsule (Prior Auth: Rx Ref#:[id number]) Oral * Allergies: A spirin: bleeding ulcer. [...] 09/21/2024 Generated for Ousmane talavera/Thomas/Sonaliitting on: 1 08:27 AM EDT
--- NOTE | ~2025-03-01 | XR_ITS ---
CLINICAL HISTORY: M25.569 - Pain in unspecified knee --- Additional Notes or Special Instructions: ap and lateral 2 view right knee Comparison: CT/SR - CT KNEE WITHOUT IV CONTRAST RIGHT - 02/18/25 11:22 EDT CR/SR - XR KNEE 4 OR MORE VIEWS RIGHT - 02/18/25 09:03 EDT Findings: Transverse nondisplaced patellar fracture. Mild osteopenia. No significant loss of joint space, osteophytes, or erosions. Small joint effusion. No radiopaque foreign body. IMPRESSION: 1. Re-identified Transverse nondisplaced patellar fracture. 2. Mild osteopenia. 3. Small joint effusion. 4. No radiopaque foreign body. This document has been electronically signed by: Chuck Yarbrough MD on 03/03/2025 19:06:24
--- OUTSIDE RECORDS SUMMARY | 2025-03-04 08:27 | XMS_ITS | Patient Health Record ---
Author Organization [facility] Address [address] [place] [address] Care Team Providers Care Superintendent Car Construction Name Role Phone NEHEMIAS LYNN Primary Care Provider Alejandro Weiss Jr Unavailable [phone] Allergies Allergen (clinical drug ingredient) Drug/Non Drug [...] Status Risk Notes Problem Colon cancer screening (495259008) Colon cancer screening (Z12.11) Active confirmed Problem Right upper quadrant pain (694001065) Right upper quadrant pain (R10.11) Active confirmed Problem Fatigue (14475383) Other fatigue (R53.83) Active confirmed Problem Gastroesophageal reflux disease without esophagitis (760155678) Gastroesophageal reflux disease without esophagitis (K21.9) Active confirmed Problem Duodenal ulcer with hemorrhage (82948519) Duodenal ulcer with hemorrhage (K26.4) Active confirmed Problem Peptic ulcer disease (98785342) Peptic ulcer disease (K27.9) Active confirmed Vital Signs Heart Rate 60 /min 12/26/2024 Temperature 98.6 degrees Fahrenheit 12/26/2024 Blood pressure diastolic 01 mm Hg 12/26/2024 Height 65 in 12/26/2024 Blood pressure systolic 001 mm Hg 12/26/2024 Weight 112.8 lbs 12/26/2024 BMI 18.77 kg/m2 12/26/2024 Encounters Encounter Location Date Provider Diagnosis [facility] [address] [place] [phone] 12/26/2024 Alejandro Guzman Jr Gastroesophageal reflux disease without esophagitis K21.9 and Peptic ulcer disease K27.9 [facility] [address] [place] [address] 06/05/2024 Alejandro Guzman Jr [facility] [address] [place] [phone] 08/30/2024 Alejandro Guzman Jr [facility] [address] [place] [address] 12/26/2024 Alejandro Guzman Jr [facility] [address] [place] [phone] 12/26/2024 Alejandro Guzman Jr [facility] [address] [place] [phone] 02/01/2025 Alejandro Guzman Jr Assessments Encounter Date [...] Provider Name:Alejandro rosado Jr, 12/30/2025 10:00:00 AM, [address] [place] [address], [address], [place], [address], Insurance Providers Payer Name Payer Address Payer Phone Subscriber Number Group Number Insured Name Patient Relationship to Insured Coverage Start Date Coverage End Date [place] [address] [place] [address] [phone] [id number] NYDIA CARSON Self - patient is the insured [facility] [address] [place] [address] [id number] NYDIA CARSON Self - patient is the insured Medical (General) History Medical History History ICD Code hypertension hyperlipidemia osteoporosis renal lesion treated with embolization colonoscopy for screening 07/05 normal, t en-year followup right shoulder adhesive capsulitis urinary incontinence 2022 kidney stone Surgical History Surgery Date(Month/Year) kidney surgery oral surgery right ear surgery 1962
--- OUTSIDE RECORDS SUMMARY | 2025-03-04 08:27 | XMS_ITS | Patient Health Record ---
Author Organization [facility] Address [address] [facility] [place] [address] Care Team Providers Care Pediatric Oncologist Name Role Phone Rahel Alka Primary Care Provider Donya Rodriguez Unavailable [phone] Brandi Arredondo Unavailable [phone] Allergies Allergen (clinical drug ingredient) Drug/Non Drug Allergy documented on EMR Reaction Allergy Type Onset Date Status aspirin Aspirin bleeding ulcer Drug Allergy Ac tive Reason For Referral No Information Medications Medication SIG (Take, Route, Frequency, Duration) Notes Start Date End Date Status Atorvastatin Calcium 20 MG (Prior Auth: Rx Ref#:[id number]) Oral; Duration: 30 Not-Taking Vitamin B6 Not-Takin g Propranolol HCl ER 120 MG Orally Not-Taking Loratadine 10 MG as directed N ot-Taking Alendronate Sodium 70 MG (Prior Auth: Rx Ref#:[id number]) Oral; Duration: 28 Active Omeprazole 40 MG (Prior Auth: Rx Ref#:[id number]) Oral; Duration: 30 Active Dicyclomine HCl 10 MG (Prior Auth: Rx Ref#:[id number]) Oral; Duration: 20 Not-Taking Losartan Potassium 50 MG 1 tablet Orally Once a day Active Vitamin B12 Active Sucralfate 1 GM (Prior Auth: Rx Ref#:[id number]) Oral; Duration: 30 Not-Taking Rosuvastatin Calcium Active Valsartan 40 MG (Prior Auth: Rx Ref#:[id number]) Oral; Duration: 30 Not-Taking Propranolol HCl ER 160 MG 1 capsule Oral ly Once a day Active Metoprolol Tartrate 25 MG (Prior Auth: R x Ref#:[id number]) Oral; Duration: 30 Not-Taking Primidone Active Cyanocobalamin 1000 MCG/ML (Prior Auth: Rx Ref#:[id number]) Injection; Duration: 30 Not-Taking Immunizations Vaccine Route [...] W/U Status Risk Notes Problem Plantar wart (45627923) Plantar wart (B07.0) Active confirmed Problem Bilateral atherosclerosis of arteries of lower limbs (disorder) (57916061593322336 ) Atherosclerosis of [place] artery of both lower extremities, with unspecified presence of clinical manifestation (I70.203) Active confirmed Q7(A), Q8(2B), Q9(1B,2 C) Vital Signs Blood pressure diastolic 65 mm Hg 12/04/2024 Height 5ft4in in 12/04/2024 Blood pressure systolic 120 mm Hg 12/04/2024 Weight 119 lbs 12/04/2024 BMI 20.42 kg/m2 12/04/2024 Encounters Encounter Location Date Provider Diagnosis [facility] [address] [place] [address] 2024 Donya Lepe Atherosclerosis of [place] artery of both lower extremities, with unspecified [...] without damage to nail, initial encounter S90.111A [address] [address] 09/26/2024 Brandi Arredondo Plantar wart B07.0 ; Left foot pain M79.672 ; Atherosclerosis of [place] artery of both lower extremities, with unspecified presence of clinical manifestation I70.203 ; Closed nondisplaced fracture of proximal phalanx of right great toe, initial encounter S92.414A ; Right foot pain M79.671 and Contusion of right great toe without damage to nail, initial encounter S90.111A [address] [address] 12/04/2024 Donya Lepe Plantar wart B07.0 ; Closed nondisplaced fracture of proximal phalanx of right great toe with routine healing S92.414D ; Atherosclerosis of [place] artery of both lower extremities, with unspecified presence of clinical manifestation I70.203 ; Right foot pain M79.671 ; Tinea unguium B35.1 ; Pain in right toe(s) M79.674 ; Pain in left toe(s) M79.675 and Contusion of left lesser toe(s) without damage to nail, initial encounter S90.122A [address] [address] 09/21/2024 Donya Lepe [address] [address] 10/23/2024 Donya Lepe Assessments Encounter Date Diagnosis (ICD Code) Assessment Notes Treatment Notes Treatment Clinical Notes Section Notes [address] [place] artery of both lower extremities, with unspecified [...] healing (ICD-10 - S92.414D) 12/04/[address] [place] artery of both lower extremities, with unspecified presence of clinical manifestation (ICD-10 - I70.203) Q7(A), Q8(2B), Q9(1B,2C) 09/26/2024 Left foot pain (ICD-10 - M79.672) 2024 Tinea unguium (ICD-10 - B35.1) 2024 Pain in right toe(s) (ICD-10 - M79.674) 09/26/[address] [place] artery of both lower extremities, with unspecified [...] X ray : Foot, right 3V 12/04/2024 [id number] NAIL, -07/15/2015 75543-[id number] NAIL, -11/20/2015 [id number] NAIL, -04/19/2017 81843-[id number] Destruction, -04/19/2017 Insurance Providers Payer Name Payer Address Payer Phone Subscriber Number Group Number Insured Name Patient Relationship to Insured Coverage Start Date Coverage End Date Medicare National Govt Svcs Inc [address] [place] [phone] [id number] Zoe Stafford Self - patient is the insured [employer] Medicare Supplemen t [address] [place] [phone] [id number] Zoe Stafford Self - patient is the insured Medical (General) History Medical History History ICD Code Anxiety Cholesterol High blood pressure keloids Osteoporosis Reflux Stomach ulcer Measles Mumps Chicken pox Transfusions Surgical History Surgery Date(Month/Year) cataract surgery 2007 tonsillectomy 1963 teeth extraction 1965 wisdom teeth extraction 1972 ear surgery 1962 kidney surgery 2008 Cataract surgery 2020
== END 2025-03-01 08:13 | disposition home or self-care (01) ==
LOC: HO.HOSX 08:12
PROVIDERS: Visit Provider Physician Assistant
DX: S82.001D Unspecified fracture of right patella, subsequent encounter for closed fracture with routine healing (principal); W01.0XXD Fall on same level from slipping, tripping and stumbling without subsequent striking against object, subsequent encounter
CPT/HCPCS: 73560; 99202

== ENCOUNTER 2025-03-01 09:56 | Outpatient (AMB) | payer MEDICARE, OTHER, SELFPAY ==
--- OUTSIDE RECORDS SUMMARY | 2024-06-06 05:40 | XMS_ITS ---
Author Organization [facility] Address [address] [place] [address] Care Team Providers Care Classified Advertising Clerk Name Role Phone NEHEMIAS LYNN Primary Care Provider Alejandro Weiss Jr REASON FOR VISIT Patient presents today for a peptic ulcer disease Encounters Encounter Location Date Provider Diagnosis [facility] [address] [place] [address] 06/06/2024 Alejandro Guzman Jr Plan Of Treatment Next Appt Details Provider Name:Alejandro rosado Jr, 12/30/2025 10:00:00 AM, [address], [address], [place], [address], Progress Notes * NYDIA CARSON ADOB:[birth year] (69 yo F)Acc No.[id number]:06/06/2024 Progress Notes Patient: Edgar NYDIA SIFUENTES Provider: Corky Guzman MD :1955 A ge:68 Y S ex:Female Date:06/06/2024 Address:[facility] [address] [place] Pcp:NEHEMIAS LYNN Subjective: * Chief Complaints: * [...] 0 06/06/2024 Generated for Ousmane talavera/Thomas/Janneth on: 11:35 AM EDT
--- OUTSIDE RECORDS SUMMARY | 2024-08-31 06:20 | XMS_ITS ---
Author Organization [facility] Address [address] [place] [address] Care Team Providers Care Polymerization Oven Operator Name Role Phone NEHEMIAS LYNN Primary Care Provider Alejandro Weiss Jr REASON FOR VISIT peptic ulcer disease Encounters Encounter Location Date Provider Diagnosis [facility] [address] [place] [address] 08/31/2024 Alejandro Guzman Jr Plan Of Treatment Next Appt Details Provider Name:Alejandro rosado Jr, 12/30/2025 10:00:00 AM, [address], [address], [place], [address], Progress Notes * NYDIA CARSON ADOB:[birth year] (69 yo F)Acc No.[id number]:08/31/2024 Progress Notes Patient: Edgar CATESSANJAY NYDIA Leslee Provider: Corky Guzman MD :1955 A ge:69 Y S ex:Female Date:08/31/2024 Address:[address], [id number] Pcp:NEHEMIAS LYNN Subjective: * Chief Complaints: * [...] 08/31/2024 Generated for Ousmane talavera/Thomas/Janneth on: 1 11:35 AM EDT
--- OUTSIDE RECORDS SUMMARY | 2024-09-21 05:00 | XMS_ITS ---
Author Organization [facility] Address [address] [place] [address] Care Team Providers Care Milk Receiver Tank Truck Name Role Phone Alka Mcginnis Primary Care Provider Donya Rodriguez [phone] Verma Encounters Encounter Location Date Provider Diagnosis [facility] [address] [place] [address] 09/21/2024 Donya Lepe Plan Of Treatment No Information Progress Notes * SÁNCHEZEVELINE Zoe ADOB:[birth year] (69 yo F)Acc No.[id number]:09/21/2024 Progress Note Patient: Raymond SANTILLANannine Leslee Provider: Jeri Lepe DPM :1955 A ge:69 Y S ex:Female Date:09/21/2024 Address:[address], [id number] Pcp:Alka Mcginnis Subjective: * Chief Complaints: * [...] 09/21/2024 Generated for Ousmane talavera/Thomas/eTransmitting on: 1 11:35 AM EDT
--- OUTSIDE RECORDS SUMMARY | 2024-09-21 06:30 | XMS_ITS ---
Author Organization [facility] Address [address] [place] [address] Care Team Providers Care Boilermaker Ship Name Role Phone Mcginnis Alka Primary Care Provider Donya Rodriguez Unavailable [phone] Allergies Allergen (clinical drug ingredient) Drug/Non Drug Allergy documented on EMR Reaction Allergy Type Onset Date Status aspirin Aspirin bleeding ulcer Drug Allergy Ac tive Medications Medication SIG (Take, Route, Frequency, Duration) Notes Start Date End Date Status Alendronate Sodium 70 MG (Prior Auth: Rx Ref#:[id number]) Oral; Duration: 28 Active Propranolol HCl ER 120 MG Orally Not-Taking Loratadine 10 MG as directed N ot-Taking Losartan Potassium 50 MG 1 tablet Orally Once a day Active Atorvastatin Calcium 20 MG (Prior Auth: Rx Ref#:[id number]) Oral; Duration: 30 Active Propranolol HCl ER 160 MG 1 capsule Oral ly Once a day Active Omeprazole 40 MG (Prior Auth: Rx Ref#:[id number]) Oral; Duration: 30 Active Vitamin B6 Active Primidone Active Vitamin B12 Active Dicyclomine HCl 10 MG (Prior Auth: Rx Ref#:[id number]) Oral; Duration: 20 Not-Taking Metoprolol Tartrate 25 MG (Prior Auth: R x Ref#:[id number]) Oral; Duration: 30 Not-Taking Cyanocobalamin 1000 MCG/ML (Prior Auth: Rx Ref#:[id number]) Injection; Duration: 30 Not-Taking Sucralfate 1 GM (Prior Auth: Rx Ref#:[id number]) Oral; Duration: 30 Not-Taking Valsartan 40 MG (Prior Auth: Rx Ref#:[id number]) Oral; Duration: 30 Not-Taking Encounters Encounter Location Date Provider Diagnosis [facility] [address] [place] [address] 09/21/2024 Donya Lepe Plan Of Treatment No Information Progress Notes * Zoe STAFFODR ADOB:[birth year] (69 yo F)Acc No.[id number]:09/21/2024 Progress Note Patient: Zoe SANTILLAN Provider: Jeri Lepe DPM :1955 A ge:69 Y S ex:Female Date:09/21/2024 Address:[address] [place] [address] , [address], [facility] Pcp:Alka Mcginnis Subjective: * Chief Complaints: * [...] MG Capsule Delayed Release (Prior Auth: Rx Ref#:[id number]) Oral , Taking Alendronate Sodium 70 MG Tablet (Prior Auth: Rx Ref#:[id number]) Oral , Taking Atorvastatin Calcium 20 MG Tablet (Prior Auth: Rx Ref#:[id number]) Oral , Taking Losartan Potassium 50 MG Tablet 1 tablet Orally Once a day , Not-Taking/PRN Loratadine 10 MG Tablet as directed , Not-Taking/PRN Propranolol HCl ER 120 MG Capsule Extended Release 24 Hour Orally , Not-Taking/PRN Valsartan 40 MG Tablet (Prior Auth: Rx Ref#:[id number]) Oral , Not-Taking/PRN Sucralfate 1 GM Tablet (Prior Auth: Rx Ref#:[id number]) Oral , Not-Taking/PRN Cyanocobalamin 1000 MCG/ML Solution (Prior Auth: Rx Ref#:[id number]) Injection , Not-Taking/PRN Metoprolol Tartrate 25 MG Tablet (Prior Auth: Rx Ref#:[id number]) Oral , Not-Taking/PRN Dicyclomine HCl 10 MG Capsule (Prior Auth: Rx Ref#:[id number]) Oral * Allergies: A spirin: bleeding ulcer. [...] 09/21/2024 Generated for Ousmane talavera/Thomas/Sonaliitting on: 1 11:35 AM EDT
--- NOTE | 2025-03-01 10:02 | A.OFFVIS_ITS ---
Vital Signs 03/01/25 10:14 Height 5 ft 2 in Weight 111 lb BMI 20.3 Handedness Left Intake Visit Reasons: FC - right patella fracture, DOI 02/13/25 Intake Note: Zoe is a 69 year old female who presents today for a evaluation of her right knee patella injury, DOI 02/13/25. Patient reports she tripped and fell landing on her knee. She notices that her pain is worse when she is walking and applying pressure to the right knee. Patient was seen at the ED on 02/18/25 were they gave her a knee immobilizer and to weight bear as tolerated. Patient states that her pain is manageable today. She mentions that she hasn't taken anything for the pain since her pain is not that bad. Patient states that her pain is a 1 out of 10 on the pain scale. IMPRESSION: Acute, mildly distracted/displaced comminuted fractures of patella, with suspected intra-articular extension. Allergies aspirin Adverse Reaction (Unknown, Uncoded 02/26/25 11:11) has an ulcer naproxen Adverse Reaction (Unknown, Uncoded 02/26/25 11:11) ulcer HPI HPI FC - right patella fracture, DOI 02/13/25: Details: Ms. Stafford is a 69-year-old female who presents to the office today for a evaluation of a right knee patella fracture that occurred on 02/13/2025.Patient reports she tripped over a cord and fell landing directly on her right knee. Her pain is worse when she is walking and applying pressure to the right knee. Patient was seen at the ED on 02/18/25 were they gave her a knee immobilizer and to weight bear as tolerated. Patient reports pain is managed. [facility] Medical History Right patella fracture Right knee pain Vitamin B12 deficiency Vitamin D deficiency History of mammogram (~01/03/24) Preventative health care GERD (gastroesophageal reflux disease) Hyperlipidemia Annual physical exam Establishing care with new doctor, encounter for Hx of gastric ulcer COVID-19 vaccine series completed Osteoporosis Benign tumor of kidney Hypertension Surgical History S/P ear surgery History of tonsillectomy and adenoidectomy Hx of colonoscopy (~07/13/19) Hx of left cataract extraction [place] teeth extracted Family History Father Prostate cancer Water on the lung Mother H/O: hysterectomy Heart problem Cancer Social History Housing: Apartment Are you a primary residential caregiver to a significant other at home: No Do you presently have visiting nurse or other home services: No Alcohol intake: current Alcohol intake frequency: holidays/special occasions only Patient Tobacco Use Status: Never used Tobacco service: No Current occupational status: retired Cognitive needs: No Hearing needs: Yes ((b/l hearing aids)) Vision needs: Yes (rx glasses) Review of Systems Const All systems reviewed & are unremarkable except as noted in HPI and below Physical Exam Vital Signs: BMI result Body Mass Index 20.3 Const General: cooperative, healthy appearing and no acute distress Resp Effort & Inspection: normal respiratory effort and able to speak in complete sentences Extrem Other: Right patella tender to palpation. No ROM attempted. Able to dorsi/pantar flex. NVI. Psych Appearance: grossly normal Mental Status: mental status grossly normal Attitude: cooperative Office Procedures AMB Fracture Care Fracture Billing Code: Fracture Billing Code Assessment & Plan Assessment & Plan (1) Right patella fracture: Code(s): S82.001A - Unspecified fracture of right patella, initial encounter for closed fracture Category: Medical Plan Ms. Stafford is a 69-year-old female who presents to the office today for a evaluation of a right knee patella fracture that occurred on 02/13/2025.Patient reports she tripped over a cord and fell landing directly on her right knee. Her pain is worse when she is walking and applying pressure to the right knee. Patient was seen at the ED on 02/18/25 were they gave her a knee immobilizer and to weight bear as tolerated. Patient reports pain is managed. While in the office today, the patient was fit for an ACL brace off the shelf locked in extension in which she will wear during ambulation. She will use a soft knee immobilizer given to her in the emergency department while sleeping. Patient understands the importance of keeping the leg in extension at all times to avoid any opportunity of displacing the transverse patellar fracture which could result in surgical intervention. She may weightbear as tolerated with the knee brace locked in extension. I will see her back in 3 weeks with repeat x- rays, sooner if needed. I anticipate she will be able to begin physical therapy to work on gentle range of motion at that time depending on repeat x-rays. X-rays of the right knee which were obtained while in the office today and were reviewed by me, Tiffanie Klein PA-C, revealed right transverse patellar fracture. Orders: Orders XR knee RT 2V Today M25.569 - Pain in unspecified knee Coding Level of Care Code New Pt Level 4 (86268) Diagnoses Right patella fracture S82.001A CPT Codes Fracture Care - Fracture Billing Code: Fracture Billing Code ([id number])
[2025-03-01 10:14] VITALS: BMI 20.3
--- OUTSIDE RECORDS SUMMARY | 2025-03-01 11:35 | XMS_ITS | Patient Health Record ---
Author Organization [employer] [facility] [employer] [facility] Address [address] [facility] [place] [address] Care Team Providers Care Asbestos Textile Supervisor Name Role Phone Rahel Alka Primary Care Provider Donya Rodriguez Unavailable [phone] Brandi Arredondo Unavailable [phone] Allergies Allergen (clinical drug ingredient) Drug/Non Drug Allergy documented on EMR Reaction Allergy Type Onset Date Status aspirin Aspirin bleeding ulcer Drug Allergy Ac tive Reason For Referral No Information Medications Medication SIG (Take, Route, Frequency, Duration) Notes Start Date End Date Status Atorvastatin Calcium 20 MG (Prior Auth: Rx Ref#:[id number]) Oral; Duration: 30 Not-Taking Vitamin B6 Not-Takin g Propranolol HCl ER 120 MG Orally Not-Taking Loratadine 10 MG as directed N ot-Taking Alendronate Sodium 70 MG (Prior Auth: Rx Ref#:[id number]) Oral; Duration: 28 Active Omeprazole 40 MG (Prior Auth: Rx Ref#:[id number]) Oral; Duration: 30 Active Dicyclomine HCl 10 MG (Prior Auth: Rx Ref#:[id number]) Oral; Duration: 20 Not-Taking Losartan Potassium 50 MG 1 tablet Orally Once a day Active Vitamin B12 Active Sucralfate 1 GM (Prior Auth: Rx Ref#:[id number]) Oral; Duration: 30 Not-Taking Rosuvastatin Calcium Active Valsartan 40 MG (Prior Auth: Rx Ref#:[id number]) Oral; Duration: 30 Not-Taking Propranolol HCl ER 160 MG 1 capsule Oral ly Once a day Active Metoprolol Tartrate 25 MG (Prior Auth: R x Ref#:[id number]) Oral; Duration: 30 Not-Taking Primidone Active Cyanocobalamin 1000 MCG/ML (Prior Auth: Rx Ref#:[id number]) Injection; Duration: 30 Not-Taking Immunizations Vaccine Route [...] W/U Status Risk Notes Problem Plantar wart (52413085) Plantar wart (B07.0) Active confirmed Problem Bilateral atherosclerosis of arteries of lower limbs (disorder) (21248570135152143 ) Atherosclerosis of minto artery of both lower extremities, with unspecified presence of clinical manifestation (I70.203) Active confirmed Q7(A), Q8(2B), Q9(1B,2 C) Vital Signs Blood pressure diastolic 65 mm Hg 12/04/2024 Height 5ft4in in 12/04/2024 Blood pressure systolic 120 mm Hg 12/04/2024 Weight 119 lbs 12/04/2024 BMI 20.42 kg/m2 12/04/2024 Encounters Encounter Location Date Provider Diagnosis [facility] [place] [address] [place] [address] 2024 Donya Lepe Atherosclerosis of minto artery of both lower extremities, with unspecified [...] without damage to nail, initial encounter S90.111A [address] [address] 09/26/2024 Brandi Arredondo Plantar wart B07.0 ; Left foot pain M79.672 ; Atherosclerosis of minto artery of both lower extremities, with unspecified presence of clinical manifestation I70.203 ; Closed nondisplaced fracture of proximal phalanx of right great toe, initial encounter S92.414A ; Right foot pain M79.671 and Contusion of right great toe without damage to nail, initial encounter S90.111A [address] [address] 12/04/2024 Donya Lepe Plantar wart B07.0 ; Closed nondisplaced fracture of proximal phalanx of right great toe with routine healing S92.414D ; Atherosclerosis of minto artery of both lower extremities, with unspecified presence of clinical manifestation I70.203 ; Right foot pain M79.671 ; Tinea unguium B35.1 ; Pain in right toe(s) M79.674 ; Pain in left toe(s) M79.675 and Contusion of left lesser toe(s) without damage to nail, initial encounter S90.122A [address] [address] 09/21/2024 Donya Lepe [address] [address] 10/23/2024 Donya Lepe Assessments Encounter Date Diagnosis (ICD Code) Assessment Notes Treatment Notes Treatment Clinical Notes Section Notes 2024 Atherosclerosis of minto artery of both lower extremities, with unspecified [...] healing (ICD-10 - S92.414D) 12/04/2024 Atherosclerosis of minto artery of both lower extremities, with unspecified presence of clinical manifestation (ICD-10 - I70.203) Q7(A), Q8(2B), Q9(1B,2C) 09/26/2024 Left foot pain (ICD-10 - M79.672) 2024 Tinea unguium (ICD-10 - B35.1) 2024 Pain in right toe(s) (ICD-10 - M79.674) 09/26/2024 Atherosclerosis of minto artery of both lower extremities, with unspecified [...] X ray : Foot, right 3V 12/04/2024 [id number] NAIL, -07/15/2015 [id number] NAIL, -11/20/2015 [id number] NAIL, -04/19/2017 37303-[id number] Destruction, -04/19/2017 Insurance Providers Payer Name Payer Address Payer Phone Subscriber Number Group Number Insured Name Patient Relationship to Insured Coverage Start Date Coverage End Date Medicare National Govt Svcs Inc [address] [place] [phone] [id number] Zoe Stafford Self - patient is the insured [employer] Medicare Supplemen t [address] [place] [address] [id number] Zoe Stafford Self - patient is the insured Medical (General) History Medical History History ICD Code Anxiety Cholesterol High blood pressure keloids Osteoporosis Reflux Stomach ulcer Measles Mumps Chicken pox Transfusions Surgical History Surgery Date(Month/Year) cataract surgery 2007 tonsillectomy 1963 teeth extraction 1965 wisdom teeth extraction 1972 ear surgery 1962 kidney surgery 2008 Cataract surgery 2020
--- OUTSIDE RECORDS SUMMARY | 2025-03-01 11:35 | XMS_ITS | Patient Health Record ---
Author Organization [facility] Address [address] [place] [address] Care Team Providers Care Chemical Operator Name Role Phone NEHEMIAS LYNN Primary [...] Status Risk Notes Problem Colon cancer screening (542133824) Colon cancer screening (Z12.11) Active confirmed Problem Right upper quadrant pain (187787296) Right upper quadrant pain (R10.11) Active confirmed Problem Fatigue (63760399) Other fatigue (R53.83) Active confirmed Problem Gastroesophageal reflux disease without esophagitis (346141469) Gastroesophageal reflux disease without esophagitis (K21.9) Active confirmed Problem Duodenal ulcer with hemorrhage (29424476) Duodenal ulcer with hemorrhage (K26.4) Active confirmed Problem Peptic ulcer disease (86297919) Peptic ulcer disease (K27.9) Active confirmed Vital Signs Heart Rate 60 /min 12/26/2024 Temperature 98.6 degrees Fahrenheit 12/26/2024 Blood pressure diastolic 01 mm Hg 12/26/2024 Height 65 in 12/26/2024 Blood pressure systolic 001 mm Hg 12/26/2024 Weight 112.8 lbs 12/26/2024 BMI 18.77 kg/m2 12/26/2024 Encounters Encounter Location Date Provider Diagnosis [facility] [address] [place] [address] 12/26/2024 Alejandro Guzman Jr Gastroesophageal reflux disease without esophagitis K21.9 and Peptic ulcer disease K27.9 [facility] [address] [place] [address] 06/05/2024 Alejandro Guzman Jr [facility] [address] [place] [address] 08/30/2024 Alejandro Guzman Jr [facility] [address] [place] [address] 12/26/2024 Alejandro Guzman Jr [facility] [address] [place] [address] 12/26/2024 Alejandro Guzman Jr [facility] [address] [place] [address] 02/01/2025 Alejandro Guzman Jr Assessments Encounter Date [...] Provider Name:Alejandro rosado Jr, 12/30/2025 10:00:00 AM, [address] [place] [address], [address], [place], [address], Insurance Providers Payer Name Payer Address Payer Phone Subscriber Number Group Number Insured Name Patient Relationship to Insured Coverage Start Date Coverage End Date MED[place]ARE OF [place] [address] [facility] [place] [address] [phone] [id number] NYDIA CARSON Self - patient is the insured [facility] [address] [place] [address] [id number] NYDIA CARSON Self - patient is the insured Medical (General) History Medical History History ICD Code hypertension hyperlipidemia osteoporosis renal lesion treated with embolization colonoscopy for screening 07/05 normal, t en-year followup right shoulder adhesive capsulitis urinary incontinence 2022 kidney stone Surgical History Surgery Date(Month/Year) kidney surgery oral surgery right ear surgery 1962
== END 2025-03-01 10:54 | disposition home or self-care (01) ==
LOC: HO.HOS 09:57
PROVIDERS: PCP Internal Medicine; Visit Provider Physician Assistant
DX: S82.001A Unspecified fracture of right patella, initial encounter for closed fracture (principal)
CPT/HCPCS: 99203

== ENCOUNTER → 2025-03-01 10:01 | Outpatient (BNV) | payer MEDICARE, OTHER, SELFPAY | PROVIDERS: Visit Provider Radiology Diagnostic Radiology | DX: S82.034A Nondisplaced transverse fracture of right patella, initial encounter for closed fracture (principal); M85.861 Other specified disorders of bone density and structure, right lower leg; M25.461 Effusion, right knee | CPT/HCPCS: 73560 ==

== ENCOUNTER 2025-03-22 08:54 | Outpatient (REF) | payer MEDICARE, OTHER, SELFPAY ==
--- OUTSIDE RECORDS SUMMARY | 2024-06-06 04:40 | XMS_ITS ---
Author Organization [facility] Address [address] [place] [address] Care Team Providers Care Processing Tech Name Role Phone NEHEMIAS LYNN Primary Care Provider Alejandro Weiss Jr [phone] REASON FOR VISIT Patient presents today for a peptic ulcer disease Encounters Encounter Location Date Provider Diagnosis [facility] [address] [place] [address] 06/06/2024 Alejandro Guzman Jr Plan Of Treatment Next Appt Details Provider Name:Alejandro rosado Jr, 12/30/2025 10:00:00 AM, [address], [address], [place], [address], Progress Notes * NYDIA CARSON ADOB:[birth year] (69 yo F)Acc No.[id number]:06/06/2024 Progress Notes Patient: Edgar NYDIA SIFUENTES Provider: Corky Guzman MD :1955 A ge:68 Y S ex:Female Date:06/06/2024 Address:[facility] [address] [place] Pcp:NEHEMIAS LYNN Subjective: * Chief Complaints: * 1 . Patient presents today for a peptic ulcer disease. * Medical History: Objective: * Vitals: Assessment: Plan: * Treatment: * * The named appointment provid er may or may not be the originator of this progress note, and it is not deemed complete until electronically signed by the appointment provider. Sign off status: Pending * Provider: Corky Guzman MD Date: 0 06/06/2024 Generated for Ousmane talavera/Thomas/Janneth on: 05/23/2024 08:56 AM EST
--- OUTSIDE RECORDS SUMMARY | 2024-08-31 05:20 | XMS_ITS ---
Author Organization [facility] Address [address] [place] [address] Care Team Providers Care Fine Grade Operator Name Role Phone NEHEMIAS LYNN Primary Care Provider Alejandro Weiss Jr REASON FOR VISIT peptic ulcer disease Encounters Encounter Location Date Provider Diagnosis [facility] [address] [facility] [address] [place] [address] 08/31/2024 Alejandro Guzman Jr Plan Of Treatment Next Appt Details Provider Name:Alejandro rosado Jr, 12/30/2025 10:00:00 AM, [address], [address], [place], [address], Progress Notes * NYDIA CARSON ADOB:[birth year] (69 yo F)Acc No.[id number]:08/31/2024 Progress Notes Patient: Edgar CATESSANJAY NY[place] Leslee Provider: Corky Guzman MD :1955 A ge:69 Y S ex:Female Date:08/31/2024 Address:[address], [place] Pcp:NEHEMIAS LYNN Subjective: * Chief Complaints: * 1 . Peptic ulcer disease. * Medical History: Objective: * Vitals: Assessment: Plan: * Treatment: * * The named appointment provid er may or may not be the originator of this progress note, and it is not deemed complete until electronically signed by the appointment provider. Sign off status: Pending * Provider: Corky Guzman MD Date: 0 08/31/2024 Generated for Ousmane talavera/Thomas/Janneth on: 05/23/2024 08:57 AM EST
--- OUTSIDE RECORDS SUMMARY | 2024-09-21 04:00 | XMS_ITS ---
Author Organization [facility] Address [address] [place] [address] Care Team Providers Care Distributed Energy Systems Consultant Name Role Phone Alka Mcginnis Primary Care Provider Donya Rodriguez [phone] Verma Encounters Encounter Location Date Provider Diagnosis [facility] [address] [place] [address] 09/21/2024 Dnoya Lepe Plan Of Treatment No Information Progress Notes * SÁNCHEZEVELINE Zoe ADOB:[birth year] (69 yo F)Acc No.[id number]:09/21/2024 Progress Note Patient: Nathan SANTILLANine Leslee Provider: Jeri Lepe DPM :1955 A ge:69 Y S ex:Female Date:09/21/2024 Address:[address], [place] Pcp:Alka Mcginnis Subjective: * Chief Complaints: * [address] Verma. * Medical History: Objective: * Vitals: Assessment: Plan: * Treatment: * Images: * The named appointment provid er may or may not be the originator of this progress note, and it is not deemed complete until electronically signed by the appointment provider. Sign off status: Pending * Provider: Jeri Lepe DPM Date: 0 09/21/2024 Generated for Ousmane talavera/Thomas/eTransmitting on: 05/23/2024 08:57 AM EST
--- OUTSIDE RECORDS SUMMARY | 2024-09-21 05:30 | XMS_ITS ---
Author Organization [facility] Address [address] [facility] [place] [address] Care Team Providers Care Change Management Director Name Role Phone Mcginnis Alka Primary Care Provider Donya Rodriguez Unavailable [phone] Allergies Allergen (clinical drug ingredient) Drug/Non Drug Allergy documented on EMR Reaction Allergy Type Onset Date Status aspirin Aspirin bleeding ulcer Drug Allergy Ac tive Medications Medication SIG (Take, Route, Frequency, Duration) Notes Start Date End Date Status Alendronate Sodium 70 MG (Prior Auth: Rx Ref#:[id number]) Oral; Duration: 28 Active Propranolol HCl ER 120 MG Orally Not-Taking Loratadine 10 MG as directed N ot-Taking Losartan Potassium 50 MG 1 tablet Orally Once a day Active Atorvastatin Calcium 20 MG (Prior Auth: Rx Ref#:[id number]) Oral; Duration: 30 Active Propranolol HCl ER 160 MG 1 capsule Oral ly Once a day Active Omeprazole 40 MG (Prior Auth: Rx Ref#:[id number]) Oral; Duration: 30 Active Vitamin B6 Active Primidone Active Vitamin B12 Active Dicyclomine HCl 10 MG (Prior Auth: Rx Ref#:[id number]) Oral; Duration: 20 Not-Taking Metoprolol Tartrate 25 MG (Prior Auth: R x Ref#:[id number]) Oral; Duration: 30 Not-Taking Cyanocobalamin 1000 MCG/ML (Prior Auth: Rx Ref#:[id number]) Injection; Duration: 30 Not-Taking Sucralfate 1 GM (Prior Auth: Rx Ref#:[id number]) Oral; Duration: 30 Not-Taking Valsartan 40 MG (Prior Auth: Rx Ref#:[id number]) Oral; Duration: 30 Not-Taking Encounters Encounter Location Date Provider Diagnosis [facility] [address] [place] [address] 09/21/2024 Donya Lepe Plan Of Treatment No Information Progress Notes * Zoe STAFFORD ADOB:[birth year] (69 yo F)Acc No.[id number]:09/21/2024 Progress Note Patient: Zoe SANTILLAN Provider: Jeri Lepe DPM :1955 A ge:69 Y S ex:Female Date:09/21/2024 Address:[address] [place] [address] , [address], [facility] Pcp:Alka Mcginnis Subjective: * Chief Complaints: * [...] MG Capsule Delayed Release (Prior Auth: Rx Ref#:[id number]) Oral , Taking Alendronate Sodium 70 MG Tablet (Prior Auth: Rx Ref#:[id number]) Oral , Taking Atorvastatin Calcium 20 MG Tablet (Prior Auth: Rx Ref#:[id number]) Oral , Taking Losartan Potassium 50 MG Tablet 1 tablet Orally Once a day , Not-Taking/PRN Loratadine 10 MG Tablet as directed , Not-Taking/PRN Propranolol HCl ER 120 MG Capsule Extended Release 24 Hour Orally , Not-Taking/PRN Valsartan 40 MG Tablet (Prior Auth: Rx Ref#:[id number]) Oral , Not-Taking/PRN Sucralfate 1 GM Tablet (Prior Auth: Rx Ref#:[id number]) Oral , Not-Taking/PRN Cyanocobalamin 1000 MCG/ML Solution (Prior Auth: Rx Ref#:[id number]) Injection , Not-Taking/PRN Metoprolol Tartrate 25 MG Tablet (Prior Auth: Rx Ref#:[id number]) Oral , Not-Taking/PRN Dicyclomine HCl 10 MG Capsule (Prior Auth: Rx Ref#:[id number]) Oral * Allergies: A spirin: bleeding ulcer. Objective: * Vitals: Assessment: Plan: * Treatment: * Images: * The named appointment provid er may or may not be the originator of this progress note, and it is not deemed complete until electronically signed by the appointment provider. Sign off status: Pending * Provider: Jeri Lepe DPM Date: 0 09/21/2024 Generated for Ousmane talavera/Thomas/Sonaliitting on: 05/23/2024 08:57 AM EST
--- NOTE | ~2025-03-22 | XR_ITS ---
EXAMINATION: XR KNEE, RIGHT CLINICAL INFORMATION: M25.569 - Pain in unspecified knee , patellar fracture follow-up COMPARISON: February 18 and 2024 TECHNIQUE: Four views of the right knee. FINDINGS: Again seen is a transverse fracture across the central patella, just inferior to midline. There is increasing osteopenia of patella. There is no joint effusion. There is small osteophyte involving the medial aspect of the medial femoral condyle. XR/XR knee RT 2V IMPRESSION: Stable transverse fracture across the central patella. Electronically signed by: Davonte Lopez MD 03/22/2025 10:00 AM NIKI
--- OUTSIDE RECORDS SUMMARY | 2025-03-23 08:57 | XMS_ITS | Patient Health Record ---
Author Organization [facility] Address [address] [place] [address] Care Team Providers Care Tierce Filler Name Role Phone NEHEMIAS LYNN Primary Care [...] Status Risk Notes Problem Colon cancer screening (989179659) Colon cancer screening (Z12.11) Active confirmed Problem Right upper quadrant pain (112627368) Right upper quadrant pain (R10.11) Active confirmed Problem Fatigue (92019086) Other fatigue (R53.83) Active confirmed Problem Gastroesophageal reflux disease without esophagitis (752341407) Gastroesophageal reflux disease without esophagitis (K21.9) Active confirmed Problem Duodenal ulcer with hemorrhage (58340078) Duodenal ulcer with hemorrhage (K26.4) Active confirmed Problem Peptic ulcer disease (45581729) Peptic ulcer disease (K27.9) Active confirmed Vital Signs Heart Rate 60 /min 12/26/2024 Temperature 98.6 degrees Fahrenheit 12/26/2024 Blood pressure diastolic 01 mm Hg 12/26/2024 Height 65 in 12/26/2024 Blood pressure systolic 001 mm Hg 12/26/2024 Weight 112.8 lbs 12/26/2024 BMI 18.77 kg/m2 12/26/2024 Encounters Encounter Location Date Provider Diagnosis [facility] [address] [place] [address] 12/26/2024 Alejandro Guzman Jr Gastroesophageal reflux disease without esophagitis K21.9 and Peptic ulcer disease K27.9 [facility] [address] [place] [address] 06/05/2024 Alejandro Guzman Jr [facility] [address] [place] [address] 08/30/2024 Alejandro Guzman Jr [facility] [address] [place] [address] 12/26/2024 Alejandro Guzman Jr [facility] [address] [place] [phone] 12/26/2024 Alejandro Guzman Jr [facility] [address] [place] [address] 02/01/2025 Alejandro Guzman Jr Assessments Encounter Date [...] Provider Name:Alejandro rosado Jr, 12/30/2025 10:00:00 AM, [address] [place] [address], [address], [place], [address], Insurance Providers Payer Name Payer Address Payer Phone Subscriber Number Group Number Insured Name Patient Relationship to Insured Coverage Start Date Coverage End Date MED[place]ARE OF [place] [address] [facility] [place] [address] [phone] [id number] NYDIA CARSON Self - patient is the insured [facility] [address] [place] [address] [id number] NYDIA CARSON Self - patient is the insured Medical (General) History Medical History History ICD Code hypertension hyperlipidemia osteoporosis renal lesion treated with embolization colonoscopy for screening 07/05 normal, t en-year followup right shoulder adhesive capsulitis urinary incontinence 2022 kidney stone Surgical History Surgery Date(Month/Year) kidney surgery oral surgery right ear surgery 1962
--- OUTSIDE RECORDS SUMMARY | 2025-03-23 08:57 | XMS_ITS | Patient Health Record ---
Author Organization [facility] Address [address] [address] Care Team Providers Care Nurses Supervisor Name Role Phone Rahel Alka Primary Care Provider Donya Rodriguez Unavailable [phone] Brandi Arredondo Unavailable [phone] Allergies Allergen (clinical drug ingredient) Drug/Non Drug Allergy documented on EMR Reaction Allergy Type Onset Date Status aspirin Aspirin bleeding ulcer Drug Allergy Ac tive Reason For Referral No Information Medications Medication SIG (Take, Route, Frequency, Duration) Notes Start Date End Date Status Atorvastatin Calcium 20 MG (Prior Auth: Rx Ref#:[id number]) Oral; Duration: 30 Not-Taking Vitamin B6 Not-Takin g Propranolol HCl ER 120 MG Orally Not-Taking Loratadine 10 MG as directed N ot-Taking Alendronate Sodium 70 MG (Prior Auth: Rx Ref#:[id number]) Oral; Duration: 28 Active Omeprazole 40 MG (Prior Auth: Rx Ref#:[id number]) Oral; Duration: 30 Active Dicyclomine HCl 10 MG (Prior Auth: Rx Ref#:[id number]) Oral; Duration: 20 Not-Taking Losartan Potassium 50 MG 1 tablet Orally Once a day Active Vitamin B12 Active Sucralfate 1 GM (Prior Auth: Rx Ref#:[id number]) Oral; Duration: 30 Not-Taking Rosuvastatin Calcium Active Valsartan 40 MG (Prior Auth: Rx Ref#:[id number]) Oral; Duration: 30 Not-Taking Propranolol HCl ER 160 MG 1 capsule Oral ly Once a day Active Metoprolol Tartrate 25 MG (Prior Auth: R x Ref#:[id number]) Oral; Duration: 30 Not-Taking Primidone Active Cyanocobalamin 1000 MCG/ML (Prior Auth: Rx Ref#:[id number]) Injection; Duration: 30 Not-Taking Immunizations Vaccine Route [...] W/U Status Risk Notes Problem Plantar wart (07962736) Plantar wart (B07.0) Active confirmed Problem Bilateral atherosclerosis of arteries of lower limbs (disorder) (57529654234017629 ) Atherosclerosis of [place] artery of both lower extremities, with unspecified presence of clinical manifestation (I70.203) Active confirmed Q7(A), Q8(2B), Q9(1B,2 C) Vital Signs Blood pressure diastolic 65 mm Hg 12/04/2024 Height 5ft4in in 12/04/2024 Blood pressure systolic 120 mm Hg 12/04/2024 Weight 119 lbs 12/04/2024 BMI 20.42 kg/m2 12/04/2024 Encounters Encounter Location Date Provider Diagnosis [facility] [address] [place] [address] 2024 Donya Lepe Atherosclerosis of [place] artery of both lower extremities, with unspecified [...] without damage to nail, initial encounter S90.111A [address] [address] 09/26/2024 Brandi Arredondo Plantar wart B07.0 ; Left foot pain M79.672 ; Atherosclerosis of [place] artery of both lower extremities, with unspecified presence of clinical manifestation I70.203 ; Closed nondisplaced fracture of proximal phalanx of right great toe, initial encounter S92.414A ; Right foot pain M79.671 and Contusion of right great toe without damage to nail, initial encounter S90.111A [address] [address] 12/04/2024 Donya Lepe Plantar wart B07.0 ; Closed nondisplaced fracture of proximal phalanx of right great toe with routine healing S92.414D ; Atherosclerosis of [place] artery of both lower extremities, with unspecified presence of clinical manifestation I70.203 ; Right foot pain M79.671 ; Tinea unguium B35.1 ; Pain in right toe(s) M79.674 ; Pain in left toe(s) M79.675 and Contusion of left lesser toe(s) without damage to nail, initial encounter S90.122A [address] [address] 09/21/2024 Donya Lepe [address] [address] 10/23/2024 Donya Lepe Assessments Encounter Date Diagnosis (ICD Code) Assessment Notes Treatment Notes Treatment Clinical Notes Section Notes 2024 Atherosclerosis of [place] artery of both lower extremities, with unspecified [...] healing (ICD-10 - S92.414D) 12/04/2024 Atherosclerosis of [place] artery of both lower extremities, with unspecified presence of clinical manifestation (ICD-10 - I70.203) Q7(A), Q8(2B), Q9(1B,2C) 09/26/2024 Left foot pain (ICD-10 - M79.672) 2024 Tinea unguium (ICD-10 - B35.1) 2024 Pain in right toe(s) (ICD-10 - M79.674) 09/26/2024 Atherosclerosis of [place] artery of both lower extremities, with unspecified [...] X ray : Foot, right 3V 12/04/2024 10177-[id number] NAIL, -07/15/2015 12936-JCIPXUU NAIL, -11/20/2015 99444-FLYHMTM NAIL, -04/19/2017 68049-Atmy Destruction, -04/19/2017 Insurance Providers Payer Name Payer Address Payer Phone Subscriber Number Group Number Insured Name Patient Relationship to Insured Coverage Start Date Coverage End Date Medicare National Govt Svcs Inc [address] [place] [phone] [id number] Zoe Stafford Self - patient is the insured [employer] Medicare Supplemen t [address] [place] [address] [id number] Zoe Stafford Self - patient is the insured Medical (General) History Medical History History ICD Code Anxiety Cholesterol High blood pressure keloids Osteoporosis Reflux Stomach ulcer Measles Mumps Chicken pox Transfusions Surgical History Surgery Date(Month/Year) cataract surgery 2007 tonsillectomy 1963 teeth extraction 1965 wisdom teeth extraction 1972 ear surgery 1962 kidney surgery 2008 Cataract surgery 2020
== END 2025-03-22 08:55 | disposition home or self-care (01) ==
LOC: HO.HOSX 08:54
PROVIDERS: Visit Provider Physician Assistant
DX: S82.001A Unspecified fracture of right patella, initial encounter for closed fracture (principal); X58.XXXA Exposure to other specified factors, initial encounter
CPT/HCPCS: 73560; 99212

== ENCOUNTER 2025-03-22 09:46 | Outpatient (AMB) | payer MEDICARE, OTHER, SELFPAY ==
--- OUTSIDE RECORDS SUMMARY | 2024-06-06 04:40 | XMS_ITS ---
Author Organization [facility] Address [address] [place] [address] Care Team Providers Care Sand Conditioner Name Role Phone NEHEMIAS LYNN Primary Care Provider Alejandro Weiss Jr REASON FOR VISIT Patient presents today for a peptic ulcer disease Encounters Encounter Location Date Provider Diagnosis [facility] [address] [place] [address] 06/06/2024 Alejandro Guzman Jr Plan Of Treatment Next Appt Details Provider Name:Alejandro rosado Jr, 12/30/2025 10:00:00 AM, [address] [facility] [facility], [address], [place], [address], Progress Notes * NYDIA CARSON ADOB:[birth year] (69 yo F)Acc No.[id number]:06/06/2024 Progress Notes Patient: Edgar NYDIA SIFUENTES Provider: Corky Guzman MD :1955 A ge:68 Y S ex:Female Date:06/06/2024 Address:[facility] [address] [place] Pcp:NEHEMIAS LYNN Subjective: * Chief Complaints: * [...] 0 06/06/2024 Generated for Ousmane talavera/Thomas/Janneth on: 05/22/2024 11:09 AM EST
--- OUTSIDE RECORDS SUMMARY | 2024-08-31 05:20 | XMS_ITS ---
Author Organization [facility] Address [address] [place] [address] Care Team Providers Care Mail Rider Name Role Phone NEHEMIAS LYNN Primary Care Provider Alejandro Weiss Jr [phone] REASON FOR VISIT peptic ulcer disease Encounters Encounter Location Date Provider Diagnosis [facility] [address] [facility] [address] [place] [address] 08/31/2024 Alejandro Guzman Jr Plan Of Treatment Next Appt Details Provider Name:Alejandro rosado Jr, 12/30/2025 10:00:00 AM, [address], [address], [place], [address], Progress Notes * NYDIA CARSON ADOB:[birth year] (69 yo F)Acc No.[id number]:08/31/2024 Progress Notes Patient: Edgar CATESSANJAY [place] Provider: Corky Guzman MD :1955 A ge:69 Y S ex:Female Date:08/31/2024 Address:[address], [place] Pcp:NEHEMIAS LYNN Subjective: * Chief Complaints: * [...] 0 08/31/2024 Generated for Ousmane talavera/Thomas/Janneth on: 05/22/2024 11:10 AM EST
--- OUTSIDE RECORDS SUMMARY | 2024-09-21 04:00 | XMS_ITS ---
Author Organization [facility] Address [address] [place] [address] Care Team Providers Care Burglar Alarm Superintendent Name Role Phone Alka Mcginnis Primary Care Provider Donya Rodriguez [phone] Verma Encounters Encounter Location Date Provider Diagnosis [facility] [address] [place] [address] 09/21/2024 Donya Lepe Plan Of Treatment No Information Progress Notes * SÁNHCEZEVELINE Zoe ADOB:[birth year] (69 yo F)Acc No.[id number]:09/21/2024 Progress Note Patient: Nathan SANTILLANine Leslee Provider: Jeri Lepe DPM :1955 A ge:69 Y S ex:Female Date:09/21/2024 Address:[address], [id number] Pcp:Alka Mcginnis Subjective: * Chief Complaints: * [...] 0 09/21/2024 Generated for Ousmane talavera/Thomas/eTransmitting on: 05/22/2024 11:10 AM EST
--- OUTSIDE RECORDS SUMMARY | 2024-09-21 05:30 | XMS_ITS ---
Author Organization [facility] Address [address] [facility] [address] Care Team Providers Care Commercial Lending Relationship Manager Name Role Phone Mcginnis Alka Primary Care Provider Donya Rodriguez Unavailable [phone] Allergies Allergen (clinical drug ingredient) Drug/Non Drug Allergy documented on EMR Reaction Allergy Type Onset Date Status aspirin Aspirin bleeding ulcer Drug Allergy Ac tive Medications Medication SIG (Take, Route, Frequency, Duration) Notes Start Date End Date Status Alendronate Sodium 70 MG (Prior Auth: Rx Ref#:[id number]) Oral; Duration: 28 Active Propranolol HCl ER 120 MG Orally Not-Taking Loratadine 10 MG as directed N ot-Taking Losartan Potassium 50 MG 1 tablet Orally Once a day Active Atorvastatin Calcium 20 MG (Prior Auth: Rx Ref#:[id number]) Oral; Duration: 30 Active Propranolol HCl ER 160 MG 1 capsule Oral ly Once a day Active Omeprazole 40 MG (Prior Auth: Rx Ref#:[id number]) Oral; Duration: 30 Active Vitamin B6 Active Primidone Active Vitamin B12 Active Dicyclomine HCl 10 MG (Prior Auth: Rx Ref#:[id number]) Oral; Duration: 20 Not-Taking Metoprolol Tartrate 25 MG (Prior Auth: R x Ref#:[id number]) Oral; Duration: 30 Not-Taking Cyanocobalamin 1000 MCG/ML (Prior Auth: Rx Ref#:[id number]) Injection; Duration: 30 Not-Taking Sucralfate 1 GM (Prior Auth: Rx Ref#:[id number]) Oral; Duration: 30 Not-Taking Valsartan 40 MG (Prior Auth: Rx Ref#:[id number]) Oral; Duration: 30 Not-Taking Encounters Encounter Location Date Provider Diagnosis [facility] [address] [place] [address] 09/21/2024 Donya Lepe Plan Of Treatment No Information Progress Notes * Zoe STAFFORD ADOB:[birth year] (69 yo F)Acc No.[id number]:09/21/2024 Progress Note Patient: Zoe SANTILLAN Provider: Jeri Lepe DPM :1955 A ge:69 Y S ex:Female Date:09/21/2024 Address:[address] [place] [address] , [address], [facility] Pcp:Alka Mcginnis Subjective: * Chief Complaints: * * Medical History: A nxiety, Cholesterol, High blood pressure, Keloids, Osteoporosis, Reflux, Stomach ulcer, Measles, Mumps, Chicken pox, Transfusions. * Medications: T aking Vitamin B12 , Taking Vitamin B6 , Taking Primidone , Taking Propranolol HCl ER 160 MG Capsule Extended Release 24 Hour 1 capsule Orally Once a day , Taking Omeprazole 40 MG Capsule Delayed Release (Prior Auth: Rx Ref#:[id number]) Oral , Taking Alendronate Sodium 70 MG Tablet (Prior Auth: Rx Ref#:[id number]) Oral , Taking Atorvastatin Calcium 20 MG Tablet (Prior Auth: Rx Ref#:[id number]) Oral , Taking Losartan Potassium 50 MG Tablet 1 tablet Orally Once a day , Not-Taking/PRN Loratadine 10 MG Tablet as directed , Not-Taking/PRN Propranolol HCl ER 120 MG Capsule Extended Release 24 Hour Orally , Not-Taking/PRN Valsartan 40 MG Tablet (Prior Auth: Rx Ref#:[id number]) Oral , Not-Taking/PRN Sucralfate 1 GM Tablet (Prior Auth: Rx Ref#:[id number]) Oral , Not-Taking/PRN Cyanocobalamin 1000 MCG/ML Solution (Prior Auth: Rx Ref#:[id number]) Injection , Not-Taking/PRN Metoprolol Tartrate 25 MG Tablet (Prior Auth: Rx Ref#:[id number]) Oral , Not-Taking/PRN Dicyclomine HCl 10 MG Capsule (Prior Auth: Rx Ref#:[id number]) Oral * Allergies: A spirin: bleeding ulcer. Objective: * Vitals: Assessment: Plan: * Treatment: * Images: * The named appointment provid er may or may not be the originator of this progress note, and it is not deemed complete until electronically signed by the appointment provider. Sign off status: Pending * Provider: Jeri Lepe DPM Date: 0 09/21/2024 Generated for Ousmane talavera/Thomas/Sonaliitting on: 1 05/22/2024 11:10 AM EST
--- NOTE | 2025-03-22 09:51 | A.OFFVIS_ITS ---
Intake Visit Reasons: OV-right patella fracture, DOI 02/13/25-xrays? Intake Note: Zoe is a 69 year old female who presents today for a follow up of her right knee patella injury, DOI 02/13/25. AT her last visit she was fit for an ACL brace off the shelf locked in extension with ambulation. Patient reports she is feeling better today and her brace was helping her. Allergies aspirin Adverse Reaction (Unknown, Uncoded 02/26/25 11:11) has an ulcer naproxen Adverse Reaction (Unknown, Uncoded 02/26/25 11:11) ulcer HPI HPI OV-right patella fracture, DOI 02/13/25-xrays?: Details: Ms. Stafford is a 69-year-old female who presents to the office today for routine follow up of a right transverse patellar fracture that occurred on 02/13/2025. Patient has been wearing the ACL brace locked in extension as instructed. She has been weight-bearing as tolerated. She denies any pain. Denies any new injury. No additional complaints. [facility] Medical History Right patella fracture Right knee pain Vitamin B12 deficiency Vitamin D deficiency History of mammogram (~01/03/24) Preventative health care GERD (gastroesophageal reflux disease) Hyperlipidemia Annual physical exam Establishing care with new doctor, encounter for Hx of gastric ulcer COVID-19 vaccine series completed Osteoporosis Benign tumor of kidney Hypertension Surgical History S/P ear surgery History of tonsillectomy and adenoidectomy Hx of colonoscopy (~07/13/19) Hx of left cataract extraction [place] teeth extracted Family History Father Prostate cancer Water on the lung Mother H/O: hysterectomy Heart problem Cancer Social History Housing: Apartment Are you a primary child care centre director to a significant other at home: No Do you presently have visiting nurse or other home services: No Alcohol intake: current Alcohol intake frequency: holidays/special occasions only Patient Tobacco Use Status: Never used Tobacco service: No Current occupational status: retired Cognitive needs: No Hearing needs: Yes ((b/l hearing aids)) Vision needs: Yes (rx glasses) Review of Systems Const All systems reviewed & are unremarkable except as noted in HPI and below Physical Exam Const General: cooperative, healthy appearing and no acute distress Resp Effort & Inspection: normal respiratory effort and able to speak in complete sentences Extrem Other: Right patella tender to palpation. No ROM attempted. Able to dorsi/pantar flex. NVI. Psych Appearance: grossly normal Mental Status: mental status grossly normal Attitude: cooperative Assessment & Plan Assessment & Plan (1) Right patella fracture: Code(s): S82.001A - Unspecified fracture of right patella, initial encounter for closed fracture Category: Medical Plan Ms. Stafford is a 69-year-old female who presents to the office today for routine follow up of a right transverse patellar fracture that occurred on 02/13/2025. Patient has been wearing the ACL brace locked in extension as instructed. She has been weight-bearing as tolerated. She denies any pain. Denies any new injury. No additional complaints. While in the office today, I instructed the patient to continue wearing the ACL brace. At the moment it will remain locked in extension. However, I placed a physical therapy order with instruction to unlock the knee brace by 10 degrees each week. She may continue to weightbear as tolerated. She will follow up in 6 weeks, sooner if needed. X-rays of the right knee which were obtained while in the office today and were reviewed by me, Tiffanie Klein PA-C, revealed right patellar transverse fracture with routine healing. Orders: Orders XR knee RT 2V Today M25.569 - Pain in unspecified knee PT Evaluation and Treatment Today S82.001A - Unspecified fracture of right patella, initial encounter for closed fracture Coding Level of Care Code Global (65670) Diagnoses Right patella fracture S82.001A
--- OUTSIDE RECORDS SUMMARY | 2025-03-22 11:10 | XMS_ITS | Patient Health Record ---
[facility] Organization [facility] Address [address] [place] [address] Care Team Providers Care Ux Visual Designer Name Role Phone Rahel Alka Primary Care Provider Donya Rodriguez Unavailable [phone] Brandi Arredondo Unavailable [phone] Allergies Allergen (clinical drug ingredient) Drug/Non Drug Allergy documented on EMR Reaction Allergy Type Onset Date Status aspirin Aspirin bleeding ulcer Drug Allergy Ac tive Reason For Referral No Information Medications Medication SIG (Take, Route, Frequency, Duration) Notes Start Date End Date Status Atorvastatin Calcium 20 MG (Prior Auth: Rx Ref#:[id number]) Oral; Duration: 30 Not-Taking Vitamin B6 Not-Takin g Propranolol HCl ER 120 MG Orally Not-Taking Loratadine 10 MG as directed N ot-Taking Alendronate Sodium 70 MG (Prior Auth: Rx Ref#:[id number]) Oral; Duration: 28 Active Omeprazole 40 MG (Prior Auth: Rx Ref#:[id number]) Oral; Duration: 30 Active Dicyclomine HCl 10 MG (Prior Auth: Rx Ref#:[id number]) Oral; Duration: 20 Not-Taking Losartan Potassium 50 MG 1 tablet Orally Once a day Active Vitamin B12 Active Sucralfate 1 GM (Prior Auth: Rx Ref#:[id number]) Oral; Duration: 30 Not-Taking Rosuvastatin Calcium Active Valsartan 40 MG (Prior Auth: Rx Ref#:[id number]) Oral; Duration: 30 Not-Taking Propranolol HCl ER 160 MG 1 capsule Oral ly Once a day Active Metoprolol Tartrate 25 MG (Prior Auth: R x Ref#:[id number]) Oral; Duration: 30 Not-Taking Primidone Active Cyanocobalamin 1000 MCG/ML (Prior Auth: Rx Ref#:[id number]) Injection; Duration: 30 Not-Taking Immunizations Vaccine Route [...] W/U Status Risk Notes Problem Plantar wart (67395242) Plantar wart (B07.0) Active confirmed Problem Bilateral atherosclerosis of arteries of lower limbs (disorder) (57450677358282092 ) Atherosclerosis of [place] artery of both lower extremities, with unspecified presence of clinical manifestation (I70.203) Active confirmed Q7(A), Q8(2B), Q9(1B,2 C) Vital Signs Blood pressure diastolic 65 mm Hg 12/04/2024 Height 5ft4in in 12/04/2024 Blood pressure systolic 120 mm Hg 12/04/2024 Weight 119 lbs 12/04/2024 BMI 20.42 kg/m2 12/04/2024 Encounters Encounter Location Date Provider Diagnosis [facility] [address] [place] [address] 2024 Donya Lepe Atherosclerosis of [place] artery of both lower extremities, with unspecified [...] without damage to nail, initial encounter S90.111A [address] [address] 09/26/2024 Brandi Arredondo Plantar wart B07.0 ; Left foot pain M79.672 ; Atherosclerosis of [place] artery of both lower extremities, with unspecified presence of clinical manifestation I70.203 ; Closed nondisplaced fracture of proximal phalanx of right great toe, initial encounter S92.414A ; Right foot pain M79.671 and Contusion of right great toe without damage to nail, initial encounter S90.111A [address] [address] 12/04/2024 Donya Lepe Plantar wart B07.0 ; Closed nondisplaced fracture of proximal phalanx of right great toe with routine healing S92.414D ; Atherosclerosis of [place] artery of both lower extremities, with unspecified presence of clinical manifestation I70.203 ; Right foot pain M79.671 ; Tinea unguium B35.1 ; Pain in right toe(s) M79.674 ; Pain in left toe(s) M79.675 and Contusion of left lesser toe(s) without damage to nail, initial encounter S90.122A [address] [address] 09/21/2024 Donya Lepe [address] [address] 10/23/2024 Donya Lepe Assessments Encounter Date Diagnosis (ICD Code) Assessment Notes Treatment Notes Treatment Clinical Notes Section Notes 2024 Atherosclerosis of [place] artery of both lower extremities, with unspecified [...] healing (ICD-10 - S92.414D) 12/04/2024 Atherosclerosis of [place] artery of both lower extremities, with unspecified presence of clinical manifestation (ICD-10 - I70.203) Q7(A), Q8(2B), Q9(1B,2C) 09/26/2024 Left foot pain (ICD-10 - M79.672) 2024 Tinea unguium (ICD-10 - B35.1) 2024 Pain in right toe(s) (ICD-10 - M79.674) 09/26/2024 Atherosclerosis of [place] artery of both lower extremities, with unspecified [...] X ray : Foot, right 3V 12/04/2024 [id number] NAIL, -07/15/2015 43206-[id number] NAIL, -11/20/2015 94902-[id number] NAIL, -04/19/2017 44633-Iexx Destruction, -04/19/2017 Insurance Providers Payer Name Payer Address Payer Phone Subscriber Number Group Number Insured Name Patient Relationship to Insured Coverage Start Date Coverage End Date Medicare National Govt Sv[employer] Inc [address] [place] [phone] [id number] Zoe Stafford Self - patient is the insured [employer] Medicare Supplemen t [address] [place] [address] [id number] Zoe Stafford Self - patient is the insured Medical (General) History Medical History History ICD Code Anxiety Cholesterol High blood pressure keloids Osteoporosis Reflux Stomach ulcer Measles Mumps Chicken pox Transfusions Surgical History Surgery Date(Month/Year) cataract surgery 2007 tonsillectomy 1963 teeth extraction 1965 wisdom teeth extraction 1972 ear surgery 1962 kidney surgery 2008 Cataract surgery 2020
--- OUTSIDE RECORDS SUMMARY | 2025-03-22 11:10 | XMS_ITS | Patient Health Record ---
Author Organization [facility] Address [address] [place] [address] Care Team Providers Care Revenue Inspector Name Role Phone NEHEMIAS LYNN Primary Care [...] Status Risk Notes Problem Colon cancer screening (230770445) Colon cancer screening (Z12.11) Active confirmed Problem Right upper quadrant pain (427438417) Right upper quadrant pain (R10.11) Active confirmed Problem Fatigue (34143574) Other fatigue (R53.83) Active confirmed Problem Gastroesophageal reflux disease without esophagitis (398286653) Gastroesophageal reflux disease without esophagitis (K21.9) Active confirmed Problem Duodenal ulcer with hemorrhage (23181746) Duodenal ulcer with hemorrhage (K26.4) Active confirmed Problem Peptic ulcer disease (85426646) Peptic ulcer disease (K27.9) Active confirmed Vital Signs Heart Rate 60 /min 12/26/2024 Temperature 98.6 degrees Fahrenheit 12/26/2024 Blood pressure diastolic 01 mm Hg 12/26/2024 Height 65 in 12/26/2024 Blood pressure systolic 001 mm Hg 12/26/2024 Weight 112.8 lbs 12/26/2024 BMI 18.77 kg/m2 12/26/2024 Encounters Encounter Location Date Provider Diagnosis [facility] [address] [place] [address] 12/26/2024 Alejandro Guzman Jr Gastroesophageal reflux disease without esophagitis K21.9 and Peptic ulcer disease K27.9 [facility] [address] [place] [address] 06/05/2024 Alejandro Guzman Jr [facility] [address] [place] [address] 08/30/2024 Alejandro Guzman Jr [facility] [address] [place] [address] 12/26/2024 Alejandro Guzman Jr [facility] [address] [place] [address] 12/26/2024 Alejandro Guzman Jr [facility] [address] [place] [address] 02/01/2025 Alejandro Guzman Jr Assessments Encounter Date [...] Provider Name:Alejandro rosado Jr, 12/30/2025 10:00:00 AM, [address] [place] [address], [address], [place], [address], Insurance Providers Payer Name Payer Address Payer Phone Subscriber Number Group Number Insured Name Patient Relationship to Insured Coverage Start Date Coverage End Date MEDICARE OF [place] [address] [facility] [place] [address] [phone] [id number] NYDIA CARSON Self - patient is the insured [facility] [address] [place] [address] [id number] NYDIA CARSON Self - patient is the insured Medical (General) History Medical History History ICD Code hypertension hyperlipidemia osteoporosis renal lesion treated with embolization colonoscopy for screening 07/05 normal, t en-year followup right shoulder adhesive capsulitis urinary incontinence 2022 kidney stone Surgical History Surgery Date(Month/Year) kidney surgery oral surgery right ear surgery 1962
== END 2025-03-22 10:19 | disposition home or self-care (01) ==
LOC: HO.HOS 09:46
PROVIDERS: PCP Internal Medicine; Visit Provider Physician Assistant
DX: S82.001A Unspecified fracture of right patella, initial encounter for closed fracture (principal)
CPT/HCPCS: 99213

== ENCOUNTER → 2025-03-22 09:49 | Outpatient (BNV) | payer MEDICARE, OTHER, SELFPAY | PROVIDERS: Visit Provider Radiology Diagnostic Radiology | DX: S82.031A Displaced transverse fracture of right patella, initial encounter for closed fracture (principal) | CPT/HCPCS: 73560 ==

== ENCOUNTER 2025-03-27 10:42 | Outpatient (REF) | payer MEDICARE, OTHER, SELFPAY ==
--- NOTE | ~2025-03-27 | MM_ITS ---
EXAMINATION: DXA BONE DENSITY AXIAL HISTORY: M81.0 - Age-related osteoporosis without current pathological fracture TECHNIQUE: Hydrobolt Dual energy absorptiometry (DEXA) of the lumbar spine, total left hip, and femoral neck was performed. COMPARISON: None. FINDINGS: The bone mineral density of the lumbar spine is 0.932 g/cm2, corresponding to a T-score of -2.1, and a Z-score of 0.1. This is indicative of osteopenia. The bone mineral density of the left total hip is 0.694 g/cm2, corresponding to a T-score of -2.5, and a Z-score of -0.6. This is indicative of osteoporosis. The bone mineral density of the left femoral neck is 0.678 g/cm2, corresponding to a T-score of -2.6, and a Z-score of -0.5. This is indicative of osteoporosis. MM/XR DEXA axial skeleton IMPRESSION: Based on bone mineral density, and according to World Health Organization (WHO) criteria, the diagnosis is consistent with osteoporosis based on lowest T score of -2.6 in the left femoral neck. Treatment Recommendations: NOF guidelines recommend consideration for treatment in postmenopausal women and men age 50 and older presenting with the following: -A hip or vertebral (clinical or morphometric) fracture. -T-score less than or equal to -2.5 at the femoral neck or spine after appropriate evaluation to exclude secondary causes. -Low bone mass at the hip or spine and a 10-year fracture probability by FRAX of greater than or equal to 3% for hip fracture or greater than or equal to 20% for major osteoporotic fracture based on the [place] adapted WHO algorithm. Recommend follow up exam in one year to assess response to treatment. Statistically, 68% of repeat scans fall within 1 SD (+/- 0.010 g/cm2 for AP spine L1-L4) and 1 SD (+/- 0.012 g/cm2 for femur total) FRAX is a trademark of the [employer] Metabolic Bone Disease, a World Health Organization (WHO) Collaborating Center. Electronically signed by: Do Collins MD 03/27/2025 02:58 PM EST VINICIUS
== END 2025-03-27 10:43 | disposition home or self-care (01) ==
LOC: HO.MAMMO 10:42
PROVIDERS: PCP Internal Medicine; Visit Provider Physician Assistant Medical
DX: Z12.31 Encounter for screening mammogram for malignant neoplasm of breast (principal); M81.0 Age-related osteoporosis without current pathological fracture
CPT/HCPCS: 77063; 77067; 77080

== ENCOUNTER → 2025-03-27 11:30 | Outpatient (BNV) | payer MEDICARE, OTHER, SELFPAY | PROVIDERS: PCP Internal Medicine; Visit Provider Radiology Diagnostic Radiology | DX: E28.39 Other primary ovarian failure (principal) | CPT/HCPCS: 77080 ==

== ENCOUNTER 2025-04-22 12:37 | Outpatient (REF) | payer MEDICARE, OTHER, SELFPAY ==
--- NOTE | ~2025-04-22 | US_ITS ---
EXAMINATION: US RETROPERITONEAL LIMITED (RENAL ONLY) CLINICAL INFORMATION: N20.0. Calculus of kidney.. COMPARISON: December 15, 2023 Correlated to MRI abdomen dated July 21, 2024 demonstrated a 2 cm angiomyolipoma, right kidney.. TECHNIQUE: Real-time ultrasound kidneys using grayscale and color Doppler technique. FINDINGS: RIGHT KIDNEY: 10 x 5 x 4 cm (SAG x AP x TRV). Normal echotexture. Renal cortical thickness is normal. No hydronephrosis. 1.9 cm hyperechoic structure at the corticomedullary junction of the lower pole without flow on color Doppler interrogation. 0.6 cm anechoic lesion in the midportion without septations or nodular components. LEFT KIDNEY: 9 x 4 x 5 cm (SAG x AP x TRV). Normal echotexture. Renal cortical thickness is normal. No hydronephrosis. No solid or cystic lesion. 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 Stable. 0.6 cm cyst, right kidney. No hydronephrosis or gross nephrolithiasis.. Electronically signed by: Rey Baugh MD 04/22/2025 01:44 PM NIKI
== END 2025-04-22 12:38 | disposition home or self-care (01) ==
LOC: HO.HMGCX 12:37
PROVIDERS: PCP Internal Medicine; Visit Provider Nurse Practitioner Family
DX: N20.0 Calculus of kidney (principal); N39.0 Urinary tract infection, site not specified; N28.1 Cyst of kidney, acquired
CPT/HCPCS: 76775

== ENCOUNTER → 2025-04-22 12:56 | Outpatient (BNV) | payer MEDICARE, OTHER, SELFPAY | PROVIDERS: PCP Internal Medicine; Visit Provider Radiology Diagnostic Radiology | DX: N28.1 Cyst of kidney, acquired (principal) | CPT/HCPCS: 76775 ==

== ENCOUNTER 2025-05-06 12:03 | Outpatient (AMB) | payer MEDICARE, OTHER, SELFPAY ==
--- NOTE | 2025-05-06 12:09 | MHC.OFFVIS ---
Intake Visit Reasons: OV-right patella fracture, DOI 02/13/25-xrays? Intake Note: Zoe is a 69 year old female who presents today for a follow up of her right knee patella injury, DOI 02/13/25. Patient reports she is doing well. Allergies aspirin Adverse Reaction (Unknown, Uncoded 02/26/25 11:11) has an ulcer naproxen Adverse Reaction (Unknown, Uncoded 02/26/25 11:11) ulcer HPI HPI OV-right patella fracture, DOI 02/13/25-xrays?: Details: The patient is a 69-year-old female who presents to the office today for routine follow-up status post right patellar fracture that occurred on 02/13/2025. Patient has been wearing the ACL brace and working with physical therapy unlocking the brace by 10 degrees each week since her last appointment. She denies any pain. Denies any difficulties with ambulation. No additional complaints. [facility] Medical History Right patella fracture Right knee pain Vitamin B12 deficiency Vitamin D deficiency History of mammogram (~01/03/24) Preventative health care GERD (gastroesophageal reflux disease) Hyperlipidemia Annual physical exam Establishing care with new doctor, encounter for Hx of gastric ulcer COVID-19 vaccine series completed Osteoporosis Benign tumor of kidney Hypertension Surgical History S/P ear surgery History of tonsillectomy and adenoidectomy Hx of colonoscopy (~07/13/19) Hx of left cataract extraction [place] teeth extracted Family History Father Prostate cancer Water on the lung Mother H/O: hysterectomy Heart problem Cancer Social History Housing: Apartment Are you a primary family day care worker to a significant other at home: No Do you presently have visiting nurse or other home services: No Alcohol intake: current Alcohol intake frequency: holidays/special occasions only Patient Tobacco Use Status: Never used Tobacco service: No Current occupational status: retired Cognitive needs: No Hearing needs: Yes ((b/l hearing aids)) Vision needs: Yes (rx glasses) Review of Systems Const All systems reviewed & are unremarkable except as noted in HPI and below Physical Exam Const General: cooperative, healthy appearing and no acute distress Resp Effort & Inspection: normal respiratory effort and able to speak in complete sentences Extrem Other: Right knee range of motion 0-120 degrees. No tenderness to palpation over the patella at the fracture site. NVI. Psych Appearance: grossly normal Mental Status: mental status grossly normal Attitude: cooperative Assessment & Plan Assessment & Plan (1) Right patella fracture: Code(s): S82.001A - Unspecified fracture of right patella, initial encounter for closed fracture Category: Medical Plan The patient is a 69-year-old female who presents to the office today for routine follow-up status post right patellar fracture that occurred on 02/13/2025. Patient has been wearing the ACL brace and working with physical therapy unlocking the brace by 10 degrees each week since her last appointment. She denies any pain. Denies any difficulties with ambulation. No additional complaints. On the office today, repeat x-rays of the right knee were obtained and demonstrate routine healing of the right patellar fracture. She reports she has 1 more physical therapy sessions scheduled and then she will be discharged as she has met all goals. She will discontinue the ACL brace at this time. She will resume back to normal activities using pain as her guide. She will follow up PRN, sooner if needed. Orders: Orders XR knee RT 2V Today M25.569 - Pain in unspecified knee Coding Level of Care Code Est Pt Level 3 (48611) Add On Problem Visit Only Diagnoses Right patella fracture S82.001A
== END 2025-05-06 12:42 | disposition home or self-care (01) ==
LOC: HO.HOS 12:04
PROVIDERS: Visit Provider Physician Assistant
DX: S82.001A Unspecified fracture of right patella, initial encounter for closed fracture (principal)
CPT/HCPCS: 99213; G2211

== ENCOUNTER 2025-05-06 12:03 | Outpatient (REF) | payer MEDICARE, OTHER, SELFPAY ==
--- NOTE | ~2025-05-06 | XR_ITS ---
EXAMINATION: XR KNEE, RIGHT CLINICAL INFORMATION: M25.569 - Pain in unspecified knee COMPARISON: X-ray 03/22/2025 TECHNIQUE: Two views of the right knee. FINDINGS: Redemonstrated transverse fracture of the middle third of the patella stable position and alignment. Mild healing changes with mild decreased conspicuity of the fracture plane. No new acute fractures. No effusion. XR/XR knee RT 2V IMPRESSION: Mild healing changes of the transverse fracture of the patella. Electronically signed by: Dheeraj Kendall MD 05/07/2025 07:38 AM NIKI
== END 2025-05-06 12:04 | disposition home or self-care (01) ==
LOC: HO.HOSX 12:03
PROVIDERS: Visit Provider Physician Assistant
DX: S82.001D Unspecified fracture of right patella, subsequent encounter for closed fracture with routine healing (principal); X58.XXXD Exposure to other specified factors, subsequent encounter
CPT/HCPCS: 73560

== ENCOUNTER → 2025-05-06 12:04 | Outpatient (BNV) | payer MEDICARE, OTHER, SELFPAY | PROVIDERS: Visit Provider Radiology Diagnostic Ultrasound | DX: S82.031D Displaced transverse fracture of right patella, subsequent encounter for closed fracture with routine healing (principal) | CPT/HCPCS: 73560 ==

== ENCOUNTER 2025-05-08 11:00 | Outpatient (RCR) | payer MEDICARE, OTHER, SELFPAY ==
--- NOTE | 2025-04-09 11:46 | MHC.PT.EP ---
[facility] [place] Office [place] Office [place] Office [address] [phone] F: [phone] F: [phone] F: [phone] F: [phone] Physical Therapy Plan of Care Date of Evaluation: 04/09/25 Date of Surgery: n/a Diagnosis: R patella fx Assessment: Patient is a 69 year old female presenting to PT with R patella fx. Pt reports onset of pain began about 1 month ago due to a fall. She presents today with impairments in pain, knee ROM, knee strength, hip strength. Pt's current occupation is retired, with baseline physical activities including ambulating, ADLs, stair negotiation. Pt expresses continuous churn buttermaker goal of returning to PLOF, and is motivated to work towards this in PT. Clinical presentation today is most consistent with signs and sx associated with R patella fx and pt will benefit from skilled PT 2 week x 4 weeks to address the following problems and impairments noted upon evaluation: pain, knee ROM, knee strength, hip strength. These problems limit the patient with the following functional activities: ambulating, ADLs, stair negotiation. The prescribed treatment plan of care is medically necessary. Co-morbidities of osteoporosis were identified and taken into considerations of plan of care. Pt was educated on HEP, role of PT, prognosis, POC. Frequency and Duration: The patient will be seen 2 x week x4 weeks Short Term Goals: Pt will demonstrate compliance with knee flexion restrictions in 1 visit. Pt will demonstrate improved hip MMT strength by 1/3 grade in 2 weeks. Mcc Goals: Pt will demonstrate improved LEFI score by 9 points in 4 weeks for improved functional mobility. Pt will demonstrate ability to flex her knee to functional ranges pending ortho clearance in 4 weeks for improved tolerance to gait and stairs. Treatment Plan: Modalities to reduce pain, spasms and effusion. Manual therapy to restore motion and function. Therapeutic exercise to improve strength and flexibility. Neuromuscular re-education for posture and balance. Therapeutic activities to return to functional activities of daily living. Electronically signed by: Bessy Graves, PT, DPT, ATC Please sign and return to therapist. Thank you for your referral.
--- NOTE | 2025-05-13 07:22 | MHC.PT.DC ---
[facility] [place] Office [place] [facility] [place] Office [address] Rai Sanders [address] [phone] F: [phone] F: [phone] F: [phone] F: [phone] Physical Therapy Discharge Report Diagnosis: R patella fx Date of Surgery: n/a Date of Evaluation: 04/09/25 Date of Discharge: 05/13/25 Treatments to Date: 4 Cancellations to Date: 0 No Shows to Date: 0 Discharge Status: Discharge Summary: Pt saw [employer] for final visit. Pt is not having pain and demonstrating good function. Electronically signed by: Bessy Graves PT, DPT, ATC Please sign and return to therapist. Thank you for your referral.
== END 2025-05-13 07:23 | disposition home or self-care (01) ==
LOC: HO.PTCHIC 11:00
PROVIDERS: PCP Internal Medicine; Visit Provider Physician Assistant
DX: S82.001D Unspecified fracture of right patella, subsequent encounter for closed fracture with routine healing (principal)
CPT/HCPCS: 97110; 97161